=== PATIENT | female | born 1955 ===

== ENCOUNTER 2020-02-02 09:57 | Outpatient (REF) | payer OTHER, SELFPAY ==
[2020-02-02 15:10] LABS: Alanine Aminotransferase 14 U/L (0-31); Albumin Level 4.4 g/dL (3.5-5.0); Alkaline Phosphatase 66 U/L (39-117); Anion Gap 15 (12-20); Aspartate Amino Transferase 10 U/L (5-31); Bilirubin Total 0.5 mg/dL (0.0-1.0); Blood Urea Nitrogen 15 mg/dL (9-16); Calcium 8.9 mg/dL (8.4-10.2); Carbon Dioxide 25 mmol/L (22-29); Chloride 103 mmol/L (96-108); Cholesterol 221 mg/dL; Estimated Glomerular Filt Rate > 60; Glucose Fasting 87 mg/dL (60-99); HDL Cholesterol 86 mg/dL; LDL Cholesterol Calculated 122 mg/dl; Potassium 4.2 mmol/l (3.3-5.1); Sodium 139 mmol/L (135-145); Total Protein 6.8 g/dL (6.5-8.0); Triglycerides 65 mg/dL
[2020-02-02 15:32] LABS: Vitamin D 25-OH Total 40.9 ng/mL (>30)
== END 2020-02-02 09:58 | disposition home or self-care (01) ==
LOC: HO.10HDL 09:57
PROVIDERS: Visit Provider Internal Medicine
DX: E78.00 Pure hypercholesterolemia, unspecified (principal); E55.9 Vitamin D deficiency, unspecified
CPT/HCPCS: 80053; 80061; 82306

== ENCOUNTER 2020-05-23 09:46 | Outpatient (REF) | payer MEDICAID, SELFPAY ==
[2020-05-23 13:48] LABS: MANUAL DIFF FLAG NO
[2020-05-23 13:57] LABS: Basophils Percent Auto 0.5 % (0-2); Eosinophils Absolute Auto 0.4 X10*3/uL (0.0-0.4); Eosinophils Percent Auto 7.2 % (0-4); Hemoglobin 12.6 g/dl (12.0-16.0); Imm Gran Abs Auto 0.02 X10*3/uL (0.00-0.03); Imm Gran Pct Auto 0.3 % (0.0-0.4); Lymphocytes Absolute Auto 2.1 X10*3/uL (1.2-4.9); Lymphocytes Percent Auto 35.6 % (20-40); Mean Corpuscular HGB Conc 32.3 g/dl (31.0-35.0); Mean Corpuscular Hemoglobin 29.9 pg (27.0-33.0); Mean Corpuscular Volume 92.4 fL (80-98); Mean Platelet Volume 9.9 fL (9.4-12.3); Monocytes Absolute Auto 0.3 X10*3/uL (0.1-1.2); Monocytes Percent Auto 4.8 % (2-11); Neutrophils Percent Auto 51.6 % (45-73); Platelet Count 434 X10*3/uL (160-400); Red Blood Count 4.22 X10*6/uL (4.20-5.50); Red Cell Distribution Width 13.2 % (11.0-16.0); White Blood Count 5.8 X10*3/uL (4.8-10.8)
[2020-05-23 14:17] LABS: Anion Gap 15 (12-20); Blood Urea Nitrogen 19 mg/dL (9-16); Calcium 9.5 mg/dL (8.4-10.2); Carbon Dioxide 26 mmol/L (22-29); Chloride 104 mmol/L (96-108); Estimated Glomerular Filt Rate > 60; Glucose Fasting 90 mg/dL (60-99); Magnesium 2.3 mg/dL (1.6-2.6); Potassium 4.4 mmol/L (3.3-5.1); Sodium 141 mmol/L (135-145)
[2020-05-23 14:40] LABS: Erythrocyte Sedimentation Rate 7 MM/HR (0-20)
[2020-05-30 16:02] LABS: Vitamin D 25-OH, D2 10 ng/mL; Vitamin D 25-OH, D3 39 ng/mL; Vitamin D 25-OH, Total 49 ng/mL (30-100)
== END 2020-05-23 09:47 | disposition home or self-care (01) ==
LOC: HO.10HDL 09:46
PROVIDERS: Absent Provider Nurse Practitioner Family; Visit Provider Internal Medicine
DX: M79.10 Myalgia, unspecified site (principal); F41.9 Anxiety disorder, unspecified; E55.9 Vitamin D deficiency, unspecified
CPT/HCPCS: 36415; 80048; 82306; 82550; 83735; 85025; 85652

== ENCOUNTER → 2020-09-20 09:29 | Outpatient (BNVA) | payer MEDICARE, MEDICAID, SELFPAY | PROVIDERS: PCP Internal Medicine; Visit Provider Internal Medicine Gastroenterology | DX: R13.10 Dysphagia, unspecified (principal) | CPT/HCPCS: 99212 ==

== ENCOUNTER 2020-10-14 09:40 | Outpatient (REF) | payer MEDICARE, MEDICAID, SELFPAY ==
--- NOTE | ~2020-10-14 | US_ITS ---
EXAMINATION: US THYROID CLINICAL INFORMATION: Followup multinodular goiter. COMPARISON: Thyroid ultrasound 10/12/2019 and 03/15/2019. Ultrasound-guided thyroid biopsy 04/14/2018. TECHNIQUE: Linear transducer haley-scale and color Doppler examination with attention to the region of the thyroid. FINDINGS: SIZE: Measurements of the thyroid lobes and nodules are given in sagittal, anteroposterior and transverse dimensions respectively. Right Thyroid Lobe: 5.2 x 2.8 x 2.6 cm, volume 19.8 mL. Previously 5.9 x 2.9 x 2.8 cm, volume 24.9 mL. Parenchyma: The gland echotexture is homogeneous. Thyroid vascularity is normal. Left Thyroid Lobe: 5.3 x 2.4 x 2.2 cm, volume 14.6 mL. Previously 6.4 x 2.4 x 2.3 cm, volume 18.8 mL. Parenchyma: The gland echotexture is homogeneous. Thyroid vascularity is normal. Isthmus: 0.3 cm in maximum AP dimension. Previously 0.4 cm. Estimated total number of nodules greater than or equal to 1 cm: 3. Matchbook Assembler nodules are described as follows: 1. Location: Right mid pole. Size: 1.3 x 1.0 x 1.7 cm, volume 1.17 mL. Previously: 1.5 x 1.2 x 1.3 cm, volume 1.18 mL. Nodule characteristics: Composition: Solid/almost completely solid (2). Echogenicity: Hypoechoic (2). Shape: Not taller than wide (0). Margins: Smooth (0). Echogenic Foci: Macrocalcifications (1). ACR TI-RADS total points: 5 Previous: N/A ACR TI-RADS category: 4 Previous: N/A Significant change in size (>/= 20% in 2 dimensions and minimal increase of 2 mm or 50% or greater increase in volume): Change in features: Change in ACR TI-RADS risk category: N/A 2. Location: Left mid pole. Size: 1.5 x 1.0 x 1.4 cm, volume 1.1 mL. Previously: 1.2 x 0.7 x 1.0 cm, volume 0.45 mL. Measurement differences may be due to technical factors/interobserver variation of nodule borders. Nodule characteristics: Composition: Solid/almost completely solid (2). Echogenicity: Hyperechoic (1). Shape: Not taller than wide (0). Margins: Smooth (0). Echogenic Foci: None (0). ACR TI-RADS total points: 3 Previous: N/A ACR TI-RADS category: 3 Previous: N/A Significant change in size (>/= 20% in 2 dimensions and minimal increase of 2 mm or 50% or greater increase in volume): Change in features: Change in ACR TI-RADS risk category: N/A 3. Location: Left lower pole. Size: 1.2 x 1.2 x 1.9 cm, volume 1.4 mL. Previously: 2.2 x 1.7 x 1.8 cm, volume 3.5 mL. Measurement differences may be due to technical factors/interobserver variation of nodule borders. Nodule characteristics: Composition: Solid/almost completely solid (2). Echogenicity: Hyperechoic (1). Shape: Not taller than wide (0). Margins: Smooth (0). Echogenic Foci: None (0). ACR TI-RADS total points: 3 Previous: N/A ACR TI-RADS category: 3 Previous: N/A Significant change in size (>/= 20% in 2 dimensions and minimal increase of 2 mm or 50% or greater increase in volume): Change in features: Change in ACR TI-RADS risk category: N/A NODES: No lymphadenopathy is seen in the tissue surrounding the thyroid gland. US/US thyroid IMPRESSION: Enlarged thyroid gland with bilateral thyroid nodules. Measurement differences in the nodules may be due to technical factors interobserver variation of nodule borders. Right thyroid nodule meets TI-RADS criteria for fine-needle aspiration. ACR TI-RADS RECOMMENDATION REFERENCE: Ultrasound-guided fine-needle aspiration, followup ultrasound, no further followup. * TR1 (0 point) and TR 2 (2 points): No FNA or followup. * TR3 (3 points): FNA if more than or equal to 2.5 cm in maximum dimension, followup ultrasound in 1, 3 and 5 years if 1.5 to 2.4 cm in maximum dimension. * TR4 (4-6 points): FNA if more than or equal to 1.5 cm in maximum dimension, followup ultrasound in 1, 2, 3 and 5 years if 1 to 1.4 cm in maximum dimension. * TR5 (more than or equal to 7 points): FNA if more than or equal to 1 cm in maximum dimension, followup ultrasound every year for 5 years if 0.5 to 0.9 cm in maximum dimension. * TR3, TR4 or TR5 nodules that are below the size threshold for followup receive no followup.
[2020-10-14 11:18] LABS: Free T4 (Free Thyroxine) 0.85 ng/dL (0.71-1.85); Thyroid Stimulating Hormone 0.15 uIU/mL (0.32-4.0)
== END 2020-10-14 09:41 | disposition home or self-care (01) ==
LOC: HO.US 09:40
PROVIDERS: Visit Provider Internal Medicine Endocrinology, Diabetes & Metabolism
DX: E04.2 Nontoxic multinodular goiter (principal)
CPT/HCPCS: 36415; 76536; 84439; 84443

== ENCOUNTER 2020-10-15 08:47 | Outpatient (REF) | payer MEDICARE, MEDICAID, SELFPAY ==
[2020-10-15 10:53] LABS: Free T4 (Free Thyroxine) 0.94 ng/dL (0.71-1.85); Thyroid Stimulating Hormone 0.38 uIU/mL (0.32-4.0)
[2020-10-16 10:36] LABS: Triiodothyronine T3 Total 81 ng/dL (76-181)
[2020-10-18 15:57] LABS: Thyroid Stimulating Immunoglob <89 % baseline (<140)
[2020-10-18 21:51] LABS: Thyrotropin Receptor Antibody <1.00 IU/L (<=2.00)
== END 2020-10-15 08:48 | disposition home or self-care (01) ==
LOC: HO.10HDL 08:47
PROVIDERS: Visit Provider Internal Medicine Endocrinology, Diabetes & Metabolism
DX: E04.2 Nontoxic multinodular goiter (principal); R79.89 Other specified abnormal findings of blood chemistry
CPT/HCPCS: 36415; 83520; 84439; 84443; 84445; 84480

== ENCOUNTER 2020-11-27 08:24 | Outpatient (REF) | payer MEDICARE, MEDICAID, SELFPAY ==
[2020-11-27 10:47] LABS: MANUAL DIFF FLAG NO
[2020-11-27 10:56] LABS: Basophils Percent Auto 0.4 % (0-2); Eosinophils Absolute Auto 0.4 X10*3/uL (0.0-0.4); Hematocrit 38.5 % (37-47); Hemoglobin 12.7 g/dl (12.0-16.0); Imm Gran Abs Auto 0.02 X10*3/uL (0.00-0.03); Imm Gran Pct Auto 0.3 % (0.0-0.4); Lymphocytes Absolute Auto 1.9 X10*3/uL (1.2-4.9); Lymphocytes Percent Auto 26.3 % (20-40); Mean Corpuscular Hemoglobin 30.2 pg (27.0-33.0); Mean Corpuscular Volume 91.7 fL (80-98); Mean Platelet Volume 9.9 fL (9.4-12.3); Monocytes Absolute Auto 0.4 X10*3/uL (0.1-1.2); Monocytes Percent Auto 5.6 % (2-11); Neutrophils Absolute Auto 4.5 X10*3/uL (2.0-8.3); Neutrophils Percent Auto 62.4 % (45-73); Platelet Count 482 X10*3/uL (160-400); Red Cell Distribution Width 13.2 % (11.0-16.0); White Blood Count 7.1 X10*3/uL (4.8-10.8)
[2020-11-27 11:18] LABS: Alanine Aminotransferase 13 U/L (0-31); Albumin Level 4.4 g/dL (3.5-5.0); Alkaline Phosphatase 68 U/L (39-117); Anion Gap 13 (12-20); Aspartate Amino Transferase 9 U/L (5-31); Bilirubin Total 0.8 mg/dL (0.0-1.0); Blood Urea Nitrogen 8 mg/dL (9-16); Calcium 9.9 mg/dL (8.4-10.2); Carbon Dioxide 26 mmol/L (22-29); Chloride 103 mmol/L (96-108); Cholesterol 203 mg/dL; Estimated Glomerular Filt Rate > 60; Glucose Fasting 107 mg/dL (60-99); HDL Cholesterol 80 mg/dL; LDL Cholesterol Calculated 108 mg/dl; Potassium 4.1 mmol/L (3.3-5.1); Sodium 138 mmol/L (135-145); Total Protein 6.6 g/dL (6.5-8.0); Triglycerides 75 mg/dL
== END 2020-11-27 08:25 | disposition home or self-care (01) ==
LOC: HO.10HDL 08:24
PROVIDERS: Visit Provider Internal Medicine
DX: Z13.89 Encounter for screening for other disorder (principal)
CPT/HCPCS: 36415; 80053; 80061; 85025

== ENCOUNTER 2020-11-27 13:19 | Outpatient (REF) | payer MEDICARE, MEDICAID, SELFPAY ==
--- NOTE | ~2020-11-27 | MM_ITS ---
EXAMINATION: MM SCREENING DIGITAL BREAST TOMOSYNTHESIS, BILATERAL CLINICAL INFORMATION: Screening. Asymptomatic. The lifetime risk of breast cancer based on the Tyrer-Cuzick Model is 9%. COMPARISON: Mammography: 12/11/2019, 11/22/2019, 06/27/2018, 06/24/2017 TECHNIQUE: Digital breast tomosynthesis is performed in both the craniocaudal and mediolateral oblique views along with computer-aided detection (CAD). Synthesized 2D images are generated from the tomosynthesis. Additional left MLO view is provided. FINDINGS: There are scattered areas of fibroglandular density (ACR BI-RADS breast composition Category b). Parenchymal pattern is similar to prior exams. Scattered minor parenchymal asymmetries are stable. There is no developing density. No interval mass or architectural abnormality. There are scattered bilateral benign round and coarse and vascular calcifications again seen. The axilla and skin contours are unremarkable. MM/MM tomosynthesis screening BI IMPRESSION: No mammographic evidence of malignancy. ASSESSMENT: BI-RADS 2: Benign RECOMMENDATION: Routine annual mammography screening. This patient's information was entered into a reminder system with a target due date for their next mammogram.
== END 2020-11-27 13:20 | disposition home or self-care (01) ==
LOC: HO.MAMMO 13:19
PROVIDERS: PCP Internal Medicine; Visit Provider Internal Medicine Endocrinology, Diabetes & Metabolism
DX: Z12.31 Encounter for screening mammogram for malignant neoplasm of breast (principal)
CPT/HCPCS: 36415; 77063; 77067; 80053; 80061; 85025

== ENCOUNTER 2020-12-25 09:48 | Day surgery (SDC) | payer MEDICARE, MEDICAID, SELFPAY ==
[2020-12-20 10:25] VITALS: BMI 23.8
--- NOTE | 2020-12-24 10:25 | HO.ANESPROP2 ---
Documented by User: Aditi Hdez NP 12/24/20 10:26 HPI - Anesthesia Eval Consult details Narrative: 65yo F for Upper Endoscopy and Colonoscopy h/o ileostomy and reversal (2017) [facility] Active Problems Active Problems: All Active Problems (Updated 12/20/20 @ 10:34 by Esthela Townsend RN) Dysphagia (Acute) Mild recurrent major depression (Acute) Tachycardia (Acute) Low TSH level (Acute) Multinodular goiter (Acute) Muscle ache (Acute) Hypovitaminosis D (Acute) Anxiety (Acute) Past Medical History Medical History Anxiety COVID-19 vaccine series completed Hypovitaminosis D Low TSH level Mild recurrent major depression Multinodular goiter Muscle ache Tachycardia Family History Family History Father Colon cancer Mother Breast cancer Brother Brain cancer Paternal Uncle Lung cancer Sister Breast cancer Substance use disorder Surgical History Surgical History H/O colonoscopy History of ankle surgery History of appendectomy History of ileostomy History of reversal of ileostomy History of tonsillectomy Social History Social History Housing: House Are you a primary hospice home care coordinator to a significant other at home: No Do you presently have visiting nurse or other home services: No Patient Tobacco Use Status: Never used Tobacco e-Cigarette/Vaping Use: Never Used Second Hand Smoke Exposure: No Have you been hit, kicked, punched, or otherwise hurt by someone within the past year? If so, by whom?: No Are you DNR?: No Advance Directives: No (Pt states she has one - asked to bring in copy) Advance Directives Information Provided: No Advance Directives on File: No (Pt states should be on file here from 2016) Recently lost weight without trying: No Eating poorly because of decreased appetite: No Nutrition Risks: No Nutritional Risk Patient : No service: No Current occupational status: unemployed Meds Allergies Allergy/AdvReac Type Severity Reaction Status Date / Time acetaminophen [Percocet] Allergy Intermediate formication Verified 11/20/20 09:00 hydrocodone [From VICODIN] AdvReac Intermediate VOMMITING,DIZZY, Verified 11/20/20 09:00 NAUSEA tramadol [TRAMADOL] AdvReac Intermediate NAUSEA & Verified 11/20/20 09:00 VOMITING oxycodone [From Percocet] AdvReac Mild Formication Verified 11/20/20 09:00 Exam Exam Date and Time: December 24, 2020 1025 Height,Weight and Vital Signs: Height 5 ft 2 in Weight 58.967 kg Pertinent Lab Results Pertinent Lab Results: Laboratory Tests 11/27/20 11/27/20 08:30 08:30 WBC 7.1 Hgb 12.7 Hct 38.5 Plt Count 482 H Sodium 138 Potassium 4.1 Chloride 103 Carbon Dioxide 26 BUN 8 L D Creatinine 0.85 Assessment and Plan Assessment Anesthesia Assessment: Chart Reviewed Documented by User: Yodit Yost MD 12/25/20 10:13 [facility] Past Medical History Medical History Anxiety COVID-19 vaccine series completed Hypovitaminosis D Low TSH level Mild recurrent major depression Multinodular goiter Muscle ache Tachycardia Family History Family History Father Colon cancer Mother Breast cancer Brother Brain cancer Paternal Uncle Lung cancer Sister Breast cancer Substance use disorder Family history of problems with anesthesia: No Surgical History Surgical History H/O colonoscopy History of ankle surgery History of appendectomy History of ileostomy History of reversal of ileostomy History of tonsillectomy History of Problems with Anesthesia: Yes (Ponv. Patient requesting scopalamine patch) Social History Social History Housing: House Are you a primary hospice home care coordinator to a significant other at home: No Do you presently have visiting nurse or other home services: No Patient Tobacco Use Status: Never used Tobacco e-Cigarette/Vaping Use: Never Used Second Hand Smoke Exposure: No Have you been hit, kicked, punched, or otherwise hurt by someone within the past year? If so, by whom?: No Are you DNR?: No Advance Directives: No (Pt states she has one - asked to bring in copy) Advance Directives Information Provided: No Advance Directives on File: No (Pt states should be on file here from 2016) Recently lost weight without trying: No Eating poorly because of decreased appetite: No Nutrition Risks: No Nutritional Risk Patient : No service: No Current occupational status: unemployed Meds Allergies Allergy/AdvReac Type Severity Reaction Status Date / Time acetaminophen [Percocet] Allergy Intermediate formication Verified 11/20/20 09:00 hydrocodone [From VICODIN] AdvReac Intermediate VOMMITING,DIZZY, Verified 11/20/20 09:00 NAUSEA tramadol [TRAMADOL] AdvReac Intermediate NAUSEA & Verified 11/20/20 09:00 VOMITING oxycodone [From Percocet] AdvReac Mild Formication Verified 11/20/20 09:00 Exam Height,Weight and Vital Signs: Height 5 ft 2 in Weight 58.967 kg Vital Signs Temp Pulse Resp BP Pulse Ox 12/25/20 10:05 99.9 F 85 16 128/92 H 98 Airway Mallampati Class: II TM Dist: >3cm Neck ROM: Full Loose/Missing/Broken Teeth: Yes (Missing top left) Heart: RRR Lungs: CTAB Assessment and Plan Assessment Anesthesia Assessment: Anesthesia Plan Discussed Final Anesthetic Review Family History of Problems with Anesthesia: No History of Problems with Anesthesia: Yes (Ponv. Patient requesting scopalamine patch) NPO: Yes ASA Class: II Final Preanesthetic Review: No Changes in Pt Med Stat, Meds/Allgs Chart Reviewed, Consent Obtained/Reviewed and Anes Risks/Benef Reviewed Patient Risk: Low Procedure Risk: Low Assessment/Block/Sedation in SS: Assess/Block/Sedation-SS Anesthetic Plan Anesthetic Plan: MAC: Disposition: Standard PACU
[2020-12-25 10:05] VITALS: BP 128/92; PULSE 85; RESP 16; TEMP 37.7; O2SAT 98
--- NOTE | 2020-12-25 10:05 | MHC.SHP ---
Pre-Procedural Eval Section A Date of Service: 12/25/20 Section B Chief Complaint: dysphagia Details of Present Illness: father had CRC Relevant Family History (Specify if Yes): Yes Relevant Social History: None Present Medications: see Short Stay Collaborative assessment Medical History: Significant History (Anxiety COVID-19 vaccine series completed Hypovitaminosis D Low TSH level Mild recurrent major depression Multinodular goiter Muscle ache Tachycardia) History of Previous Operations: Relevant previous surgery/procedure and date(s) (H/O colonoscopy History of ankle surgery History of appendectomy History of ileostomy History of reversal of ileostomy History of tonsillectomy) Allergies: Allergies Allergy/AdvReac Type Severity Reaction Status Date / Time acetaminophen [Percocet] Allergy Intermediate formication Verified 11/20/20 09:00 hydrocodone [From VICODIN] AdvReac Intermediate VOMMITING,DIZZY, Verified 11/20/20 09:00 NAUSEA tramadol [TRAMADOL] AdvReac Intermediate NAUSEA & Verified 11/20/20 09:00 VOMITING oxycodone [From Percocet] AdvReac Mild Formication Verified 11/20/20 09:00 Review of Systems Sugical H&P ROS: Negative: Constitution, Cardiovascular, Respiratory, Neurological, Psychiatric, Hem-Onc, Allergic/Immunologic, Gastrointestinal, Genitourinary, Musculoskeletal, Integumentary, Endocrine and Eyes/Ears/Nose/Throat Exam Surgical H&P Exam: Normal: HEENT, Normal: Heart, Normal: Lungs, Normal: Extremities, Normal: Abdomen, Normal: Skin and Normal: Neurological Plan Diagnosis/Plan: Unchanged I have reviewed the history and physical and performed a pertinent physical examination on my patient. No changes have occurred unless specified.
[2020-12-25] MEDS: Scopolamine 1.5 MG PATCH.TD.3 TRANSDERMA (10:28)
[2020-12-25] MEDS: Lactated Ringers 1,000 ML 100 ML IVCONT (10:31)
--- NOTE | 2020-12-25 11:04 | P.BOP_ITS ---
Brief Operative Note Date of Service: 12/25/20 Pre-op diagnosis: dysphagia and screening colonoscopy Post-op diagnosis: same Procedure: see op note Surgeon: Kimber White MD Anesthesia: MAC Was an Financial Quantitative Analyst used for this Procedure?: No Estimated blood loss (mL): 0 Condition: stable Disposition: PACU
--- NOTE | 2020-12-25 11:04 | P.OP_ITS ---
Operative Note Operative Note Date of Service: 12/25/20 Narrative: Operative Information Procedure Description: EGD, Colonoscopy FLEXIBLE TRANSORAL UPPER GASTROINTESTINAL ENDOSCOPY AND COLONOSCOPY PROCEDURE NOTE UPPER ENDOSCOPY Consent: Indications for the procedure and potential complications of bleeding, perforation, reaction to medications and missed diagnosis were discussed with the patient and informed consent was obtained. Instrument: Olympus GIF H 190 J mid size upper endoscope Monitoring: Vital signs and clinical assessment, continuous EKG monitoring, Pulse oximetry, Carbon Dioxide monitoring and blood pressure monitoring were done throughout the procedure. Procedure: The patient was placed in the left lateral decubitis position and pre-procedure medications were administered and a bite block was placed. The endoscope was inserted into the mouth and advanced under direct vision to the third part of duodenum. A careful inspection was made as the upper endoscope was withdrawn including a retroflexed examination of the proximal stomach; Findings and interventions are described below. Findings: Larynx:normal Esophagus: GE junction at 38 cm, diaphragm hiatus at 38 cm, balloon dilation to 20 mm at lower esophagus, small tear noted at GEJ. Before dilation LA grade A esophagitis noted. random esophagus bx taken. Aslo upper esophagus dilated to 19 mm. Tertiary contractions noted Stomach: Streaky erythema. Biopsies were obtained. Grade 2 flap valve on retroflexed examination of the cardia. Duodenum: Mild bulbar duodenitis, normal descending duodenum, bx taken Intervention: Biopsies as noted above COLONOSCOPY Instrument: Olympus variable stiffness pediatric scope 190L Colonoscopy Monitoring: Vital signs and clinical assessment, continuous EKG monitoring, Pulse oximetry, Carbon Dioxide monitoring and blood pressure monitoring were done throughout the procedure. Colon withdrawal time was 11 minutes. Procedure: The patient was placed in the left lateral decubitis position and pre-procedure medications were administered. After a digital rectal examination of the ano-rectum, the video colonoscope was inserted into the rectum and advanced through the colon to the cecum/TI. The colonoscope was slowly withdrawn in a retrograde panoramic fashion and the colon mucosa was carefully examined including a retroflexed view of the rectum. Findings and interventions are described below. Procedure Difficulty: easy Findings: Terminal Ileum-normal Cecum:normal Ascending Colon: normal Transverse Colon -normal Descending Colon:normal Sigmoid Colon: scattered diverticula noted Rectum: Retroflexion with moderate sized internal hemorrhoids, grade I Anorectum - normal Colon preparation: [place] Bowel Preparation Scale Right colon; 2 (borderline 2--sticky stool adherent to mucosa, hard to wash) Transverse colon: 3 Left colon; 3 (0 = Unprepared colon segment with mucosa not seen due to solid stool that cannot be cleared. 1 = Portion of mucosa of the colon segment seen, but other areas of the colon segment not well seen due to staining, residual stool and/or opaque liquid. 2 = Minor amount of residual staining, small fragments of stool and/or opaque liquid, but mucosa of colon segment seen well. 3 = Entire mucosa of colon segment seen well with no residual staining, small fragments of stool or opaque liquid) Impression and Post Procedure Diagnosis: Endoscopy Findings: gastritis duodenitis esophagitis stricture Colonoscopy Findings: diverticulosis internal hemorrhoids Plan: Await Pathology results Repeat Colonoscopy in 5 years due to borderline prep right colon or earlier if clinically indicated High fiber diet leaflet avoid straining at stool, epsom salts and sitz bath, anusol supps or cream high dose PPI for 3 months and assess respone if agrees Above findings were reviewed with the patient and relevant handouts were provided if indicated.
[2020-12-25 12:26] VITALS: BP 97/62; PULSE 71; RESP 16; TEMP 36.8; O2SAT 97
[2020-12-25 12:41] VITALS: BP 117/77; PULSE 64; RESP 16; TEMP 36.8; O2SAT 96
== END 2020-12-25 13:21 | disposition home or self-care (01) ==
PROVIDERS: PCP Internal Medicine; Visit Provider Internal Medicine Gastroenterology
PROC: (CPT 43249; principal; 2020-12-25 10:50)
DX: Z12.11 Encounter for screening for malignant neoplasm of colon (principal); K57.30 Diverticulosis of large intestine without perforation or abscess without bleeding; K64.0 First degree hemorrhoids; Z80.0 Family history of malignant neoplasm of digestive organs; R13.10 Dysphagia, unspecified; K22.2 Esophageal obstruction; K20.90 Esophagitis, unspecified without bleeding; K29.70 Gastritis, unspecified, without bleeding; K29.80 Duodenitis without bleeding; Z88.5 Allergy status to narcotic agent
CPT/HCPCS: 43249; 43239; G0105; 88305; 88342; C1726; J3010

== ENCOUNTER 2020-12-31 19:57 | Inpatient (IN) | payer MEDICARE, MEDICAID, SELFPAY ==
--- NOTE | ~2020-12-31 | CT_ITS ---
EXAMINATION: CT ABDOMEN AND PELVIS WITHOUT CONTRAST CLINICAL INFORMATION: Lower abdominal pain. History of ischemic bowel. COMPARISON: CT abdomen/pelvis dated from 03/24/2016. TECHNIQUE: Multidetector volumetric imaging was performed from the superior aspect of the liver through the pubic symphysis. Sagittal and coronal reformatted images were obtained on the technologist's workstation. This CT examination was performed using dose optimization techniques as appropriate, variously including the following: *Automated exposure control *Adjustment of mA and/or kV according to patient size (this includes techniques or standardized protocols for targeted exams where dose is matched to indication/reason for exam; i.e. extremities or head) *Use of iterative reconstruction technique DLP: 390 mGy-cm FINDINGS: LUNG BASES: Dependent atelectasis. No focal consolidation or pleural effusion. Trace amount of pericardial fluid. Coronary calcifications. Asymmetric soft tissue densities in the left breast (4:3). LIVER, GALLBLADDER, AND BILIARY TREE: The liver is normal in size, shape, and attenuation. A small hypodensity in the hepatic dome (43:5) is unchanged since 2016 and likely represents a simple cyst. The gallbladder is unremarkable with no evidence of radiopaque gallstones, gallbladder wall thickening, or obvious pericholecystic inflammatory changes. PANCREAS: The main pancreatic duct is nondilated. No focal abnormalities. No peripancreatic free fluid or fat stranding. SPLEEN: Unremarkable. ADRENAL GLANDS: A 8 mm nodularity in the right adrenal gland measuring less than 10 Hounsfield units is stable since 2016 and most consistent with an adenoma. Unchanged prominence of the medial limb of the left adrenal gland. KIDNEYS AND URETERS: The kidneys are normal in size, shape, and attenuation. No hydronephrosis, hydroureter, or calculi seen. No perinephric stranding. BLADDER: Unremarkable. GASTROINTESTINAL TRACT: The stomach and the small bowel are nondilated. Surgical sutures are noted in the right abdomen at the level of the distal ileum with stagnated stool (44:3) but no surrounding inflammatory changes. There are also surgical sutures in the rectosigmoid junction (63:3) with large volume of stool in the rectum. There is wall thickening and mild inflammatory changes of the colon starting at the level of the splenic flexure and extending throughout the majority of the descending colon. Moderate colonic diverticulosis. There is no bowel obstruction. ABDOMINAL WALL: Midline surgical scarring. Small fat-containing periumbilical hernias. Small fat-containing right Spigelian hernia (52:3). LYMPH NODES: A few prominent mesenteric lymph nodes in the right lower quadrant are indeterminate and possibly reactive, for instance measuring up to 1 cm on coronal image 41: 5. VASCULAR: Extensive atherosclerotic disease of the abdominal aorta and its branches. The abdominal aorta is of normal caliber. PELVIC VISCERA: Unremarkable. OSSEOUS STRUCTURES: No acute or aggressive osseous findings. Multilevel degenerative changes. CT/CT abdomen pelvis wo con IMPRESSION: Wall thickening and inflammatory changes of the colon at the level of the splenic flexure and descending colon, most consistent with a segmental colitis, possibly ischemic following the vascular territory of the inferior mesenteric artery. No free air or drainable collection. Large amount stool in the rectum suggesting constipation. No significant perirectal fat stranding. Scattered diverticulosis throughout the colon. Asymmetric soft tissues in the left breast possibly related with normal breast tissue. Correlate with mammographic examinations.
[2020-12-31 20:14] VITALS: BP 136/70; BP 162/90; PULSE 60; PULSE 67; RESP 18; TEMP 36.6; O2SAT 97; O2SAT 98; BMI 23.8
--- NOTE | 2020-12-31 20:27 | ED_ITS ---
HPI - Abdominal Pain General Chief Complaint: Abdominal Pain Stated Complaint: epigastric pain and vomiting Time Seen by Provider: 12/31/20 20:27 Source: patient Mode of arrival: ambulatory Limitations: no limitations History of Present Illness HPI narrative: Patient with history of GERD, dysphagia, goiter,, diverticulitis, ileostomy, status post bowel perforation with closure had colonoscopy 12/25 which was essentially negative complaining of sudden onset of lower abdominal pain while having dinner with nausea and vomiting felt like moving her bowels but did not have any bowel movement no fever no chills no blood in the stool pain is cramping Related Data Previous Rx's Medication Instructions Recorded fluticasone propionate 50 1 spray INTRANASAL DAILY #16 ml 06/15/20 mcg/actuation nasal spray,suspension cholecalciferol (vitamin D3) 50 50 mcg PO DAILY #90 tab 09/21/20 mcg (2,000 unit) tablet (Vitamin D3) escitalopram oxalate 10 mg tablet 10 mg PO BEDTIME 90 Days #90 tab 11/20/20 Allergies Allergy/AdvReac Type Severity Reaction Status Date / Time hydrocodone [From VICODIN] AdvReac Intermediate VOMMITING,DIZZY, Verified 12/25/20 10:23 NAUSEA tramadol [TRAMADOL] AdvReac Intermediate NAUSEA & Verified 12/25/20 10:23 VOMITING oxycodone [From Percocet] AdvReac Mild Formication Verified 12/25/20 10:23 Review of Systems Review of Systems Yes all other systems are reviewed and are negative Physical Exam Vital Signs: Vital Signs: Last Vital Signs Temp 97.8 F 01/01/21 01:26 Pulse 65 01/01/21 01:26 Resp 16 12/31/20 21:27 BP 118/68 01/01/21 01:26 Pulse Ox 95 01/01/21 01:26 Body Mass Index 23.8 Appearance: Alert. Oriented X3. In mild distress. Eyes: No pallor or icterus ENT: Pharynx normal. Oral Mucosa moist Neck: Normal inspection. Neck supple. CVS: Normal heart rate and rhythm. Pulses normal. Respiratory: No respiratory distress. Equal air entry bilateral, no wheezing/rales/rhonchi Abdomen: Soft and diffuse tenderness lower abdomen no rebound tenderness or guarding Bowel sounds are present, no mass palpable, no CVA tenderness Skin: Skin warm and dry. Normal skin color. Normal skin turgor. Extremities: No lower extremity edema no calf tenderness Neuro: Alert oriented x3 no focal deficit MDM - Abdominal Pain MDM Narrative Medical decision making narrative: Patient with sudden onset of left lower quadrant pain when try to move her bowel with multiple times of vomiting normal lactic acid level CT scan with colitis findings possible ischemic but lactic acid is normal and patient does not have any blood in stool unlikely ischemic. Will admit patient to medical service case discussed with surgeon Dr. Hollis like to have patient IV hydration and the pain comes back or get worse will evaluate the patient Differential Diagnosis Differential diagnosis: Likely abdominal pain Lab Data Attestation: I reviewed the patient's lab results. Result diagrams: 12/31/20 20:52 12/31/20 20:52 Labs: Lab Results 12/31/20 12/31/20 12/31/20 Range/Units 20:52 20:52 20:52 WBC 12.3 H (4.8-10.8) X10*3/uL RBC 4.24 (4.20-5.50) X10*6/uL Hgb 12.9 (12.0-16.0) g/dl Hct 38.4 (37-47) % MCV 90.6 (80-98) fL MCH 30.4 (27.0-33.0) pg MCHC 33.6 (31.0-35.0) g/dl RDW 12.9 (11.0-16.0) % Plt Count 377 (160-400) X10*3/uL MPV 9.3 L (9.4-12.3) fL Immature Gran % (Auto) 0.3 (0.0-0.4) % Neut % (Auto) 77.1 H (45-73) % Lymph % (Auto) 15.6 L (20-40) % [place] % (Auto) 4.2 (2-11) % Eos % (Auto) 2.6 (0-4) % Baso % (Auto) 0.2 (0-2) % Lymph # (Auto) 1.9 (1.2-4.9) X10*3/uL [place] # (Auto) 0.5 (0.1-1.2) X10*3/uL Eos # (Auto) 0.3 (0.0-0.4) X10*3/uL Baso # (Auto) 0.0 (0.0-0.2) X10*3/uL Abs Immat Gran (auto) 0.04 H (0.00-0.03) X10*3/uL Absolute Neuts (auto) 9.5 H (2.0-8.3) X10*3/uL Absolute Nucleated RBC 0.000 (0.0-0.012) X10*3/uL Nucleated RBC % (auto) 0.0 (0.0-0.2) /100WBC Sodium 142 (135-145) mmol/L Potassium 4.0 (3.3-5.1) mmol/L Chloride 105 (96-108) mmol/L Carbon Dioxide 26 (22-29) mmol/L Anion Gap 15 (12-20) BUN 22 H D (9-16) mg/dL Creatinine 1.20 (0.5-1.4) mg/dL Estim Creat Clear Calc 36.9 Estimated GFR 45 Random Glucose 115 (60-115) mg/dL Lactic Acid 1.1 (0.5-2.0) mmol/L Calcium 10.0 (8.4-10.2) mg/dL Total Bilirubin 0.3 (0.0-1.0) mg/dL AST 12 (5-31) U/L ALT 23 (0-31) U/L Alkaline Phosphatase 77 (39-117) U/L Total Protein 6.9 (6.5-8.0) g/dL Albumin 4.5 (3.5-5.0) g/dL Lipase 61 (8-78) U/L COVID-19 (ONI) (Negative) COVID-19 Clin Com 12/31/20 Range/Units 20:52 WBC (4.8-10.8) X10*3/uL RBC (4.20-5.50) X10*6/uL Hgb (12.0-16.0) g/dl Hct (37-47) % MCV (80-98) fL MCH (27.0-33.0) pg MCHC (31.0-35.0) g/dl RDW (11.0-16.0) % Plt Count (160-400) X10*3/uL MPV (9.4-12.3) fL Immature Gran % (Auto) (0.0-0.4) % Neut % (Auto) (45-73) % Lymph % (Auto) (20-40) % [place] % (Auto) (2-11) % Eos % (Auto) (0-4) % Baso % (Auto) (0-2) % Lymph # (Auto) (1.2-4.9) X10*3/uL [place] # (Auto) (0.1-1.2) X10*3/uL Eos # (Auto) (0.0-0.4) X10*3/uL Baso # (Auto) (0.0-0.2) X10*3/uL Abs Immat Gran (auto) (0.00-0.03) X10*3/uL Absolute Neuts (auto) (2.0-8.3) X10*3/uL Absolute Nucleated RBC (0.0-0.012) X10*3/uL Nucleated RBC % (auto) (0.0-0.2) /100WBC Sodium (135-145) mmol/L Potassium (3.3-5.1) mmol/L Chloride (96-108) mmol/L Carbon Dioxide (22-29) mmol/L Anion Gap (12-20) BUN (9-16) mg/dL Creatinine (0.5-1.4) mg/dL Estim Creat Clear Calc Estimated GFR Random Glucose (60-115) mg/dL Lactic Acid (0.5-2.0) mmol/L Calcium (8.4-10.2) mg/dL Total Bilirubin (0.0-1.0) mg/dL AST (5-31) U/L ALT (0-31) U/L Alkaline Phosphatase (39-117) U/L Total Protein (6.5-8.0) g/dL Albumin (3.5-5.0) g/dL Lipase (8-78) U/L COVID-19 (ONI) Negative (Negative) COVID-19 Clin Com See Note Discharge Plan Discharge Clinical Impression: Abdominal pain Qualifiers: Abdominal location: left lower quadrant Qualified Code(s): R10.32 - Left lower quadrant pain Patient Disposition: Admitted As Inpatient [facility] Past Medical History Medical History Anxiety COVID-19 vaccine series completed Hypovitaminosis D Low TSH level Mild recurrent major depression Multinodular goiter Muscle ache Tachycardia Surgical History H/O colonoscopy History of ankle surgery History of appendectomy History of ileostomy History of reversal of ileostomy History of tonsillectomy Family History Family History Father Colon cancer Mother Breast cancer Brother Brain cancer Paternal Uncle Lung cancer Sister Breast cancer Substance use disorder Social History Social History Housing: House Are you a primary child care leader to a significant other at home: No Do you presently have visiting nurse or other home services: No Patient Tobacco Use Status: Never used Tobacco e-Cigarette/Vaping Use: Never Used Second Hand Smoke Exposure: No Use of substances other than those prescribed or required for medical reasons: No Advance Directives: No Advance Directives Information Provided: No service: No Current occupational status: unemployed
[2020-12-31 20:59] LABS: MANUAL DIFF FLAG NO
[2020-12-31 21:01] LABS: Basophils Percent Auto 0.2 % (0-2); Eosinophils Absolute Auto 0.3 X10*3/uL (0.0-0.4); Eosinophils Percent Auto 2.6 % (0-4); Hematocrit 38.4 % (37-47); Hemoglobin 12.9 g/dl (12.0-16.0); Imm Gran Abs Auto 0.04 X10*3/uL (0.00-0.03); Imm Gran Pct Auto 0.3 % (0.0-0.4); Lymphocytes Absolute Auto 1.9 X10*3/uL (1.2-4.9); Lymphocytes Percent Auto 15.6 % (20-40); Mean Corpuscular HGB Conc 33.6 g/dl (31.0-35.0); Mean Corpuscular Hemoglobin 30.4 pg (27.0-33.0); Mean Corpuscular Volume 90.6 fL (80-98); Mean Platelet Volume 9.3 fL (9.4-12.3); Monocytes Absolute Auto 0.5 X10*3/uL (0.1-1.2); Monocytes Percent Auto 4.2 % (2-11); Neutrophils Absolute Auto 9.5 X10*3/uL (2.0-8.3); Neutrophils Percent Auto 77.1 % (45-73); Platelet Count 377 X10*3/uL (160-400); Red Blood Count 4.24 X10*6/uL (4.20-5.50); Red Cell Distribution Width 12.9 % (11.0-16.0); White Blood Count 12.3 X10*3/uL (4.8-10.8)
[2020-12-31 21:11] LABS: Lactic Acid 1.1 mmol/L (0.5-2.0)
[2020-12-31 21:15] LABS: Alanine Aminotransferase 23 U/L (0-31); Albumin Level 4.5 g/dL (3.5-5.0); Alkaline Phosphatase 77 U/L (39-117); Anion Gap 15 (12-20); Aspartate Amino Transferase 12 U/L (5-31); Bilirubin Total 0.3 mg/dL (0.0-1.0); Blood Urea Nitrogen 22 mg/dL (9-16); Carbon Dioxide 26 mmol/L (22-29); Chloride 105 mmol/L (96-108); Creatinine Clr Calc Pharmacy 36.9; Estimated Glomerular Filt Rate 45; Glucose Random 115 mg/dL (60-115); Lipase 61 U/L (8-78); Sodium 142 mmol/L (135-145); Total Protein 6.9 g/dL (6.5-8.0)
[2020-12-31 21:19] LABS: COVID-19 Test Negative (Negative); IDNOW Serial# 9DD0AD1C
[2020-12-31 21:24] VITALS: RESP 15
[2020-12-31] MEDS: Morphine Sulfate 4 MG/ML CARTRIDGE IVPUSH (21:24)
[2020-12-31] MEDS: ondansetron HCL 4 MG/2 ML VIAL IVPUSH (21:25)
[2020-12-31] MEDS: 0.9 % Sodium Chloride 1,000 ML 999 ML IVCONT ×2 (21:25→23:47)
[2020-12-31 21:27] VITALS: BP 136/57; PULSE 69; RESP 16; TEMP 36.5; O2SAT 97
--- NOTE | 2020-12-31 23:25 | PC.NURSE ---
Hospitalist at bedside for evaluation.
--- NOTE | 2020-12-31 23:49 | PM.IMHP ---
History of Present Illness Date of Service: 12/31/20 Chief Complaint: Abdominal pain This is a 65-year-old female with past medical history of anxiety, history of complicated colon perforation status post ileostomy and reversal of ileostomy, presents to the hospital with complaints of abdominal pain. Patient reports that she was having supper, when she felt that she had to move her bowels, she then had significant nausea and multiple episodes of vomiting and developed diffuse abdominal pain. The pain was 10/10, intermittent, nonradiating, cramping, associated with nausea vomiting, improved by time she arrived to the hospital. Patient reports no bowel movements today, denies any fever or chills, denies any headache, change in vision, no chest pain shortness of breath, no urinary symptoms and no lower extremity edema Of note patient underwent colonoscopy about 2 weeks ago with no complications per patient. Only diverticulosis was found at the time. On arrival to the ED vitals reviewed with no significant abnormality Labs are significant for WBC count of 12.3, with a left shift, otherwise unremarkable. COVID negative, normal lactic acid Abdominal CT shows wall thickening and inflammatory changes of the colon at the level of the splenic flexure and descending colon. Most consistent with a segmental colitis. Possibly ischemic as it is following the vascular territory of the inferior mesenteric artery. Large amount of stools in the rectum suggesting constipation. General surgery was consulted, patient will be admitted for monitor Review of Systems Review of Systems: Yes all other systems are reviewed and are negative [facility] Medical History Anxiety COVID-19 vaccine series completed Hypovitaminosis D Low TSH level Mild recurrent major depression Multinodular goiter Muscle ache Tachycardia Family History Father Colon cancer Mother Breast cancer Brother Brain cancer Paternal Uncle Lung cancer Sister Breast cancer Substance use disorder Pertinent family history: No pertinent history Surgical History H/O colonoscopy History of ankle surgery History of appendectomy History of ileostomy History of reversal of ileostomy History of tonsillectomy Social History Housing: House Are you a primary child care lead teacher to a significant other at home: No Do you presently have visiting nurse or other home services: No Patient Tobacco Use Status: Never used Tobacco e-Cigarette/Vaping Use: Never Used Second Hand Smoke Exposure: No Use of substances other than those prescribed or required for medical reasons: No Advance Directives: No Advance Directives Information Provided: No service: No Current occupational status: unemployed Meds Allergies Allergy/AdvReac Type Severity Reaction Status Date / Time hydrocodone [From VICODIN] AdvReac Intermediate VOMMITING,DIZZY, Verified 12/25/20 10:23 NAUSEA tramadol [TRAMADOL] AdvReac Intermediate NAUSEA & Verified 12/25/20 10:23 VOMITING oxycodone [From Percocet] AdvReac Mild Formication Verified 12/25/20 10:23 Physical Exam Vital Signs and Narrative: Vital Signs: Last Vital Signs Temp 97.7 F 12/31/20 21:27 Pulse 69 12/31/20 21:27 Resp 16 12/31/20 21:27 BP 136/57 L 12/31/20 21:27 Pulse Ox 97 12/31/20 21:27 Body Mass Index 23.8 Const: General: cooperative and no acute distress Orientation/consciousness: patient oriented x3 Eyes: General: appearance normal, both eyes and all related structures Resp: Effort & Inspection: normal respiratory effort Auscultation: clear to auscultation bilaterally Cardio: Rate: regular rate Rhythm: regular rhythm GI: Other: Diffuse Mild tenderness on palpation, no rebound or guarding. Abdomen is slightly distended Palpation (GI): Soft to palpation Auscultation: normal bowel sounds Skin: General skin exam: no rashes or lesions noted Neuro: General: patient oriented x3 Cognition (Neuro): normal cognition Extrem: General: Yes normal to inspection and Yes no pedal edema Results Labs CBC and Chem 7: 12/31/20 20:52 12/31/20 20:52 Labs: Laboratory Results - last 24 hr 12/31/20 12/31/20 12/31/20 20:52 20:52 20:52 MCV 90.6 MCH 30.4 MCHC 33.6 RDW 12.9 Plt Count 377 MPV 9.3 L Immature Gran % (Auto) 0.3 Neut % (Auto) 77.1 H Lymph % (Auto) 15.6 L [place] % (Auto) 4.2 Eos % (Auto) 2.6 Baso % (Auto) 0.2 Lymph # (Auto) 1.9 [place] # (Auto) 0.5 Eos # (Auto) 0.3 Baso # (Auto) 0.0 Abs Immat Gran (auto) 0.04 H Absolute Neuts (auto) 9.5 H Absolute Nucleated RBC 0.000 Nucleated RBC % (auto) 0.0 Anion Gap 15 Estim Creat Clear Calc 36.9 Estimated GFR 45 Random Glucose 115 Lactic Acid 1.1 Calcium 10.0 Total Bilirubin 0.3 AST 12 ALT 23 Alkaline Phosphatase 77 Total Protein 6.9 Albumin 4.5 Lipase 61 COVID-19 (ONI) COVID-19 Clin Com 12/31/20 20:52 MCV MCH MCHC RDW Plt Count MPV Immature Gran % (Auto) Neut % (Auto) Lymph % (Auto) [place] % (Auto) Eos % (Auto) Baso % (Auto) Lymph # (Auto) [place] # (Auto) Eos # (Auto) Baso # (Auto) Abs Immat Gran (auto) Absolute Neuts (auto) Absolute Nucleated RBC Nucleated RBC % (auto) Anion Gap Estim Creat Clear Calc Estimated GFR Random Glucose Lactic Acid Calcium Total Bilirubin AST ALT Alkaline Phosphatase Total Protein Albumin Lipase COVID-19 (ONI) Negative COVID-19 Clin Com See Note Imaging Radiologist's Impressions: Impressions Abdomen/Pelvis CT 12/31/20 20:32 IMPRESSION: Wall thickening and inflammatory changes of the colon at the level of the splenic flexure and descending colon, most consistent with a segmental colitis, possibly ischemic following the vascular territory of the inferior mesenteric artery. No free air or drainable collection. Large amount stool in the rectum suggesting constipation. No significant perirectal fat stranding. Scattered diverticulosis throughout the colon. Asymmetric soft tissues in the left breast possibly related with normal breast tissue. Correlate with mammographic examinations. Assessment and Plan (1) Abdominal pain: Qualifiers: Abdominal location: left lower quadrant Qualified Code(s): R10.32 - Left lower quadrant pain Status: Acute (2) Colitis: Status: Acute 65-year-old female with past medical history significant for depression anxiety presents to the hospital with abdominal pain # abdominal pain - secondary to colitis, ischemic versus infectious - patient has leukocytosis with no fever, no tachycardia or tachypnea - normal lactic acid making ischemic colitis less likely - has no history of arrhythmia - at this time will start on IV antibiotic - follow-up culture - general surgery consult # colitis - ischemic versus infectious versus post colonoscopy - findings as above on CT scan of the abdomen - will start her on antibiotics - follow culture # depression anxiety - continue home medication DVT prophylaxis: lovenox Quality Stroke Does the patient have a stroke diagnosis?: No VTE Prior VTE?: No VTE Risk Level:: Medical - moderate - high VTE Device Contraindication: Treatment Not Indicated VTE Drug Contraindication: N/A - Med Ordered
[2021-01-01] VITALS (7 sets, daily range): BP systolic 118–146; BP diastolic 68–90; PULSE 65–77; RESP 15–20; TEMP 36.6–37.4; O2SAT 94–98
[2021-01-01] MEDS: metroNIDAZOLE/NS 500 MG/100 ML PIGGYBACK 100 MG IV ×3 (02:20→20:10)
[2021-01-01] MEDS: Lactated Ringers 1,000 ML 80 ML IVCONT ×2 (02:21→17:59)
[2021-01-01] MEDS: levoFLOXacin/D5W 750 MG/150 ML PIGGYBACK 100 MG IV (03:23)
[2021-01-01 07:00] LABS: MANUAL DIFF FLAG NO
[2021-01-01 07:07] LABS: Basophils Percent Auto 0.2 % (0-2); Eosinophils Percent Auto 0.2 % (0-4); Hematocrit 33.2 % (37-47); Hemoglobin 11.1 g/dl (12.0-16.0); Imm Gran Abs Auto 0.05 X10*3/uL (0.00-0.03); Imm Gran Pct Auto 0.5 % (0.0-0.4); Lymphocytes Absolute Auto 0.9 X10*3/uL (1.2-4.9); Lymphocytes Percent Auto 9.1 % (20-40); Mean Corpuscular HGB Conc 33.4 g/dl (31.0-35.0); Mean Corpuscular Hemoglobin 30.2 pg (27.0-33.0); Mean Corpuscular Volume 90.5 fL (80-98); Mean Platelet Volume 9.4 fL (9.4-12.3); Monocytes Absolute Auto 0.5 X10*3/uL (0.1-1.2); Monocytes Percent Auto 4.4 % (2-11); Neutrophils Absolute Auto 8.9 X10*3/uL (2.0-8.3); Neutrophils Percent Auto 85.6 % (45-73); Platelet Count 319 X10*3/uL (160-400); Red Blood Count 3.67 X10*6/uL (4.20-5.50); Red Cell Distribution Width 12.8 % (11.0-16.0); White Blood Count 10.3 X10*3/uL (4.8-10.8)
[2021-01-01 07:17] LABS: Anion Gap 10 (12-20); Blood Urea Nitrogen 15 mg/dL (9-16); Calcium 8.8 mg/dL (8.4-10.2); Carbon Dioxide 26 mmol/L (22-29); Chloride 105 mmol/L (96-108); Creatinine Clr Calc Pharmacy 59.1; Estimated Glomerular Filt Rate > 60; Glucose Random 140 mg/dL (60-115); Potassium 4.3 mmol/L (3.3-5.1); Sodium 137 mmol/L (135-145)
--- NOTE | 2021-01-01 07:31 | P.CONGS_ITS ---
History of Present Illness Consult details Consult date: 01/01/21 Narrative: 65 year old female patient presenting with complaints of abdominal pain 01/05 starting yesterday, mainly located in the right lower quadrant extending into the back and right upper abdomen. Pain is associated with nausea and vomiting. The pain has now improved but the nausea/vomiting persists. She recently underwent a colonoscopy last week which revealed diverticulosis. She denies any bleeding by rectum. She presented to the ED and her WBC was noted to be mildly elevated, normal lactate. CT of the abdomen revealed an area of colitis in the splenic flexure, perhaps ischemic colitis as this is a watershed area of vascularity. Patient a prior history of perforated sigmoid diverticulitis status post sigmoid resection with diverting ileostomy. She subsequently returned for closure of ileostomy approximately 3 years ago. She was fine until current episode of abdominal pain began. Review of Systems Review of Systems: Yes all other systems are reviewed and are negative Constitutional: Constitutional: Reports anorexia, Reports fatigue, Denies fever(s) and Reports malaise ENT: Denies sore throat and Denies throat swelling Cardiovascular: Cardiovascular: Denies chest pain, Denies rapid heart rate, Denies irregular heart rhythm and Denies dyspnea Respiratory: Respiratory: Denies chest congestion, Denies cough, Denies dyspn ea and Denies wheezing Gastrointestinal: Gastrointestinal: Reports as per HPI, Reports abdominal pain, Denies hematochezia, Reports constipation, Reports nausea, Reports vomiting and Denies hematemesis Genitourinary: Genitourinary: Reports no additional female genitourinary complaints Musculoskeletal: Musculoskeletal: Reports back pain Psychiatric: Psychiatric: Reports anxiety Endocrine: Endocrine: Reports fatigue Allergic/Immunologic: Allergic/Immunologic: Denies throat swelling and Denies wheezing PMFSH Past Medical History Medical History Anxiety COVID-19 vaccine series completed Hypovitaminosis D Low TSH level Mild recurrent major depression Multinodular goiter Muscle ache Tachycardia Family History Family History Father Colon cancer Mother Breast cancer Brother Brain cancer Paternal Uncle Lung cancer Sister Breast cancer Substance use disorder Surgical History Surgical History H/O colonoscopy History of ankle surgery History of appendectomy History of ileostomy History of reversal of ileostomy History of tonsillectomy Social History Social History Housing: House Are you a primary critical care rn to a significant other at home: No Do you presently have visiting nurse or other home services: No Patient Tobacco Use Status: Never used Tobacco e-Cigarette/Vaping Use: Never Used Second Hand Smoke Exposure: No Use of substances other than those prescribed or required for medical reasons: No Advance Directives: No Advance Directives Information Provided: No service: No Current occupational status: unemployed Meds Allergies Allergy/AdvReac Type Severity Reaction Status Date / Time hydrocodone [From VICODIN] AdvReac Intermediate VOMMITING,DIZZY, Verified 12/25/20 10:23 NAUSEA tramadol [TRAMADOL] AdvReac Intermediate NAUSEA & Verified 12/25/20 10:23 VOMITING oxycodone [From Percocet] AdvReac Mild Formication Verified 12/25/20 10:23 Active Medications: Current Medications Acetaminophen (Acetaminophen 325 Mg Tablet) 650 mg PO Q6H PRN PRN Reason: Pain, Mild (Pain Scale 1-3) Enoxaparin Sodium (Enoxaparin Sodium 40 Mg/0.4 Ml Syringe) 40 mg SUBCUT Q24H COUNT INCLUDES THE [facility] Last Admin: 01/01/21 04:39 Dose: Not Given Documented by: Escitalopram Oxalate (Escitalopram Oxalate 10 Mg Tablet) 10 mg PO BEDTIME COUNT INCLUDES THE [facility] Fluticasone Propionate (Fluticasone Propionate Nasal 16 Gm [place]) 1 spray NOSTRIL-B DAILY COUNT INCLUDES THE [facility] Metronidazole (Flagyl) 500 mg in 100 mls @ 100 mls/hr IV Q8H COUNT INCLUDES THE [facility] Lactated Ringer's (Lr) 1,000 mls @ 80 mls/hr IVCONT .[id number] COUNT INCLUDES THE [facility] Last Admin: 01/01/21 02:21 Dose: 80 mls/hr Documented by: Levofloxacin (Levaquin) 750 mg in 150 mls @ 100 mls/hr IV Q48H COUNT INCLUDES THE [facility] Morphine Sulfate (Morphine Sulfate 4 Mg/Ml Cartridge) 4 mg IVPUSH Q4H PRN; Protocol PRN Reason: Pain, Severe (Pain Scale 7-10) Ondansetron HCl (Ondansetron Hcl 4 Mg/2 Ml Vial) 4 mg IVPUSH Q8H PRN PRN Reason: Nausea and Vomiting Vitamin D (Cholecalciferol (Vitamin D3) 25 Mcg Tablet) 50 mcg PO DAILY LEI Physical Exam Vital Signs: Vital Signs: Last Vital Signs Temp 97.8 F 01/01/21 01:26 Pulse 71 01/01/21 04:00 Resp 15 01/01/21 04:00 BP 141/89 H 01/01/21 04:00 Pulse Ox 96 01/01/21 04:00 Body Mass Index 23.8 Const: General: cooperative, well developed and in distress Nutritional Appearance: well nourished Orientation/consciousness: patient oriented x3 Limitations: no limitations HENMT: Head: Yes normocephalic and Yes atraumatic Neck: Neck: Yes no lymphadenopathy and Yes no JVD Resp: Effort & Inspection: normal respiratory effort, no cough, not labored and no stridor Cardio: Jugular venous distension: no JVD Rate: regular rate Rhythm: regular rhythm GI: Palpation (GI): Soft to palpation, Tenderness to palpation present (GI) in the RLQ and in the RUQ; Negative for with no rebound tenderness, no guarding and hepatosplenomegaly present Percussion: Yes normal to percussion Auscultation: normal bowel sounds Rectal Exam - Female: deferred Skin: General skin exam: no rashes or lesions noted Neuro: General: patient oriented x3 Extrem: General: Yes no clubbing, cyanosis or edema Results Labs Result diagrams: 01/01/21 06:56 01/01/21 06:56 Labs: Abnormal lab results 12/31/20 12/31/20 01/01/21 Range/Units 20:52 20:52 06:56 WBC 12.3 H (4.8-10.8) X10*3/uL RBC 3.67 L (4.20-5.50) X10*6/uL Hgb 11.1 L (12.0-16.0) g/dl Hct 33.2 L (37-47) % MPV 9.3 L (9.4-12.3) fL Immature Gran % (Auto) 0.5 H (0.0-0.4) % Neut % (Auto) 77.1 H 85.6 H (45-73) % Lymph % (Auto) 15.6 L 9.1 L (20-40) % Lymph # (Auto) 0.9 L (1.2-4.9) X10*3/uL Abs Immat Gran (auto) 0.04 H 0.05 H (0.00-0.03) X10*3/uL Absolute Neuts (auto) 9.5 H 8.9 H (2.0-8.3) X10*3/uL Anion Gap (12-20) BUN 22 H D (9-16) mg/dL Random Glucose (60-115) mg/dL 01/01/21 Range/Units 06:56 WBC (4.8-10.8) X10*3/uL RBC (4.20-5.50) X10*6/uL Hgb (12.0-16.0) g/dl Hct (37-47) % MPV (9.4-12.3) fL Immature Gran % (Auto) (0.0-0.4) % Neut % (Auto) (45-73) % Lymph % (Auto) (20-40) % Lymph # (Auto) (1.2-4.9) X10*3/uL Abs Immat Gran (auto) (0.00-0.03) X10*3/uL Absolute Neuts (auto) (2.0-8.3) X10*3/uL Anion Gap 10 L (12-20) BUN (9-16) mg/dL Random Glucose 140 H (60-115) mg/dL Short CBC 12/31/20 01/01/21 Range/Units 20:52 06:56 WBC 12.3 H 10.3 (4.8-10.8) X10*3/uL Hgb 12.9 11.1 L (12.0-16.0) g/dl Hct 38.4 33.2 L (37-47) % Plt Count 377 319 (160-400) X10*3/uL BMP 12/31/20 01/01/21 20:52 06:56 Sodium 142 137 Potassium 4.0 4.3 Chloride 105 105 Carbon Dioxide 26 26 BUN 22 H D 15 Creatinine 1.20 0.75 Calcium 10.0 8.8 D Liver Function 12/31/20 Range/Units 20:52 Total Bilirubin 0.3 (0.0-1.0) mg/dL AST 12 (5-31) U/L ALT 23 (0-31) U/L Alkaline Phosphatase 77 (39-117) U/L Albumin 4.5 (3.5-5.0) g/dL All other labs normal. Imaging Abdomen CT scan report/results: image reviewed Assessment and Plan (1) Colitis: Status: Acute 65-year-old presenting with complaints of abdominal pain in the lower abdomen mainly on the right side associated with nausea and vomiting. Patient had a prior history of perforated diverticulitis and previously underwent a sigmoid resection with diverting ileostomy. Workup revealed a mildly elevated WBC as well as evidence of colitis in the splenic flexure possibly due to ischemic colitis. There is no evidence of free air or or fluid collections to suggest underlying abscess. Recommend supportive care including fluid hydration and IV antibiotics. Will follow along during her hospitalization. Procedures Date of Service Date of Service: 01/01/21
[2021-01-01] MEDS: ondansetron HCL 4 MG/2 ML VIAL IVPUSH ×2 (07:56→22:12)
--- NOTE | 2021-01-01 08:05 | PC.NURSE ---
received pt a/c x 3, c/o n/v. medicated for same, will recheck in 20 minutes or so. pt is no other distress.
[2021-01-01] MEDS: Cholecalciferol (Vitamin D3) 25 MCG TABLET 50 MCG PO (11:09)
[2021-01-01] MEDS: Fluticasone Propionate Nasal 16 GM SPRAY 1 SPRAY NOSTRIL-B (11:14)
--- NOTE | 2021-01-01 14:31 | P.PNIM_ITS ---
Subjective Subjective Date of Service: 01/01/21 Interval History: colitis Review of Systems Still has abdominal pain and, as constipation. says abdominal pain seems to be somewhat improving, did not pass the bowels yet. Denies any fever or chills or nausea or vomiting this morning. Physical Exam Vital Signs: Vital Signs: Last Vital Signs Temp 97.8 F 01/01/21 01:26 Pulse 66 01/01/21 11:20 Resp 16 01/01/21 11:20 BP 131/90 H 01/01/21 11:20 Pulse Ox 97 01/01/21 11:20 Body Mass Index 23.8 Physical exam: Appearance: Ax3.? not in distress.? Eyes: Pupils equal, round and reactive to light.? Sclera nonicteric.? ENT: Pharynx normal.? Moist mucous membranes. cvs: rrr, [id number] , no murmur res: clear to auscultation ,no rhonchii or wheezing abd: no rebound or guarding, left sided abd pain, bs present. ext pulses present , no cyanosis ,Gait well balanced well coordinated. neuro: axo3 , nonfocal. Objective Data Active Medications Acetaminophen (Acetaminophen 325 Mg Tablet) 650 mg PO Q6H PRN PRN Reason: Pain, Mild (Pain Scale 1-3) Enoxaparin Sodium (Enoxaparin Sodium 40 Mg/0.4 Ml Syringe) 40 mg SUBCUT Q24H [facility] Last Admin: 01/01/21 04:39 Dose: Not Given Documented by: AKOSUA Non-Admin Reason: Patient Asleep Escitalopram Oxalate (Escitalopram Oxalate 10 Mg Tablet) 10 mg PO BEDTIME [facility] Fluticasone Propionate (Fluticasone Propionate Nasal 16 Gm [place]) 1 spray NOSTRIL-B DAILY [facility] Last Admin: 01/01/21 11:14 Dose: 1 spray Documented by: JAROD Metronidazole (Flagyl) 500 mg in 100 mls @ 100 mls/hr IV Q8H [facility] Last Admin: 01/01/21 13:35 Dose: 100 mls/hr Documented by: JAROD Lactated Ringer's (Lr) 1,000 mls @ 80 mls/hr IVCONT .[id number] [facility] Last Admin: 01/01/21 02:21 Dose: 80 mls/hr Documented by: HO.[email or web address] Levofloxacin (Levaquin) 750 mg in 150 mls @ 100 mls/hr IV Q48H [facility] Morphine Sulfate (Morphine Sulfate 4 Mg/Ml Cartridge) 4 mg IVPUSH Q4H PRN; Protocol PRN Reason: Pain, Severe (Pain Scale 7-10) Ondansetron HCl (Ondansetron Hcl 4 Mg/2 Ml Vial) 4 mg IVPUSH Q8H PRN PRN Reason: Nausea and Vomiting Last Admin: 01/01/21 07:56 Dose: 4 mg Documented by: GILBERT Vitamin D (Cholecalciferol (Vitamin D3) 25 Mcg Tablet) 50 mcg PO DAILY LEI Last Admin: 01/01/21 11:09 Dose: 50 mcg Documented by: JAROD Labs CBC & Chem 7: 01/01/21 06:56 01/01/21 06:56 Labs: Laboratory Results - last 24 hr 12/31/20 12/31/20 12/31/20 20:52 20:52 20:52 MCV 90.6 MCH 30.4 MCHC 33.6 RDW 12.9 Plt Count 377 MPV 9.3 L Immature Gran % (Auto) 0.3 Neut % (Auto) 77.1 H Lymph % (Auto) 15.6 L [place] % (Auto) 4.2 Eos % (Auto) 2.6 Baso % (Auto) 0.2 Lymph # (Auto) 1.9 [place] # (Auto) 0.5 Eos # (Auto) 0.3 Baso # (Auto) 0.0 Abs Immat Gran (auto) 0.04 H Absolute Neuts (auto) 9.5 H Absolute Nucleated RBC 0.000 Nucleated RBC % (auto) 0.0 Anion Gap 15 Estim Creat Clear Calc 36.9 Estimated GFR 45 Random Glucose 115 Lactic Acid 1.1 Calcium 10.0 Total Bilirubin 0.3 AST 12 ALT 23 Alkaline Phosphatase 77 Total Protein 6.9 Albumin 4.5 Lipase 61 COVID-19 (ONI) COVID-19 Clin Com 12/31/20 01/01/21 01/01/21 20:52 06:56 06:56 MCV 90.5 MCH 30.2 MCHC 33.4 RDW 12.8 Plt Count 319 MPV 9.4 Immature Gran % (Auto) 0.5 H Neut % (Auto) 85.6 H Lymph % (Auto) 9.1 L [place] % (Auto) 4.4 Eos % (Auto) 0.2 Baso % (Auto) 0.2 Lymph # (Auto) 0.9 L [place] # (Auto) 0.5 Eos # (Auto) 0.0 Baso # (Auto) 0.0 Abs Immat Gran (auto) 0.05 H Absolute Neuts (auto) 8.9 H Absolute Nucleated RBC 0.000 Nucleated RBC % (auto) 0.0 Anion Gap 10 L Estim Creat Clear Calc 59.1 Estimated GFR > 60 Random Glucose 140 H Lactic Acid Calcium 8.8 D Total Bilirubin AST ALT Alkaline Phosphatase Total Protein Albumin Lipase COVID-19 (ONI) Negative COVID-19 Clin Com See Note Assessment and Plan (1) Colitis: Status: Acute (2) Abdominal pain: Status: Acute Assessment and Plan: 65-year-old female with past medical history significant for depression anxiety? presents to the hospital with abdominal pain 1. abdominal pain- secondary to colitis, ischemic versus infectious patient has leukocytosis with no fever, no tachycardia or tachypnea normal lactic acid,has no history of arrhythmia continue on IV antibiotic--Levaquin and Flagyl - follow-up culture - general surgery [id number] IV antibiotics and hydration. 2.colitis - ischemic versus infectious versus post colonoscopy - findings as above on CT scan of the abdomen - will start her on antibiotics - follow culture 3. depression anxiety - continue home medication Quality Stroke Does the patient have a stroke diagnosis?: No VTE Prior VTE?: No VTE Risk Level:: Medical - moderate - high VTE Device Contraindication: Treatment Not Indicated VTE Drug Contraindication: N/A - Med Ordered
--- NOTE | 2021-01-01 14:41 | MHC.CM.PN ---
Met with patient in regards to discharge planning. Patient lives with her sig other, ambulates independently, and had no services prior to coming to the hospital. PCP verifid. Copy of HCP verified to be on file. IMM explained and signed. Patient received Pf[employer] on 07/01 and 07/22. Patient's sig other will transport her home when medically stable. Continue to monitor for d/c needs.
--- NOTE | 2021-01-01 16:52 | PC.NURSE ---
REPORT GIVEN TO LIANG WHITESIDE
[2021-01-01] MEDS: Acetaminophen 325 MG TABLET 650 MG PO (18:21)
[2021-01-01] MEDS: Omeprazole 20 MG CAPSULE.DR PO (18:21)
[2021-01-01] MEDS: Escitalopram Oxalate 10 MG TABLET PO (20:08)
[2021-01-01] MEDS: Docusate Sodium 100 MG CAPSULE PO (20:08)
[2021-01-01] MEDS: bisacodyL 10 MG SUPP.RECT PR (20:09)
[2021-01-02] VITALS (7 sets, daily range): BP systolic 118–144; BP diastolic 66–81; PULSE 67–72; RESP 14–20; TEMP 36.6–37.1; O2SAT 94–96
[2021-01-02] MEDS: Enoxaparin Sodium 40 MG/0.4 ML SYRINGE SUBCUT (03:12)
[2021-01-02] MEDS: metroNIDAZOLE/NS 500 MG/100 ML PIGGYBACK 100 MG IV ×3 (05:12→23:18)
[2021-01-02] MEDS: ondansetron HCL 4 MG/2 ML VIAL IVPUSH ×2 (09:14→17:42)
[2021-01-02] MEDS: Lactated Ringers 1,000 ML 80 ML IVCONT (10:04)
--- NOTE | 2021-01-02 11:33 | HO.PM.IMPN ---
Subjective Subjective Date of Service: 01/02/21 Interval History: colitis Review of Systems Still has abdominal pain, significant nausea, could not able to tolerate diet. No vomiting or diarrhea Past 1 BM last night and 1 this morning. Otherwise looks somewhat better than yesterday. Physical Exam Vital Signs: Vital Signs: Last Vital Signs Temp 97.8 F 01/02/21 08:00 Pulse 70 01/02/21 08:00 Resp 18 01/02/21 08:00 BP 138/73 01/02/21 08:00 Pulse Ox 94 01/02/21 08:00 Body Mass Index 23.8 Appearance: Ax3.? not in distress.? Eyes: Pupils equal, round and reactive to light.? Sclera nonicteric.? ENT: Pharynx normal.? Moist mucous membranes. cvs: rrr, [id number] , no murmur res: clear to auscultation ,no rhonchii or wheezing abd: no rebound or guarding, left sided abd pain, bs present. ext pulses present , no cyanosis ,Gait well balanced well coordinated. neuro: axo3 , nonfocal. Objective Data Active Medications Acetaminophen (Acetaminophen 325 Mg Tablet) 650 mg PO Q6H PRN PRN Reason: Pain, Mild (Pain Scale 1-3) Last Admin: 01/01/21 18:21 Dose: 650 mg Documented by: NINFA Bisacodyl (Bisacodyl 10 Mg Supp.Rect) 10 mg [place] BEDTIME [facility] Last Admin: 01/01/21 20:09 Dose: 10 mg Documented by: NINFA Docusate Sodium (Docusate Sodium 100 Mg Capsule) 100 mg PO BID [facility] Last Admin: 01/02/21 09:10 Dose: Not Given Documented by: HUNTER-ASKEP Non-Admin Reason: Patient Refused Enoxaparin Sodium (Enoxaparin Sodium 40 Mg/0.4 Ml Syringe) 40 mg SUBCUT Q24H [facility] Last Admin: 01/02/21 03:12 Dose: 40 mg Documented by: MELI Escitalopram Oxalate (Escitalopram Oxalate 10 Mg Tablet) 10 mg PO BEDTIME [facility] Last Admin: 01/01/21 20:08 Dose: 10 mg Documented by: NINFA Fluticasone Propionate (Fluticasone Propionate Nasal 16 Gm [place]) 1 spray NOSTRIL-B DAILY [facility] Last Admin: 01/02/21 09:10 Dose: Not Given Documented by: CORA Non-Admin Reason: Patient Refused Metronidazole (Flagyl) 500 mg in 100 mls @ 100 mls/hr IV Q8H [facility] Last Infusion: 01/02/21 06:26 Dose: 0 mls/hr Documented by: MELI Lactated Ringer's (Lr) 1,000 mls @ 80 mls/hr IVCONT .[id number] [facility] Last Admin: 01/02/21 10:04 Dose: 80 mls/hr Documented by: GRIFFIN Levofloxacin (Levaquin) 750 mg in 150 mls @ 100 mls/hr IV Q48H [facility] Ketorolac Tromethamine (Ketorolac Tromethamine 15 Mg/Ml Vial) 15 mg IVPUSH Q6H PRN PRN Reason: abd pain Omeprazole (Omeprazole 20 Mg Capsule.Dr) 20 mg PO DAILY@0630 [facility] Last Admin: 01/02/21 05:12 Dose: Not Given Documented by: MELI Non-Admin Reason: Patient Refused Ondansetron HCl (Ondansetron Hcl 4 Mg/2 Ml Vial) 4 mg IVPUSH Q8H PRN PRN Reason: Nausea and Vomiting Last Admin: 01/02/21 09:14 Dose: 4 mg Documented by: CORA Senna (Sennosides 8.6 Mg Tablet) 17.2 mg PO DAILY [facility] Last Admin: 01/02/21 09:11 Dose: Not Given Documented by: CORA Non-Admin Reason: Patient Refused Vitamin D (Cholecalciferol (Vitamin D3) 25 Mcg Tablet) 50 mcg PO DAILY [facility] Last Admin: 01/02/21 09:10 Dose: Not Given Documented by: CORA Non-Admin Reason: Patient Refused Labs CBC & Chem 7: 01/01/21 06:56 01/01/21 06:56 Microbiology Microbiology Results: Microbiology 12/31/20 21:03 Blood Culture - Preliminary Blood - Venous No growth after 24 hours. 12/31/20 20:52 Blood Culture - Preliminary Blood - Venous No growth after 24 hours. Assessment and Plan (1) Colitis: Status: Acute Assessment and Plan: 65-year-old female with past medical history significant for depression anxiety? presents to the hospital with abdominal pain 1. abdominal pain- secondary to colitis, ischemic versus infectious patient has leukocytosis with no fever, no tachycardia or tachypnea ?normal lactic acid,has no history of arrhythmia continue? on IV antibiotic--Levaquin and Flagyl - follow-up culture - general surgery [id number] IV antibiotics and hydration.? 2.colitis - ischemic versus infectious versus post colonoscopy - findings as above on CT scan of the abdomen - will start her on antibiotics - follow culture 3. depression anxiety - continue home medication Quality Stroke Does the patient have a stroke diagnosis?: No VTE Prior VTE?: No VTE Risk Level:: Medical - moderate - high VTE Device Contraindication: Treatment Not Indicated VTE Drug Contraindication: N/A - Med Ordered
--- NOTE | 2021-01-02 14:51 | P.PNGS_ITS ---
Subjective Subjective Date of Service: 01/02/21 <Aislinn Shah PA-C - Last Filed: 01/02/21 14:55> 01/02/21 <Ki Garcia MD - Last Filed: 01/02/21 16:21> Interval history: Feels a little better today. Her nausea is persistent, abdominal pain better. Passing flatus and had hard stool yesterday and this morning. <Aislinn Shah PA-C - Last Filed: 01/02/21 14:55> Physical Exam Vital Signs: Vital Signs: Last Vital Signs Temp 98.4 F 01/02/21 11:46 Pulse 67 01/02/21 11:46 Resp 18 01/02/21 11:46 BP 141/80 H 01/02/21 11:46 Pulse Ox 95 01/02/21 11:46 Body Mass Index 23.8 <Aislinn Shah PA-C - Last Filed: 01/02/21 14:55> Const: General: comfortable, no acute distress and alert <Aislinn Shah PA-C - Last Filed: 01/02/21 14:55> Orientation/consciousness: patient oriented x3 <Aislinn Shah PA-C - Last Filed: 01/02/21 14:55> Eyes: Sclerae: sclerae normal <BO Darling Last Filed: 01/02/21 14:55> Resp: Effort & Inspection: normal respiratory effort <Aislinn Shah PA-C - Last Filed: 01/02/21 14:55> GI: Inspection: No distended and Yes scar (midline, right midabdomen, well healed) <Aislinn Shah PA-C - Last Filed: 01/02/21 14:55> Palpation (GI): Soft to palpation, Tenderness to palpation present (GI) in the LUQ, no guarding and not rigid <BO Darling Last Filed: 01/02/21 14:55> Percussion: Yes normal to percussion <BO Darling Last Filed: 01/02/21 14:55> Skin: General skin exam: no rashes or lesions noted <Aislinn Shah PA-C - Last Filed: 01/02/21 14:55> Neuro: General: patient oriented x3 <Aislinn Shah PA-C - Last Filed: 01/02/21 14:55> Procedures Date of Service Date of Service: 01/02/21 <Aislinn Shah PA-C - Last Filed: 01/02/21 14:55> Progress Note: A&P Assessment and plan (1) Colitis: Status: Acute <Aislinn Shah PA-C - Last Filed: 01/02/21 14:55> Assessment and Plan: 65-year-old presenting with complaints of abdominal pain in the lower abdomen mainly on the right side associated with nausea and vomiting.? Workup revealed a mildly elevated WBC as well as evidence of colitis in the splenic flexure possibly due to ischemic colitis.?She is improving symptomatically. Recommend continuing supportive care including fluid hydration and IV antibiotics.?Phenergan added for nausea. Colonoscopy 12/25/20 with White- normal with the exception of scattered diverticulosis, hemorrhoids. <Aislinn Shah PA-C - Last Filed: 01/02/21 14:55> 65-year-old presenting with complaints of abdominal pain in the lower abdomen mainly on the right side associated with nausea and vomiting.? Workup revealed a mildly elevated WBC as well as evidence of colitis in the splenic flexure possibly due to ischemic colitis.?She is improving symptomatically. Recommend continuing supportive care including fluid hydration and IV antibiotics.?Phenergan added for nausea. Colonoscopy 12/25/20 with White- normal with the exception of scattered diverticulosis, hemorrhoids. As noted above the patient does feel improved today although still has some nausea. The abdominal pain comes in waves and remains in the lower abdomen. She has moved a hard bowel movement. Examination of the abdomen reveals no tenderness in the left upper quadrant to indicate ischemic colitis. Abdomen is generally soft and nondistended. No tympany to percussion. Agree with the above assessment and plan. No surgical intervention recommended at this time. <Ki Garcia MD - Last Filed: 01/02/21 16:21> Fall Risk Details Current Medications: Current Medications Acetaminophen (Acetaminophen 325 Mg Tablet) 650 mg PO Q6H PRN PRN Reason: Pain, Mild (Pain Scale 1-3) Last Admin: 01/01/21 18:21 Dose: 650 mg Documented by: Bisacodyl (Bisacodyl 10 Mg Supp.Rect) 10 mg [place] BEDTIME [facility] Last Admin: 01/01/21 20:09 Dose: 10 mg Documented by: Docusate Sodium (Docusate Sodium 100 Mg Capsule) 100 mg PO BID [facility] Last Admin: 01/02/21 09:10 Dose: Not Given Documented by: Enoxaparin Sodium (Enoxaparin Sodium 40 Mg/0.4 Ml Syringe) 40 mg SUBCUT Q24H [facility] Last Admin: 01/02/21 03:12 Dose: 40 mg Documented by: Escitalopram Oxalate (Escitalopram Oxalate 10 Mg Tablet) 10 mg PO BEDTIME [facility] Last Admin: 01/01/21 20:08 Dose: 10 mg Documented by: Fluticasone Propionate (Fluticasone Propionate Nasal 16 Gm [place]) 1 spray NOSTRIL-B DAILY [facility] Last Admin: 01/02/21 09:10 Dose: Not Given Documented by: Metronidazole (Flagyl) 500 mg in 100 mls @ 100 mls/hr IV Q8H [facility] Last Admin: 01/02/21 14:14 Dose: 100 mls/hr Documented by: Lactated Ringer's (Lr) 1,000 mls @ 80 mls/hr IVCONT .[id number] [facility] Last Admin: 01/02/21 10:04 Dose: 80 mls/hr Documented by: Levofloxacin (Levaquin) 750 mg in 150 mls @ 100 mls/hr IV Q48H [facility] Ketorolac Tromethamine (Ketorolac Tromethamine 15 Mg/Ml Vial) 15 mg IVPUSH Q6H PRN PRN Reason: abd pain Omeprazole (Omeprazole 20 Mg Capsule.Dr) 20 mg PO DAILY@0630 [facility] Last Admin: 01/02/21 05:12 Dose: Not Given Documented by: Ondansetron HCl (Ondansetron Hcl 4 Mg/2 Ml Vial) 4 mg IVPUSH Q8H PRN PRN Reason: Nausea and Vomiting Last Admin: 01/02/21 09:14 Dose: 4 mg Documented by: Senna (Sennosides 8.6 Mg Tablet) 17.2 mg PO DAILY [facility] Last Admin: 01/02/21 09:11 Dose: Not Given Documented by: Vitamin D (Cholecalciferol (Vitamin D3) 25 Mcg Tablet) 50 mcg PO DAILY [facility] Last Admin: 01/02/21 09:10 Dose: Not Given Documented by: <Aislinn Shah PA-C - Last Filed: 01/02/21 14:55> Time Spent With Patient Time: Total time spent is greater than 50% in coordination of care (as documented) at patient's floor/unit and/or counseling patient: <Aislinn Shah PA-C - Last Filed: 01/02/21 14:55> Time with patient: 15 - 24 minutes <Aislinn Shah PA-C - Last Filed: 01/02/21 14:55> Quality Stroke Does the patient have a stroke diagnosis?: No <Aislinn Shah PA-C - Last Filed: 01/02/21 14:55> VTE Prior VTE?: No <Aislinn Shah PA-C - Last Filed: 01/02/21 14:55> VTE Risk Level:: Medical - moderate - high <Aislinn Shah PA-C - Last Filed: 01/02/21 14:55> VTE Device Contraindication: Treatment Not Indicated <Aislinn Shah PA-C - Last Filed: 01/02/21 14:55> VTE Drug Contraindication: N/A - Med Ordered <Aislinn Shah PA-C - Last Filed: 01/02/21 14:55>
[2021-01-02] MEDS: Prochlorperazine Edisylate 10 MG/2 ML VIAL 5 MG IVPUSH (20:49)
[2021-01-02] MEDS: levoFLOXacin/D5W 750 MG/150 ML PIGGYBACK 100 MG IV (21:48)
--- NOTE | 2021-01-02 22:29 | PC.NURSE ---
Patient's son called for update, unable to answer at the time of call. Pt's son was told this RN would call back. Pt aware son wanted a call back. Pt talked to him on the phone and made him aware that this RN was busy at the time and would call soon. Pt continued to call prop making supervisor and hospitalist. This RN called son back twice with no answer, able to reach him on the third try. Son concerned about pt being on Lexapro because pt told him she believes that is making her sick. Explained to son that she can refuse the medication no problem, also educated pt that she can refuse. All questions answered, son is updated.
[2021-01-02] MEDS: Acetaminophen 325 MG TABLET 650 MG PO (23:23)
[2021-01-03] VITALS (7 sets, daily range): BP systolic 124–157; BP diastolic 65–83; PULSE 68–127; RESP 18–19; TEMP 36.6–37.2; O2SAT 94–98
[2021-01-03] MEDS: Enoxaparin Sodium 40 MG/0.4 ML SYRINGE SUBCUT (03:06)
[2021-01-03] MEDS: ondansetron HCL 4 MG/2 ML VIAL IVPUSH (03:10)
[2021-01-03] MEDS: Lactated Ringers 1,000 ML 80 ML IVCONT ×2 (04:13→16:43)
--- NOTE | 2021-01-03 04:40 | PC.NURSE ---
Addendum entered by Eliane Siegel RN 01/03/21 05:05: Pt stated she feels as if she is going to pass out. Pt still awake and alert but vomiting. Dr. Carvajal notified. Original Note: Pt noted to convert into Afib for about 30 seconds, HR reaching 150s, then converted back into sinus. Pt assessed, asymptomatic. Still c/o nausea and some vomiting. Zofran given about 1 hour ago. Will continue to monitor.
[2021-01-03] MEDS: Prochlorperazine Edisylate 10 MG/2 ML VIAL 5 MG IVPUSH ×3 (05:20→15:27)
[2021-01-03] MEDS: metroNIDAZOLE/NS 500 MG/100 ML PIGGYBACK 100 MG IV (05:22)
--- NOTE | 2021-01-03 07:42 | PM.PNGS ---
Subjective Subjective Date of Service: 01/03/21 Interval history: Still reports nausea but abdominal pain is much improved. No further BM overnight. Passing flatus frequently. She feels increased nausea after antibiotic dose. Physical Exam Vital Signs: Vital Signs: Last Vital Signs Temp 97.8 F 01/03/21 05:14 Pulse 77 01/03/21 05:14 Resp 18 01/03/21 05:14 BP 157/83 H 01/03/21 05:14 Pulse Ox 96 01/03/21 05:14 Body Mass Index 23.8 Const: General: no acute distress Nutritional Appearance: well nourished Orientation/consciousness: patient oriented x3 Limitations: no limitations HENMT: Head: Yes normocephalic Resp: Effort & Inspection: normal respiratory effort, no cough and not labored GI: Palpation (GI): Soft to palpation, nontender, no guarding, not rigid and hepatosplenomegaly present Percussion: Yes normal to percussion Auscultation: normal bowel sounds Neuro: General: patient oriented x3 Extrem: General: Yes no pedal edema Procedures Date of Service Date of Service: 01/03/21 Progress Note: A&P Assessment and plan (1) Colitis: Status: Acute Assessment and Plan: Over patient is improved with minimal abdominal pain. Major symptom remains the nausea, possibly aggravated by the antibiotics. As abdominal exam is now benign, suggest stopping antibiotics. If no improvement in nausea, may need GI consultation. Fall Risk Details Current Medications: Current Medications Acetaminophen (Acetaminophen 325 Mg Tablet) 650 mg PO Q6H PRN PRN Reason: Pain, Mild (Pain Scale 1-3) Last Admin: 01/02/21 23:23 Dose: 650 mg Documented by: Bisacodyl (Bisacodyl 10 Mg Supp.Rect) 10 mg [place] BEDTIME [facility] Last Admin: 01/02/21 20:34 Dose: Not Given Documented by: Docusate Sodium (Docusate Sodium 100 Mg Capsule) 100 mg PO BID [facility] Last Admin: 01/02/21 20:35 Dose: Not Given Documented by: Enoxaparin Sodium (Enoxaparin Sodium 40 Mg/0.4 Ml Syringe) 40 mg SUBCUT Q24H [facility] Last Admin: 01/03/21 03:06 Dose: 40 mg Documented by: Escitalopram Oxalate (Escitalopram Oxalate 10 Mg Tablet) 10 mg PO BEDTIME [facility] Last Admin: 01/02/21 20:35 Dose: Not Given Documented by: Fluticasone Propionate (Fluticasone Propionate Nasal 16 Gm [place]) 1 spray NOSTRIL-B DAILY [facility] Last Admin: 01/02/21 09:10 Dose: Not Given Documented by: Metronidazole (Flagyl) 500 mg in 100 mls @ 100 mls/hr IV Q8H [facility] Last Infusion: 01/03/21 06:22 Dose: Infused Documented by: Lactated Ringer's (Lr) 1,000 mls @ 80 mls/hr IVCONT .[id number] [facility] Last Admin: 01/03/21 04:13 Dose: 80 mls/hr Documented by: Levofloxacin (Levaquin) 750 mg in 150 mls @ 100 mls/hr IV Q48H [facility] Last Infusion: 01/02/21 23:25 Dose: Infused Documented by: Ketorolac Tromethamine (Ketorolac Tromethamine 15 Mg/Ml Vial) 15 mg IVPUSH Q6H PRN PRN Reason: abd pain Omeprazole (Omeprazole 20 Mg Capsule.Dr) 20 mg PO DAILY@0630 [facility] Last Admin: 01/03/21 06:25 Dose: Not Given Documented by: Prochlorperazine Edisylate (Prochlorperazine Edisylate 10 Mg/2 Ml Vial) 5 mg IVPUSH Q6H PRN PRN Reason: Nausea and Vomiting Last Admin: 01/03/21 05:20 Dose: 5 mg Documented by: Senna (Sennosides 8.6 Mg Tablet) 17.2 mg PO DAILY [facility] Last Admin: 01/02/21 09:11 Dose: Not Given Documented by: Vitamin D (Cholecalciferol (Vitamin D3) 25 Mcg Tablet) 50 mcg PO DAILY [facility] Last Admin: 01/02/21 09:10 Dose: Not Given Documented by: Time Spent With Patient Time: Total time spent is greater than 50% in coordination of care (as documented) at patient's floor/unit and/or counseling patient: Time with patient: 15 - 24 minutes Quality Stroke Does the patient have a stroke diagnosis?: No VTE Prior VTE?: No VTE Risk Level:: Medical - moderate - high VTE Device Contraindication: Treatment Not Indicated VTE Drug Contraindication: N/A - Med Ordered
[2021-01-03] MEDS: Cholecalciferol (Vitamin D3) 25 MCG TABLET 50 MCG PO (09:16)
--- NOTE | 2021-01-03 11:01 | HO.PM.IMPN ---
Subjective Subjective Date of Service: 01/03/21 Interval History: nausea , poor appetite Review of Systems Abdominal pain seems to be improving but still significantly nauseous could not able to tolerate food Denies any chest pain or shortness of breath or weakness numbness. Physical Exam Vital Signs: Vital Signs: Last Vital Signs Temp 98.5 F 01/03/21 08:00 Pulse 68 01/03/21 08:00 Resp 18 01/03/21 08:00 BP 124/72 01/03/21 08:00 Pulse Ox 94 01/03/21 08:00 Body Mass Index 23.8 Appearance: Ax3.? not in distress.? Eyes: Pupils equal, round and reactive to light.? Sclera nonicteric.? ENT: Pharynx normal.? Moist mucous membranes. cvs: rrr, [id number] , no murmur res: clear to auscultation ,no rhonchii or wheezing abd: no rebound or guarding, left sided abd pain seems improving, bs present. ext pulses present , no cyanosis ,Gait well balanced well coordinated. neuro: axo3 , nonfocal. Objective Data Active Medications Acetaminophen (Acetaminophen 325 Mg Tablet) 650 mg PO Q6H PRN PRN Reason: Pain, Mild (Pain Scale 1-3) Last Admin: 01/02/21 23:23 Dose: 650 mg Documented by: MACIEL Bisacodyl (Bisacodyl 10 Mg Supp.Rect) 10 mg [place] BEDTIME [facility] Last Admin: 01/02/21 20:34 Dose: Not Given Documented by: MACIEL Non-Admin Reason: Patient Refused Docusate Sodium (Docusate Sodium 100 Mg Capsule) 100 mg PO BID [facility] Last Admin: 01/02/21 20:35 Dose: Not Given Documented by: MACIEL Non-Admin Reason: Patient Refused Enoxaparin Sodium (Enoxaparin Sodium 40 Mg/0.4 Ml Syringe) 40 mg SUBCUT Q24H [facility] Last Admin: 01/03/21 03:06 Dose: 40 mg Documented by: MACIEL Escitalopram Oxalate (Escitalopram Oxalate 10 Mg Tablet) 10 mg PO BEDTIME [facility] Last Admin: 01/02/21 20:35 Dose: Not Given Documented by: MACIEL Non-Admin Reason: Patient Refused Fluticasone Propionate (Fluticasone Propionate Nasal 16 Gm [place]) 1 spray NOSTRIL-B DAILY [facility] Last Admin: 01/02/21 09:10 Dose: Not Given Documented by: CORA Non-Admin Reason: Patient Refused Metronidazole (Flagyl) 500 mg in 100 mls @ 100 mls/hr IV Q8H [facility] Last Infusion: 01/03/21 06:22 Dose: 0 mls/hr Documented by: MACIEL Lactated Ringer's (Lr) 1,000 mls @ 80 mls/hr IVCONT .[id number] [facility] Last Admin: 01/03/21 04:13 Dose: 80 mls/hr Documented by: MACIEL Levofloxacin (Levaquin) 750 mg in 150 mls @ 100 mls/hr IV Q48H [facility] Last Infusion: 01/02/21 23:25 Dose: 0 mls/hr Documented by: MACIEL Ketorolac Tromethamine (Ketorolac Tromethamine 15 Mg/Ml Vial) 15 mg IVPUSH Q6H PRN PRN Reason: abd pain Omeprazole (Omeprazole 20 Mg Capsule.Dr) 20 mg PO DAILY@0630 [facility] Last Admin: 01/03/21 06:25 Dose: Not Given Documented by: MACIEL Non-Admin Reason: Nausea Ondansetron HCl (Ondansetron Hcl 4 Mg/2 Ml Vial) 4 mg IVPUSH Q6H PRN PRN Reason: Nausea Prochlorperazine Edisylate (Prochlorperazine Edisylate 10 Mg/2 Ml Vial) 5 mg IVPUSH Q6H [facility] Senna (Sennosides 8.6 Mg Tablet) 17.2 mg PO DAILY [facility] Last Admin: 01/02/21 09:11 Dose: Not Given Documented by: CORA Non-Admin Reason: Patient Refused Vitamin D (Cholecalciferol (Vitamin D3) 25 Mcg Tablet) 50 mcg PO DAILY [facility] Last Admin: 01/02/21 09:10 Dose: Not Given Documented by: CORA Non-Admin Reason: Patient Refused Labs CBC & Chem 7: 01/01/21 06:56 01/01/21 06:56 Microbiology Microbiology Results: Microbiology 12/31/20 21:03 Blood Culture - Preliminary Blood - Venous No growth after 48 hours. 12/31/20 20:52 Blood Culture - Preliminary Blood - Venous No growth after 48 hours. Assessment and Plan (1) Colitis: Status: Acute Assessment and Plan: 65-year-old female with past medical history significant for depression anxiety? presents to the hospital with abdominal pain 1. abdominal pain- secondary to colitis, ischemic versus infectious patient has leukocytosis with no fever, no tachycardia or tachypnea ?normal lactic acid,has no history of arrhythmia continue? on IV antibiotic--Levaquin and Flagyl blood culture neg@ 24 hrs stool studies need to be sent. nausea -compazine schduled , add ed prn zofran - general surgery [id number] IV antibiotics and hydration.? 2.colitis - ischemic versus infectious versus post colonoscopy - findings as above on CT scan of the abdomen - will start her on antibiotics - follow culture 3. depression anxiety - continue home medication Quality Stroke Does the patient have a stroke diagnosis?: No VTE Prior VTE?: No VTE Risk Level:: Medical - moderate - high VTE Device Contraindication: Treatment Not Indicated VTE Drug Contraindication: N/A - Med Ordered
[2021-01-04 04:00] VITALS: BP 133/79; PULSE 80; RESP 20; TEMP 37; O2SAT 95
[2021-01-04] MEDS: Omeprazole 20 MG CAPSULE.DR PO (05:54)
[2021-01-04 08:00] VITALS: BP 142/72; PULSE 79; RESP 16; TEMP 36.2; O2SAT 93
[2021-01-04] MEDS: Cholecalciferol (Vitamin D3) 25 MCG TABLET 50 MCG PO (09:24)
[2021-01-04] MEDS: Fluticasone Propionate Nasal 16 GM SPRAY 1 SPRAY NOSTRIL-B (09:25)
--- NOTE | 2021-01-04 11:13 | HO.PM.IMPN ---
Subjective Subjective Date of Service: 01/04/21 Interval History: colitis Review of Systems abd pain and nausea tolerated liquid diet little today Physical Exam Vital Signs: Vital Signs: Last Vital Signs Temp 97.1 F 01/04/21 08:00 Pulse 79 01/04/21 08:00 Resp 16 01/04/21 08:00 BP 142/72 H 01/04/21 08:00 Pulse Ox 93 01/04/21 08:00 Body Mass Index 23.8 ?Appearance: Ax3.? not in distress.? Eyes: Pupils equal, round and reactive to light.? Sclera nonicteric.? ENT: Pharynx normal.? Moist mucous membranes. cvs: rrr, [id number] , no murmur res: clear to auscultation ,no rhonchii or wheezing abd: no rebound or guarding, left sided abd pain seems improving, bs present. ext pulses present , no cyanosis ,Gait well balanced well coordinated. neuro: axo3 , nonfocal. Objective Data Active Medications Acetaminophen (Acetaminophen 325 Mg Tablet) 650 mg PO Q6H PRN PRN Reason: Pain, Mild (Pain Scale 1-3) Last Admin: 01/02/21 23:23 Dose: 650 mg Documented by: MACIEL Bisacodyl (Bisacodyl 10 Mg Supp.Rect) 10 mg AR BEDTIME [facility] Last Admin: 01/03/21 20:47 Dose: Not Given Documented by: AMY Non-Admin Reason: Patient Refused Docusate Sodium (Docusate Sodium 100 Mg Capsule) 100 mg PO BID [facility] Last Admin: 01/04/21 09:25 Dose: Not Given Documented by: MILE Non-Admin Reason: Patient Refused Enoxaparin Sodium (Enoxaparin Sodium 40 Mg/0.4 Ml Syringe) 40 mg SUBCUT Q24H [facility] Last Admin: 01/04/21 03:26 Dose: Not Given Documented by: AMY Non-Admin Reason: Patient Refused Escitalopram Oxalate (Escitalopram Oxalate 10 Mg Tablet) 10 mg PO BEDTIME [facility] Last Admin: 01/03/21 20:47 Dose: Not Given Documented by: AMY Non-Admin Reason: Patient Refused Fluticasone Propionate (Fluticasone Propionate Nasal 16 Gm [place]) 1 spray NOSTRIL-B DAILY [facility] Last Admin: 01/04/21 09:25 Dose: 1 spray Documented by: MILE Metronidazole (Flagyl) 500 mg in 100 mls @ 100 mls/hr IV Q8H [facility] Last Admin: 01/04/21 05:27 Dose: Not Given Documented by: AMY Non-Admin Reason: Physician Held Med Levofloxacin (Levaquin) 750 mg in 150 mls @ 100 mls/hr IV Q48H [facility] Last Infusion: 01/02/21 23:25 Dose: 0 mls/hr Documented by: MACIEL Ketorolac Tromethamine (Ketorolac Tromethamine 15 Mg/Ml Vial) 15 mg IVPUSH Q6H PRN PRN Reason: abd pain Omeprazole (Omeprazole 20 Mg Capsule.Dr) 20 mg PO DAILY@0630 [facility] Last Admin: 01/04/21 05:54 Dose: 20 mg Documented by: AMY Ondansetron HCl (Ondansetron Hcl 4 Mg/2 Ml Vial) 4 mg IVPUSH Q6H PRN PRN Reason: Nausea Prochlorperazine Edisylate (Prochlorperazine Edisylate 10 Mg/2 Ml Vial) 5 mg IVPUSH Q6H [facility] Last Admin: 01/04/21 09:25 Dose: Not Given Documented by: MILE Non-Admin Reason: Patient Refused Senna (Sennosides 8.6 Mg Tablet) 17.2 mg PO DAILY [facility] Last Admin: 01/04/21 09:25 Dose: Not Given Documented by: MILE Non-Admin Reason: Patient Refused Vitamin D (Cholecalciferol (Vitamin D3) 25 Mcg Tablet) 50 mcg PO DAILY [facility] Last Admin: 01/04/21 09:24 Dose: 50 mcg Documented by: MILE Labs CBC & Chem 7: 01/01/21 06:56 01/01/21 06:56 Assessment and Plan (1) Colitis: Status: Acute Assessment and Plan: 65-year-old female with past medical history significant for depression anxiety? presents to the hospital with abdominal pain 1. abdominal pain- secondary to colitis, ischemic versus infectious patient has leukocytosis with no fever, no tachycardia or tachypnea ?normal lactic acid,has no history of arrhythmia will hold off antibiotics blood culture neg@ 24 hrs stool studies need to be sent, no bm's yesterday nausea -compazine schduled , add ed prn zofran-improving slightly today. - general surgery [id number] IV antibiotics and hydration.? 2.colitis - ischemic versus infectious versus post colonoscopy - findings as above on CT scan of the abdomen off antibiotics, probable ischemic colitis . 3. depression anxiety - continue home medication Quality Stroke Does the patient have a stroke diagnosis?: No VTE Prior VTE?: No VTE Risk Level:: Medical - moderate - high VTE Device Contraindication: Treatment Not Indicated VTE Drug Contraindication: N/A - Med Ordered
[2021-01-04 11:34] VITALS: BP 129/76; PULSE 84; RESP 18; TEMP 36.1; O2SAT 96
[2021-01-04 12:24] LABS: CDiff Gene PCR NEGATIVE (Negative)
--- NOTE | 2021-01-04 13:55 | PC.NURSE ---
patient refusing IV antibiotics and anti-nausea medication, aware
[2021-01-04 14:18] LABS: Leukocytes Stool Qualitative NEGATIVE (NEGATIVE)
[2021-01-04 15:31] VITALS: BP 138/72; PULSE 83; RESP 18; TEMP 36.5; O2SAT 97
[2021-01-04 19:40] VITALS: BP 128/70; PULSE 89; RESP 18; TEMP 37.2; O2SAT 94
[2021-01-04 23:46] VITALS: BP 148/75; PULSE 76; RESP 18; TEMP 37.1; O2SAT 96
[2021-01-05 04:00] VITALS: BP 128/72; PULSE 73; RESP 20; TEMP 37.1; O2SAT 95
--- NOTE | 2021-01-05 04:18 | PC.NURSE ---
pt refusing lovenox and compazine. pt states she has been up and walking around and doesn't need the lovenox she has been educated and continues to refuse.
[2021-01-05] MEDS: Omeprazole 20 MG CAPSULE.DR PO (06:06)
[2021-01-05 07:04] VITALS: BP 127/77; PULSE 72; RESP 18; TEMP 36.1; O2SAT 94
[2021-01-05] MEDS: Fluticasone Propionate Nasal 16 GM SPRAY 1 SPRAY NOSTRIL-B (09:38)
[2021-01-05] MEDS: Cholecalciferol (Vitamin D3) 25 MCG TABLET 50 MCG PO (09:38)
--- NOTE | 2021-01-05 10:00 | PM.DS ---
DS: Providers Provider Date of Service: 01/05/21 Date of admission: 12/31/20 23:48 Date of discharge: 01/05/21 Primary care physician: [facility] Consults: 01/01/21 01:22 Consult to General Surgery Routine Consulting Provider: Latha Hollis Reason for consultation: colitis Has provider been notified: Yes DS: Diagnosis Discharge Diagnosis (1) Colitis: Status: Acute DS: Summary Hospital Course Hospital Course: 65-year-old female with past medical history significant for depression anxiety? presents to the hospital with abdominal pain. Hospital course: Patient came with abdominal pain and subsequently admitted for ischemic colitis-patient was started on IV antibiotics, pain control subsequently patient seems to be improving-patient received 3 days of antibiotics but does not seem like the infectious colitis so will stop IV antibiotics. stool for wbc , c diff neg, stool culture and blood culture neg. If any new abdominal pain or diarrhea or any fever Above management discussed with the patient in detail length she understand and in agreement with the above plan, time spent 50 minutes and 50% time spent on counseling. Significant findings: As above. Procedures performed: None. Treatment and response: As above. Complications: None. Time Spent with Patient Time attestation: Total time spent providing and/or coordinating discharge services: Discharge coordination time: Greater than 30 minutes Quality: Stroke Does the patient have a stroke diagnosis?: No Physical Exam Vital Signs: Vital Signs: Last Vital Signs Temp 97 F 01/05/21 07:04 Pulse 72 01/05/21 07:04 Resp 18 01/05/21 07:04 BP 127/77 01/05/21 07:04 Pulse Ox 94 01/05/21 07:04 Body Mass Index 23.8 Appearance: Ax3.? not in distress.? Eyes: Pupils equal, round and reactive to light.? Sclera nonicteric.? ENT: Pharynx normal.? Moist mucous membranes. cvs: rrr, [id number] , no murmur res: clear to auscultation ,no rhonchii or wheezing abd: no rebound or guarding, nd,nt, bs present. ext pulses present , no cyanosis ,Gait well balanced well coordinated. neuro: axo3 , nonfocal. DS: Data Data Completed and Pending Labs on day of discharge: Laboratory Results - last 24 hr 01/04/21 01/04/21 09:44 09:44 Stool Leukocytes, Qual NEGATIVE C. difficile Tox B Gene NEGATIVE Preliminary micro results at discharge 01/04/21 09:44 Stool Culture - Preliminary Stool Normal so far. 12/31/20 21:03 Blood Culture - Preliminary Blood - Venous No growth after 48 hours. 12/31/20 20:52 Blood Culture - Preliminary Blood - Venous No growth after 48 hours. Discharge Plan Discharge Patient Disposition: Home, Self-Care Discharge Diagnosis: colitis Referrals: [facility],Replaced By [facility] [Primary Care Provider] - 1 Week Discharge Medications: Continued fluticasone propionate 50 mcg/actuation spray,suspension 1 spray intranasal DAILY Qty: 16 RF: 11 cholecalciferol (vitamin D3) [Vitamin D3] 50 mcg (2,000 unit) tablet 50 mcg PO DAILY Qty: 90 RF: 3 escitalopram oxalate 10 mg tablet 10 mg PO BEDTIME 90 Days Qty: 90 RF: 0 Discharge Orders: Discharge Order (Routine); Ordered 01/05/21 Ordered By: Husam Sullivan Diet: advance to usual diet Activity on Discharge: As tolerated Stand Alone Forms: Patient Portal Discharge page Care Plan Goals: Patient came with abdominal pain and subsequently admitted for ischemic colitis-patient was started on IV antibiotics, pain control subsequently patient seems to be improving-patient received 3 days of antibiotics but does not seem like the infectious colitis so will stop IV antibiotics. stool for wbc , c diff neg, stool culture and blood culture neg. If any new abdominal pain or diarrhea or any fever Health Concerns: as above. Plan of Treatment: As above. Assessment: As above.
--- NOTE | 2021-01-05 10:25 | MHC.CM.PN ---
PT TO DC HOME TODAY WITH NO SERVICES PT TO SELF ARRANGE TRANSPORT
[2021-01-05 11:01] VITALS: BP 131/68; PULSE 90; RESP 16; TEMP 36.1; O2SAT 97
--- NOTE | 2021-01-05 11:17 | MHC.CM.PN ---
order for home, self-care. CM acknowledged.
[2021-01-05 11:56] VITALS: BP 133/90; PULSE 89; RESP 18; TEMP 36.2; O2SAT 97
== END 2021-01-05 13:10 | disposition home or self-care (01) | DRG 395 ==
LOC: HO.ED 22:45 → HO.EDOVER 01-01 00:10 → HO.IMC 01-01 14:34
PROVIDERS: Admitting Provider Internal Medicine; Emergency Provider Internal Medicine; Visit Provider Internal Medicine
DX: K55.9 Vascular disorder of intestine, unspecified (principal); F32.9 Major depressive disorder, single episode, unspecified; F41.9 Anxiety disorder, unspecified; Z88.5 Allergy status to narcotic agent; Z79.51 Long term (current) use of inhaled steroids; Z79.899 Other long term (current) drug therapy
CPT/HCPCS: 36415; 74176; 80048; 80053; 83605; 83690; 85025; 87040; 87045; 87046; 87493; 87635; 89055; 90686; 96361; 96374; 96375; 99285; J1650; J1956; J2270; J2405

== ENCOUNTER → 2021-04-07 09:46 | Outpatient (BNVA) | payer MEDICARE, MEDICAID, SELFPAY | PROVIDERS: PCP Internal Medicine; Referring Provider Internal Medicine; Visit Provider Internal Medicine Gastroenterology | DX: Z13.89 Encounter for screening for other disorder (principal) | CPT/HCPCS: Q3014 ==

== ENCOUNTER 2021-04-17 08:24 | Outpatient (REF) | payer MEDICARE, MEDICAID, SELFPAY ==
[2021-04-17 11:22] LABS: Alanine Aminotransferase 14 U/L (0-31); Albumin Level 4.1 g/dL (3.5-5.0); Alkaline Phosphatase 92 U/L (39-117); Anion Gap 11 (12-20); Aspartate Amino Transferase 10 U/L (5-31); Bilirubin Total 0.7 mg/dL (0.0-1.0); Blood Urea Nitrogen 21 mg/dL (9-16); Calcium 9.4 mg/dL (8.4-10.2); Carbon Dioxide 27 mmol/L (22-29); Chloride 104 mmol/L (96-108); Cholesterol 234 mg/dL; Estimated Glomerular Filt Rate 59; Glucose Fasting 107 mg/dL (60-99); HDL Cholesterol 72 mg/dL; LDL Cholesterol Calculated 147 mg/dl; Potassium 4.3 mmol/L (3.3-5.1); Sodium 138 mmol/L (135-145); Total Protein 6.7 g/dL (6.5-8.0); Triglycerides 75 mg/dL
[2021-04-17 11:24] LABS: Free T4 (Free Thyroxine) 0.87 ng/dL (0.71-1.85); Thyroid Stimulating Hormone 0.45 uIU/mL (0.32-4.0)
[2021-04-18 06:37] LABS: Thyroglobulin Antibodies <1 IU/mL (< or = 1); Thyroid Peroxidase Antibodies <1 IU/mL (<9)
[2021-04-21 16:17] LABS: Vitamin D 25-OH, D2 5 ng/mL; Vitamin D 25-OH, D3 51 ng/mL; Vitamin D 25-OH, Total 56 ng/mL (30-100)
== END 2021-04-17 08:25 | disposition home or self-care (01) ==
LOC: HO.10HDL 08:24
PROVIDERS: Visit Provider Internal Medicine
DX: R10.32 Left lower quadrant pain (principal); E04.2 Nontoxic multinodular goiter; E78.5 Hyperlipidemia, unspecified; E55.9 Vitamin D deficiency, unspecified
CPT/HCPCS: 36415; 80053; 80061; 82306; 84439; 84443; 86376; 86800

== ENCOUNTER 2021-05-14 08:57 | Outpatient (REF) | payer MEDICARE, MEDICAID, SELFPAY ==
[2021-05-16 15:07] LABS: TS Negative Control Passed; TS Panel A 0; TS Panel B 0; TS Positive Control Passed; TSpotTB Negative (Negative)
== END 2021-05-14 08:58 | disposition home or self-care (01) ==
LOC: HO.10HDL 08:57
PROVIDERS: Visit Provider Internal Medicine
DX: Z11.1 Encounter for screening for respiratory tuberculosis (principal)
CPT/HCPCS: 36415; 86481

== ENCOUNTER → 2021-06-04 12:58 | Outpatient (BNVA) | payer MEDICARE, MEDICAID, SELFPAY | PROVIDERS: PCP Internal Medicine; Visit Provider Internal Medicine Endocrinology, Diabetes & Metabolism | DX: E04.2 Nontoxic multinodular goiter (principal) | CPT/HCPCS: 99212 ==

== ENCOUNTER 2021-12-02 15:02 | Outpatient (REF) | payer MEDICARE, MEDICAID, SELFPAY ==
--- NOTE | ~2021-12-02 | MM_ITS ---
EXAMINATION: MM SCREENING DIGITAL BREAST TOMOSYNTHESIS, BILATERAL CLINICAL INFORMATION: Screening. Asymptomatic. The lifetime risk of breast cancer based on the Tyrer-Cuzick Model is 8%. COMPARISON: Mammography: 11/27/2020, 12/11/2019, 11/22/2019, 06/27/2018 TECHNIQUE: Digital breast tomosynthesis is performed in both the craniocaudal and mediolateral oblique views along with computer-aided detection (CAD). Synthesized 2D images are generated from the tomosynthesis. FINDINGS: There are scattered areas of fibroglandular density (ACR BI-RADS breast composition Category b). Parenchymal pattern is similar to prior studies and there is no developing density or interval architectural abnormality. There are no significant masses, abnormal calcifications, or other abnormalities. The axilla and skin contours are unremarkable. No significant changes. MM/MM tomosynthesis screening BI IMPRESSION: No mammographic evidence of malignancy. ASSESSMENT: BI-RADS 1: Negative RECOMMENDATION: Routine annual mammography screening. This patient's information was entered into a reminder system with a target due date for their next mammogram.
== END 2021-12-02 15:03 | disposition home or self-care (01) ==
LOC: HO.MAMMO 15:02
PROVIDERS: Visit Provider Internal Medicine
DX: Z12.31 Encounter for screening mammogram for malignant neoplasm of breast (principal)
CPT/HCPCS: 77063; 77067

== ENCOUNTER 2021-12-10 08:04 | Outpatient (REF) | payer MEDICARE, MEDICAID, SELFPAY ==
[2021-12-10 10:49] LABS: Alanine Aminotransferase 17 U/L (0-31); Albumin Level 4.3 g/dL (3.5-5.0); Alkaline Phosphatase 84 U/L (39-117); Anion Gap 15 (12-20); Aspartate Amino Transferase 11 U/L (5-31); Bilirubin Total 0.9 mg/dL (0.0-1.0); Blood Urea Nitrogen 10 mg/dL (9-16); Calcium 9.6 mg/dL (8.4-10.2); Carbon Dioxide 26 mmol/L (22-29); Chloride 104 mmol/L (96-108); Cholesterol 225 mg/dL; Estimated Glomerular Filt Rate > 60; Glucose Fasting 100 mg/dL (60-99); HDL Cholesterol 92 mg/dL; LDL Cholesterol Calculated 120 mg/dl; Potassium 4.1 mmol/L (3.3-5.1); Sodium 141 mmol/L (135-145); Total Protein 6.8 g/dL (6.5-8.0); Triglycerides 66 mg/dL
[2021-12-10 11:36] LABS: Free T4 (Free Thyroxine) 0.95 ng/dL (0.71-1.85)
[2021-12-10 12:37] LABS: Thyroid Stimulating Hormone 0.43 uIU/mL (0.32-4.0)
== END 2021-12-10 08:05 | disposition home or self-care (01) ==
LOC: HO.10HDL 08:04
PROVIDERS: Visit Provider Internal Medicine
DX: E04.2 Nontoxic multinodular goiter (principal); E78.5 Hyperlipidemia, unspecified
CPT/HCPCS: 36415; 80053; 80061; 84439; 84443

== ENCOUNTER 2022-06-19 08:54 | Outpatient (REF) | payer MEDICARE, MEDICAID, SELFPAY ==
[2022-06-19 11:02] LABS: Alanine Aminotransferase 16 U/L (0-31); Albumin Level 4.3 g/dL (3.5-5.0); Alkaline Phosphatase 70 U/L (39-117); Anion Gap 12 (12-20); Aspartate Amino Transferase 12 U/L (5-31); Bilirubin Total 0.8 mg/dL (0.0-1.0); Blood Urea Nitrogen 13 mg/dL (9-16); Calcium 9.3 mg/dL (8.4-10.2); Carbon Dioxide 28 mmol/L (22-29); Chloride 105 mmol/L (96-108); Cholesterol 216 mg/dL; Estimated Glomerular Filt Rate > 60; Glucose Fasting 87 mg/dL (60-99); HDL Cholesterol 74 mg/dL; LDL Cholesterol Calculated 125 mg/dl; Potassium 4.7 mmol/L (3.3-5.1); Sodium 140 mmol/L (135-145); Total Protein 6.5 g/dL (6.5-8.0); Triglycerides 86 mg/dL
== END 2022-06-19 08:55 | disposition home or self-care (01) ==
LOC: HO.10HDL 08:54
PROVIDERS: Visit Provider Internal Medicine
DX: E78.5 Hyperlipidemia, unspecified (principal); E55.9 Vitamin D deficiency, unspecified
CPT/HCPCS: 36415; 80053; 80061; 82306

== ENCOUNTER 2022-07-02 05:55 | Inpatient (IN) | payer MEDICARE, MEDICAID, SELFPAY ==
[2022-07-02] VITALS (16 sets, daily range): BP systolic 107–147; BP diastolic 64–82; PULSE 51–80; RESP 16–20; TEMP 36.1–36.8; O2SAT 92–99; BMI 51.2; BMI 23.2; BMI 24.5
--- NOTE | ~2022-07-02 | CT_ITS ---
EXAMINATION: CT ABDOMEN AND PELVIS WITHOUT CONTRAST CLINICAL INFORMATION: Abdominal pain. COMPARISON: 12/31/2020 CT scan of the abdomen and pelvis. TECHNIQUE: Multidetector volumetric imaging was performed from the superior aspect of the liver through the pubic symphysis. Sagittal and coronal reformatted images were obtained on the technologist's workstation. Lack of intravenous and oral contrast limits visceral evaluation. This CT examination was performed using dose optimization techniques as appropriate, variously including the following: *Automated exposure control *Adjustment of mA and/or kV according to patient size (this includes techniques or standardized protocols for targeted exams where dose is matched to indication/reason for exam; i.e. extremities or head) *Use of iterative reconstruction technique DLP: 356 mGy-cm FINDINGS: LUNG BASES: The visualized lung bases are unremarkable. LIVER, GALLBLADDER, AND BILIARY TREE: Unremarkable. PANCREAS: Unremarkable. SPLEEN: Unremarkable. ADRENAL GLANDS: Unremarkable. KIDNEYS AND URETERS: The kidneys are normal in size, shape, and attenuation. No hydronephrosis, hydroureter, or calculi seen. No perinephric stranding. BLADDER: Unremarkable. GASTROINTESTINAL TRACT: The stomach and proximal small bowel is unremarkable. Multiple loops of dilated jejunum and ileum are seen with air-fluid levels extending to a short segment of a right parasagittal ventral hernia with narrowed neck. A claim service representative bowel loop in the left abdomen laterally measures 3.2 cm in transverse dimension (image 46, series 3). Mild adjacent mesenteric infiltrative changes are seen. The distal ileal loops are decompressed. The ileal anastomosis is intact without abnormality. The terminal ileum is unremarkable. No evidence for acute appendicitis. The colon shows mild diverticulosis distally. The distal colonic anastomosis is intact. The rectum is unremarkable. ABDOMINAL WALL: Right mid sagittal frontal hernia containing a single short loop of ileum. Small fat-containing right periumbilical hernia. Small fat-containing left inguinal hernia. LYMPH NODES: No lymphadenopathy. VASCULAR: Mild to moderate atherosclerosis most pronounced in the infrarenal abdominal aorta. PELVIC VISCERA: Unremarkable. Mild free fluid in the cul-de-sac. OSSEOUS STRUCTURES: Mild thoracolumbar dextroscoliosis with mild degenerative disc disease at L4-L5. CT/CT abdomen pelvis wo IV con IMPRESSION: 1. Partial small bowel obstruction caused by a short ileal loop segment, possibly entrapped in the right mid sagittal residual hernia. Surgical consultation is recommended. 2. Mild distal colonic diverticulosis.
--- OUTSIDE RECORDS SUMMARY | 2022-07-02 06:58 | XMS_ITS | Continuity of Care Document ---
Author Name Unknown Organization [facility] Address [address] [place] [address]- Care Team Providers Care Upstairs Maid Name Role Phone Zain Elizabeth MD, Brittany Rodrigez Primary Care Physician Encounter [facility] [place] Date(s): 09/22/21 - 10/22/21 [facility] [address] [place] [id number] Allergies, Adverse Reactions, Alerts Substance Reaction Severity Status Vicodin CHRONIC VOMITING Active Medications cholecalciferol 50,000 intl units oral capsule 1 capsule = 50,000 International_Units, By Mouth, Every week, # 12 capsule, 0 Refills, Maintenance,05/04/19 13:41:00 EST, Capsule Start Date: 05/04/19 Status: Ordered Flonase 50 mcg/inh nasal spray 1 sprays, Nares, Both, 2 times a day, # 16 Gm, 0 Refills, Maintenance, 05/04/19 13:38:00 EST, [place] Start Date: 05/04/19 Status: Ordered ibuprofen 800 mg oral tablet 800 mg, 1, tablet, By Mouth, 3 times a day, PRN, # 30 tablet, Refills 0, Maintenance, for pain, 05/04/19 13:38:00 EST Start Date: 05/04/19 Status: Ordered Sudafed 24-Hour oral tablet, extended release 1 tablet = 240 mg, By Mouth, Daily, PRN as needed for cold symptoms, # 10 tablet, 0 Refills, Maintenance, 05/04/19 13:38:00 EST, ER Tablet Start Date: 05/04/19 Status: Ordered Social History Social History Type Response Smoking Status Former smoker, quit more than 30 days ago entered on: 05/04/19 Sex
--- OUTSIDE RECORDS SUMMARY | 2022-07-02 06:58 | XMS_ITS | Continuity of Care Document ---
Author Name Unknown Organization [facility] Address [address] [place] [address] Dr [address] [place] [address]- Care Team Providers Care Shaker Out Name Role Phone Zain Elizabeth MD, Alina Rodrigez Primary Care Physician [phone] Encounter [facility] [place] Date(s): 05/04/19 - 05/11/[address] [place] [address]- [facility] Attending Physician: Marleni DOAN, Carlotta Referring Physician: Annabel Love MD Allergies, Adverse Reactions, Alerts Substance Reaction Severity [...] Gm, 0 Refills, Maintenance, 05/04/19 13:38:00 EST, [place] Start Date: 05/04/19 Status: Ordered ibuprofen 800 [...] ER Tablet Start Date: 05/04/19 Status: Ordered Vital Signs Most recent to oldest [Reference Range]: 1 Height 157 cm (05/04/19 1:34 PM) Weight 64.0 kg (05/04/19 1:34 PM) Pulse Rate [55-90 bpm] 76 bpm (05/04/19 1:34 PM) Body Mass Index [18.5-24.99] 25.96 *H* (05/04/19 1:34 PM) Blood Pressure [90-138/55-84 mm Hg] 149/ 83mm Hg *H* (05/04/19 1:34 PM) Respiratory Rate [16-30 br/min] 20 br/mi n (05/04/19 1:34 PM) Temperature [96.8-100.4 DegF] 98.6 DegF (05/04/19 1:34 PM) Blood pressure sites Arm, left (05/04/19 1:34 PM) Temperature Route Oral (05/04/19 1:34 PM) Weight Obtained Via Standing scale (05/04/19 1:34 PM) Social History Social History Type Response Smoking Status Former smoker, quit more than 30 days ago entered on: 05/04/19 Sex
--- OUTSIDE RECORDS SUMMARY | 2022-07-02 06:58 | XMS_ITS | Continuity of Care Document ---
Author Name Unknown Organization [facility] Address [address] [place] [address]- Care Team Providers Care Welfare Officer Name Role Phone Zain Elizabeth MD, Brittany Rodrigez Primary Care Physician [phone] Encounter [facility] [place] Date(s): 07/31/21 - 08/30/21 [facility] [address] [place] [id number] Allergies, Adverse Reactions, Alerts Substance Reaction Severity [...] Gm, 0 Refills, Maintenance, 05/04/19 13:38:00 EST, [place] Start Date: 05/04/19 Status: Ordered ibuprofen 800 [...]
--- OUTSIDE RECORDS SUMMARY | 2022-07-02 06:58 | XMS_ITS | Continuity of Care Document ---
Author Name Unknown Organization [facility] Address [address] [place] [address]- Care Team Providers Care Behavior Analyst Name Role Phone Zain Elizabeth MD, Brittany Rodrigez Primary Care Physician [place] [facility] [place] - 10/26/21 [facility] [address] [place] [id number] Attending Physician: Admtr, Mickey Admitting Physician: Admtr, Ar8 Referring Physician: Admtr, Ar8 Allergies, Adverse Reactions, Alerts Substance Reaction Severity [...] Gm, 0 Refills, Maintenance, 05/04/19 13:38:00 EST, [place] Start Date: 05/04/19 Status: Ordered ibuprofen 800 [...]
--- OUTSIDE RECORDS SUMMARY | 2022-07-02 06:58 | XMS_ITS | Continuity of Care Document ---
Author Name Unknown Organization [facility] Address [address] [place] [address]- Care Team Providers Care Editor Trade Journal Name Role Phone Zain Elizabeth MD, Brittany Rodrigez Primary Care Physician Encounter [facility] [place] Date(s): 09/16/21 - 10/26/21 [facility] [address] [place] [id number] Attending Physician: Shilpi Sevilla MD Admitting Physician: Shilpi Sevilla MD Referring Physician: Brittany Lagos MD Allergies, Adverse Reactions, Alerts Substance Reaction [...] Gm, 0 Refills, Maintenance, 05/04/19 13:38:00 EST, [place] Start Date: 05/04/19 Status: Ordered ibuprofen 800 [...]
--- OUTSIDE RECORDS SUMMARY | 2022-07-02 06:58 | XMS_ITS | Continuity of Care Document ---
Author Name Unknown Organization [facility] Address [address] [place] [address]- Care Team Providers Care Plant Controls Specialist Name Role Phone Zain Elizabeth MD, Brittany Rodrigez Primary Care Physician [phone] Encounter [facility] [place] Date(s): 06/20/21 - 09/03/21 [facility] [address] [place] [id number] Attending Physician: Colette Sultana MD Admitting Physician: Kayy DOAN, Colette Referring Physician: Brittany Lagos MD Allergies, Adverse [...] Gm, 0 Refills, Maintenance, 05/04/19 13:38:00 EST, [place] Start Date: 05/04/19 Status: Ordered ibuprofen 800 [...]
--- OUTSIDE RECORDS SUMMARY | 2022-07-02 06:58 | XMS_ITS | Continuity of Care Document ---
Author Name Unknown Organization [facility] Address [address] [place] [address] [address] [place] [address]- Care Team Providers Care Consulting Utility Forester Name Role Phone Zain Elizabeth MD, Alina Rodrigez Primary Care Physician [phone] [place] [facility] [place] 05/14/[address] [place] [address]- [facility] Attending Physician: Admtr, Ar8 Admitting Physician: Admtr, Ar8 Referring Physician: Admtr, [...] Gm, 0 Refills, Maintenance, 05/04/19 13:38:00 EST, [place] Start Date: 05/04/19 Status: Ordered ibuprofen 800 [...]
--- NOTE | 2022-07-02 07:15 | ED.ABDPAIN ---
HPI - Abdominal Pain General Chief Complaint: Abdominal Pain Stated Complaint: abd pain Time Seen by Provider: 07/02/22 07:10 Source: patient Limitations: no limitations History of Present Illness HPI narrative: This is a 67 years old female presented to the emergency department complaining of abdominal pain since 21:00 yesterday. Patient as history of perforated diverticulitis in 2017 with colostomy which was reversed MD elicited complaint: abdominal pain Pertinent past history: other (hx perforated bowel) Pain Consistency: constant Severity: moderate Exacerbating factors: nothing Relieving factors: nothing Related Data Previous Rx's Medication Instructions Recorded fluticasone propionate 50 1 spray intranasal DAILY #16 mL 06/18/21 mcg/actuation nasal spray,suspension cholecalciferol (vitamin D3) 50 50 mcg PO DAILY 90 days #90 caps 03/05/22 mcg (2,000 unit) capsule (Vitamin D3) omeprazole 20 mg capsule,delayed 20 mg PO DAILY #90 caps 06/23/22 release Allergies Allergy/AdvReac Type Severity Reaction Status Date / Time hydrocodone [From VICODIN] AdvReac Intermediate VOMMITING,DIZZY, Verified 06/23/22 14:39 NAUSEA tramadol [TRAMADOL] AdvReac Intermediate NAUSEA & Verified 06/23/22 14:39 VOMITING oxycodone [From Percocet] AdvReac Mild Formication Verified 06/23/22 14:39 Review of Systems Constitutional: Reports no additional constitutional complaints Reports system reviewed and no additional complaints, except as documented Cardiovascular: Reports no additional cardiovascular complaints Gastrointestinal: Reports abdominal pain PMFSH Past Medical History Medical History Anxiety COVID-19 vaccine series completed Dyslipidemia Hypovitaminosis D Low TSH level Mild recurrent major depression Multinodular goiter Muscle ache Tachycardia Surgical History H/O colonoscopy History of ankle surgery History of appendectomy History of esophagogastroduodenoscopy (EGD) History of ileostomy History of reversal of ileostomy History of tonsillectomy Family History Family History Father Colon cancer Mother Breast cancer Brother Brain cancer Paternal Uncle Lung cancer Sister Breast cancer Substance use disorder Daughter Mental health disorder Social History Social History Household Members: Significant Other Housing: House Are you a primary managed care nurse to a significant other at home: No Do you presently have visiting nurse or other home services: No Alcohol intake: former Patient Tobacco Use Status: Former Tobacco user Quit Date: 2006 Tobacco use type: Cigarette Smoked in Last 30 Days: No e-Cigarette/Vaping Use: Never Used Second Hand Smoke Exposure: No Use of substances other than those prescribed or required for medical reasons: No Substance Use Type: Marijuana Are you DNR?: No Advance Directives: No Advance Directives Information Provided: No (eclined) service: No Current occupational status: unemployed and disabled Cognitive needs: No Hearing needs: No Vision needs: No Physical Exam ED Vital Signs: Vital Signs - 24 hr 07/02/22 06:34 07/02/22 07:12 07/02/22 07:34 Temperature 98.1 F 98.2 F Pulse Rate 67 67 Respiratory Rate 16 18 18 Blood Pressure 137/68 142/82 H Pulse Oximetry 98 97 Oxygen Delivery Method Room Air Room Air 07/02/22 08:24 07/02/22 09:47 Temperature 98.2 F 97.9 F Pulse Rate 57 64 Respiratory Rate 18 18 Blood Pressure 126/73 144/73 H Pulse Oximetry 97 98 Oxygen Delivery Method Room Air Room Air BMI result Body Mass Index 51.2 Const General: cooperative Nutritional Appearance: well nourished Orientation/consciousness: patient oriented x3 Limitations: no limitations HENMT Head: Yes normal to inspection General nose exam: Normal external nose present Face and sinus: Yes normal facial exam Mouth: Normal oral and palatal mucosa present Throat: Yes posterior oropharynx normal Neck Neck: Yes normal visual inspection Chest Chest palpation & inspection: normal inspection of the chest Resp Effort & Inspection: normal respiratory effort Auscultation: clear to auscultation bilaterally Cardio Jugular venous distension: no JVD Rate: regular rate Rhythm: regular rhythm GI Inspection: Yes normal to inspection Palpation (GI): Soft to palpation and Tenderness to palpation present (GI) (Tenderness in the right lower quadrant present) Auscultation: normal bowel sounds Skin General skin exam: no rashes or lesions noted Lesions: no lesions Rashes: no rashes Neuro General: patient oriented x3 Course Reevaluation(s) Reevaluation #1: seen b mariel Angelo in ED Medical Decision Making Medical Decision Making [facility] Narrative: Patient presented with the emergency department with lower quadrant pain since yesterday we will do CT, will give analgesia antiemetic CT was reviewed there is a partial small-bowel obstruction and probably of a hernia as etiology for destruction, patient was seen in consultation by Dr. Angelo,she will go to the OR Differential Diagnosis Differential Diagnoses: The differential diagnosis associated with the presentation includes Small-bowel obstruction, perforated bowel Admission/Observation Consideration of admission/observation: Escalation of care including admission/observation considered Consult Healthcare Provider Management of the patient was discussed with: Industrial Design Intern Dr Angelo Lab Data [facility] Lab Attestation statement: I reviewed the patient's lab results. 07/02/22 06:36 07/02/22 06:36 Labs: Lab Results 07/02/22 07/02/22 07/02/22 Range/Units 06:36 06:36 08:11 WBC 10.9 H (4.8-10.8) X10*3/uL RBC 4.34 (4.20-5.50) X10*6/uL Hgb 13.2 (12.0-16.0) g/dl Hct 38.5 (37.0-47.0) % MCV 88.7 (80.0-98.0) fL MCH 30.4 (27.0-33.0) pg MCHC 34.3 (31.0-35.0) g/dl RDW 12.9 (11.0-16.0) % Plt Count 426 H (160-400) X10*3/uL MPV 9.7 (9.4-12.3) fL Absolute Nucleated RBC 0.000 (0.0-0.012) X10*3/uL Nucleated RBC % (auto) 0.0 (0.0-0.2) /100WBC Sodium 140 (135-145) mmol/L Potassium 4.3 (3.3-5.1) mmol/L Chloride 103 (96-108) mmol/L Carbon Dioxide 26 (22-29) mmol/L Anion Gap 15 (12-20) BUN 17 H (9-16) mg/dL Creatinine 0.77 (0.5-1.4) mg/dL Estim Creat Clear Calc 90.4 Estimated GFR > 60 Random Glucose 126 H (60-115) mg/dL Lactic Acid 0.9 (0.5-2.0) mmol/L Calcium 9.9 D (8.4-10.2) mg/dL Total Bilirubin 0.6 (0.0-1.0) mg/dL AST 12 (5-31) U/L ALT 18 (0-31) U/L Alkaline Phosphatase 75 (39-117) U/L Total Protein 6.9 (6.5-8.0) g/dL Albumin 4.6 (3.5-5.0) g/dL Independent Interpretation I performed an independent interpretation of an: CT Scan Interpretation: SBO ? ? ? Radiology Impression Discussion of test interpretation with radiology: I have reviewed the radiologist's reading. Radiologist Impression: astomosis is intact without abnormality. The terminal ileum is unremarkable. No evidence for acute appendicitis. The colon shows mild diverticulosis distally. The distal colonic anastomosis is intact. The rectum is unremarkable. ABDOMINAL WALL: Right mid sagittal frontal hernia containing a single short loop of ileum. Small fat-containing right periumbilical hernia. Small fat-containing left inguinal hernia. LYMPH NODES: No lymphadenopathy. VASCULAR: Mild to moderate atherosclerosis most pronounced in the infrarenal abdominal aorta. PELVIC VISCERA: Unremarkable. Mild free fluid in the cul-de-sac. OSSEOUS STRUCTURES: Mild thoracolumbar dextroscoliosis with mild degenerative disc disease at L4-L5.? CT/CT abdomen pelvis wo IV con IMPRESSION: 1. Partial small bowel obstruction caused by a short ileal loop segment, possibly entrapped in the right mid sagittal residual hernia. Surgical consultation is recommended. 2. Mild distal colonic diverticulosis. ? External Record Review External record reviewed: Inpatient record Medications Administered Generic Name Dose Route Start Last Admin Trade Name Freq PRN Reason Stop Dose Admin Morphine Sulfate 4 mg 07/02/22 11:17 07/02/22 11:49 Morphine Sulfate 4 Mg/Ml Cartridge IVPUSH 4 mg Q4H PRN Administration Pain, Severe (Pain Scale 7-10) Protocol Discontinued Medications Generic Name Dose Route Start Last Admin Trade Name Freq PRN Reason Stop Dose Admin Promethazine HCl 12.5 mg/ 50.5 mls @ 202 mls/hr 07/02/22 11:10 07/02/22 11:59 Sodium Chloride IV 07/02/22 11:11 Infused ONCE ONE Infusion Morphine Sulfate 4 mg 07/02/22 07:13 07/02/22 07:34 Morphine Sulfate 10 Mg/Ml Cartridge IVPUSH 07/02/22 07:14 4 mg ONCE ONE Administration Protocol Ondansetron HCl 4 mg 07/02/22 07:13 07/02/22 07:33 Ondansetron Hcl 4 Mg/2 Ml Vial IVPUSH 07/02/22 07:14 4 mg ONCE ONE Administration Scopolamine 1.5 mg 07/02/22 12:13 07/02/22 12:28 Scopolamine 1.5 Mg Patch.Td.3 TRANSDERMA 07/02/22 12:14 1.5 mg PREOP ONE Administration Discharge Plan Discharge Clinical Impression: Abdominal pain, SBO (small bowel obstruction) Patient Disposition: Admitted As Inpatient Interventions: Admission Worksheet (ED) Last Done: 07/02/22 11:59 Discharge Date/Time: 07/02/22 12:00
--- NOTE | 2022-07-02 07:25 | PC.NURSE ---
Pt found lying semi-fowlers in hospital bed, airway open and patent, no dif/labored breathing, speaking in full sentences, no obvious signs of distress. Lung sounds clr and equal bilaterally. Skin pink, warm, and dry. Heart sounds normal. Bowel sounds present all glover, Abdomen revels lump on right middle side, tender upon palpation. No edema noted. Pt aware of plan of care.
[2022-07-02] MEDS: ondansetron HCL 4 MG/2 ML VIAL IVPUSH (07:33)
[2022-07-02] MEDS: Morphine Sulfate 10 MG/ML CARTRIDGE 4 MG IVPUSH (07:34)
[2022-07-02 07:45] LABS: Alanine Aminotransferase 18 U/L (0-31); Albumin Level 4.6 g/dL (3.5-5.0); Alkaline Phosphatase 75 U/L (39-117); Anion Gap 15 (12-20); Aspartate Amino Transferase 12 U/L (5-31); Bilirubin Total 0.6 mg/dL (0.0-1.0); Blood Urea Nitrogen 17 mg/dL (9-16); Calcium 9.9 mg/dL (8.4-10.2); Carbon Dioxide 26 mmol/L (22-29); Chloride 103 mmol/L (96-108); Creatinine Clr Calc Pharmacy 90.4; Estimated Glomerular Filt Rate > 60; Glucose Random 126 mg/dL (60-115); Potassium 4.3 mmol/L (3.3-5.1); Sodium 140 mmol/L (135-145); Total Protein 6.9 g/dL (6.5-8.0)
[2022-07-02 07:48] LABS: Hematocrit 38.5 % (37.0-47.0); Hemoglobin 13.2 g/dl (12.0-16.0); Mean Corpuscular HGB Conc 34.3 g/dl (31.0-35.0); Mean Corpuscular Hemoglobin 30.4 pg (27.0-33.0); Mean Corpuscular Volume 88.7 fL (80.0-98.0); Mean Platelet Volume 9.7 fL (9.4-12.3); Platelet Count 426 X10*3/uL (160-400); Red Blood Count 4.34 X10*6/uL (4.20-5.50); Red Cell Distribution Width 12.9 % (11.0-16.0); White Blood Count 10.9 X10*3/uL (4.8-10.8)
[2022-07-02 08:31] LABS: Lactic Acid 0.9 mmol/L (0.5-2.0)
--- NOTE | 2022-07-02 11:28 | PM.HPGS ---
History of Present Illness History of Present Illness Date of Service: 07/03/22 <Aislinn Shah PA-C - Last Filed: 07/03/22 08:30> 07/03/22 <Herbert Chowdary MD - Last Filed: 07/03/22 09:44> Chief complaint: incarcerated incisional hernia <Aislinn Shah PA-C - Last Filed: 07/03/22 08:30> Narrative: Selma Huston is a 67 year old female with PMH of GERD who presented to the ED with complaints of abdominal pain and nausea/vomiting. She reports the pain started last night on the right associated with a lump. It was very painful to touch. The pain worsened in severity and she developed nausea and vomiting this morning which prompted her to seek evaluation in the ED. She has a history of exploratory laparotomy with low anterior resection and diverting loop ileostomy (2015) for perforated diverticulitis. She has subsequently had reversal of the loop ileostomy (2017). In the ED, she was found to have a tender lump on the right mid abdomen at her ileostomy site. CT scan abd/pelvis were performed which showed right parasagittal ventral hernia with narrowed neck containing short ileal loop segment with proximal jejunum and ileum dilated with air fluid levels and distal ileum decompressed. Reduction of the incisional hernia were attempted by the ED provider and this life underwriter and failed. She has not passed flatus since this morning and last BM was yesterday morning. <Aislinn Shah PA-C - Last Filed: 07/03/22 08:30> Review of Systems Constitutional: Constitutional: Denies chills and Denies fever(s) <Aislinn Shah PA-C - Last Filed: 07/03/22 08:30> ENT: Denies dizziness <BO Darling Last Filed: 07/03/22 08:30> Cardiovascular: Cardiovascular: Denies chest pain, Denies palpitations and Denies dyspnea <BO Darling Last Filed: 07/03/22 08:30> Respiratory: Respiratory: Denies cough and Denies dyspnea <Aislinn Shah PA-C - Last Filed: 07/03/22 08:30> Gastrointestinal: Gastrointestinal: Reports as per HPI, Reports abdominal pain, Reports nausea, Reports vomiting and Denies hematemesis <Aislinn Shah PA-C Last Filed: 07/03/22 08:30> Genitourinary: Genitourinary: Denies hematuria and Denies dysuria <BO Darling Last Filed: 07/03/22 08:30> Integumentary/Breasts: Skin/Breast: Denies rash and Denies jaundice <BO Darling Last Filed: 07/03/22 08:30> Neurologic: Denies dizziness <BO Darling Last Filed: 07/03/22 08:30> Endocrine: Endocrine: Denies palpitations <Aislinn Shah PA-C Last Filed: 07/03/22 08:30> PMFSH Past Medical History Medical History: Medical History Anxiety COVID-19 vaccine series completed Dyslipidemia Hypovitaminosis D Low TSH level Mild recurrent major depression Multinodular goiter Muscle ache Tachycardia <Aislinn Shah PA-C Last Filed: 07/03/22 08:30> Family History Family History: Family History Father Colon cancer Mother Breast cancer Brother Brain cancer Paternal Uncle Lung cancer Sister Breast cancer Substance use disorder Daughter Mental health disorder <Aislinn Shah PA-C Last Filed: 07/03/22 08:30> Surgical History Surgical History: Surgical History H/O colonoscopy History of ankle surgery History of appendectomy History of esophagogastroduodenoscopy (EGD) History of ileostomy History of reversal of ileostomy History of tonsillectomy <BO Darling Last Filed: 07/03/22 08:30> Social History Social History: Social History Household Members: Friend(s) Housing: House Are you a primary primary care nurse to a significant other at home: No Do you presently have visiting nurse or other home services: No Alcohol intake: former Patient Tobacco Use Status: Former Tobacco user Quit Date: 2006 Tobacco use type: Cigarette Smoked in Last 30 Days: No e-Cigarette/Vaping Use: Never Used Second Hand Smoke Exposure: No Use of substances other than those prescribed or required for medical reasons: No Substance Use Type: Marijuana Have you been hit, kicked, punched, or otherwise hurt by someone within the past year? If so, by whom?: No Do you feel safe in your current relationship?: No Current Relationship Is there a partner from a previous relationship who is making you feel unsafe now?: No Are you made to feel afraid or neglected: No Are you DNR?: No Advance Directives: No Advance Directives Information Provided: No Advance Directives on File: No Do you have thoughts of harming others: None Do you have a plan to hurt others: No Plan Recently lost weight without trying: No Eating poorly because of decreased appetite: No Nutrition Risks: No Nutritional Risk Patient : No : No Poor oral hygiene: No service: No Current occupational status: unemployed and disabled Cognitive needs: No Hearing needs: No Vision needs: No <Aislinn Shah PA-C - Last Filed: 07/03/22 08:30> Meds Allergies/Adverse reactions: Allergies Allergy/AdvReac Type Severity Reaction Status Date / Time hydrocodone [From VICODIN] AdvReac Intermediate VOMMITING,DIZZY, Verified 06/23/22 14:39 NAUSEA tramadol [TRAMADOL] AdvReac Intermediate NAUSEA & Verified 06/23/22 14:39 VOMITING oxycodone [From Percocet] AdvReac Mild Formication Verified 06/23/22 14:39 <Aislinn Shah PA-C - Last Filed: 07/03/22 08:30> Active Medications: Current Medications Sodium Chloride (Ns) 1,000 mls @ 100 mls/hr IVCONT .Q10H LEI Cefazolin Sodium/Dextrose (Ancef) 2 gm in 50 mls @ 100 mls/hr IV PREOP ONE Stop: 07/02/22 11:51 Morphine Sulfate (Morphine Sulfate 4 Mg/Ml Cartridge) 4 mg IVPUSH Q4H PRN; Protocol PRN Reason: Pain, Severe (Pain Scale 7-10) Omeprazole (Omeprazole 20 Mg Capsule.Dr) 20 mg PO DAILY@0630 [facility] Ondansetron HCl (Ondansetron Hcl 4 Mg/2 Ml Vial) 4 mg IVPUSH Q8H PRN PRN Reason: Nausea and Vomiting Sodium Chloride (0.9 % Sodium Chloride Flush 3 Ml Syringe) 3 ml IVFLUSH QSHIFT LEI <BO Darling Last Filed: 07/03/22 08:30> Home medications: Home Medications Medication Instructions Recorded Confirmed Last Taken Type omeprazole 20 mg capsule,delayed 20 mg PO DAILY@0630 07/02/22 07/02/22 07/01/22 History release <BO Darling Last Filed: 07/03/22 08:30> Physical Exam Vital Signs: Vital Signs: Last Vital Signs Temp 97.9 F 07/02/22 09:47 Pulse 64 07/02/22 09:47 Resp 18 07/02/22 09:47 BP 144/73 H 07/02/22 09:47 Pulse Ox 98 07/02/22 09:47 O2 Del Method Room Air 07/02/22 09:47 BMI result Body Mass Index 51.2 <BO Darling Last Filed: 07/03/22 08:30> Const: General: alert and other (uncomfortable appearing, in pain) <BO Darling Last Filed: 07/03/22 08:30> Orientation/consciousness: patient oriented x3 <BO Darling Last Filed: 07/03/22 08:30> HEENT: Head: Yes normocephalic and Yes atraumatic <BO Darling Last Filed: 07/03/22 08:30> Resp: Effort & Inspection: normal respiratory effort <BO Darling Last Filed: 07/03/22 08:30> Auscultation: clear to auscultation bilaterally <BO Darling Last Filed: 07/03/22 08:30> Cardio: Rate: regular rate <BO Darling Last Filed: 07/03/22 08:30> GI: Other: lump at right mid abdomen at old ileostomy site; very tender; unreducible, no overlying skin changes <Aislinn BO Shah Melita Last Filed: 07/03/22 08:30> Inspection: No distended, Yes scar and Yes visible herniation <Aislinn Shah PA-C Melita Last Filed: 07/03/22 08:30> Palpation (GI): Soft to palpation and Tenderness to palpation present (GI) <Aislinn Shah PA-C Melita Last Filed: 07/03/22 08:30> Percussion: Yes normal to percussion <Aislinn Shah PA-C Melita Last Filed: 07/03/22 08:30> Abdomen image: 1. 2. previous ileostomy scar with associated lump <Aislinn Shah PA-C Melita Last Filed: 07/03/22 08:30> Skin: General skin exam: other (diaphoretic) <Aislinn Shah PA-C Melita Last Filed: 07/03/22 08:30> Neuro: General: patient oriented x3 and moves all extremities <Aislinn Shah PA-C Melita Last Filed: 07/03/22 08:30> Extrem: General: Yes no clubbing, cyanosis or edema <Aislinn Shah PA-C Melita Last Filed: 07/03/22 08:30> Results Results Labs: Short CBC 07/02/22 Range/Units 06:36 WBC 10.9 H (4.8-10.8) X10*3/uL Hgb 13.2 (12.0-16.0) g/dl Hct 38.5 (37.0-47.0) % Plt Count 426 H (160-400) X10*3/uL BMP 07/02/22 06:36 Sodium 140 Potassium 4.3 Chloride 103 Carbon Dioxide 26 BUN 17 H Creatinine 0.77 Calcium 9.9 D Liver Function 07/02/22 Range/Units 06:36 Total Bilirubin 0.6 (0.0-1.0) mg/dL AST 12 (5-31) U/L ALT 18 (0-31) U/L Alkaline Phosphatase 75 (39-117) U/L Albumin 4.6 (3.5-5.0) g/dL <Aislinn Shah PA-C - Last Filed: 07/03/22 08:30> Abdomen CT scan report/results: report reviewed and image reviewed <Aislinn Shah PA-C - Last Filed: 07/03/22 08:30> Assessment and Plan (1) Incarcerated incisional hernia: Status: Acute <BO Darling Last Filed: 07/03/22 08:30> she had a hx of sigmoid resection, diverting loop ileostomy in 2017 for perf diverticulitis ileostomy was reversed in 2018 she had been doing well but started to have pain on area of ileostomy incision last night with vomitting very tender on area, with severe pain CT shows hernia with a loop of small bowel, appears acutely incarcerated woth a tight neck, signs of PSBO secondary to this loop will proceed with repair, reduction of this hernia in OR with poss. Sb resection, possible mesh, poss laparotomy I had a long discussion with ehr about technique of planned procedure I reviewed the risks including but not limited to bleeding, infections, bowel injury, staple line leak, recurrence, postop pain, inherent risks of general anesthesia She has given consent pt seen and examined independently <Herbert Chowdary MD - Last Filed: 07/03/22 09:44> 67 year old female with hx of low anterior resection with diverting loop ileostomy for perforated diverticulitis, subsequent ileostomy reversal who presents with acute onset of severe right sided abd pain at her previous ileostomy site with painful lump found to have incisional hernia at site with loop of bowel. Attempts at manual hernia reduction have failed. The hernia appears to have small defect. It was therefore recommended to proceed with repair of incarcerated incisional hernia, possible small bowel resection, possible laparotomy. She was added onto the OR schedule for this today. She does have dilated proximal loops however stomach and very proximal small bowel are unremarkable and therefore NGT will be held. Vomiting likely due to severe pain. Lactic acid normal. Patient comfortable with plan and agrees to proceed. <BO Darling Last Filed: 07/03/22 08:30> Time Spent With Patient Time: Total time managing care of this patient today ____ minutes. <BO Darling Last Filed: 07/03/22 08:30> Quality Stroke Does the patient have a stroke diagnosis?: No <Aislinn Shah PA-C - Last Filed: 07/03/22 08:30> VTE Prior VTE?: No <Aislinn Shah PA-C - Last Filed: 07/03/22 08:30> VTE Risk Level:: Surgical - moderate <Aislinn Shah PA-C - Last Filed: 07/03/22 08:30> VTE Device Contraindication: N/A - Device Ordered <Aislinn Shah PA-C - Last Filed: 07/03/22 08:30> VTE Drug Contraindication: N/A - Med Ordered <Aislinn Shah PA-C - Last Filed: 07/03/22 08:30> Procedures Date of Service Date of Service: 07/03/22 <Aislinn Shah PA-C - Last Filed: 07/03/22 08:30>
--- NOTE | 2022-07-02 11:39 | PC.NURSE ---
PT a&ox4 resting, airway open and patent, no obvious signs of distress. Pt reports increased abd pain due to palpation from MD. Dr. Chowdary, surgeon at bedside. Pt aware of plan of care.
--- NOTE | 2022-07-02 11:44 | PC.NURSE ---
RN to RN report given to Inga Motta RN ([facility])
[2022-07-02] MEDS: Morphine Sulfate 4 MG/ML CARTRIDGE IVPUSH ×2 (11:49→18:30)
--- NOTE | 2022-07-02 12:12 | P.CONAN_ITS ---
[facility] Active Problems Active Problems: All Active Problems (Updated 07/02/22 @ 11:46 by Aislinn Shah PA-C) Incarcerated incisional hernia (Acute) Abdominal pain (Acute) SBO (small bowel obstruction) (Acute) Physical exam (Acute) Dyslipidemia (Acute) Ischemic colitis (Acute) GERD (gastroesophageal reflux disease) (Acute) Colitis (Acute) Dysphagia (Acute) Abdominal pain (Acute) Mild recurrent major depression (Acute) Tachycardia (Acute) Low TSH level (Acute) Multinodular goiter (Acute) Muscle ache (Acute) Hypovitaminosis D (Acute) Anxiety (Acute) Past Medical History Medical History Anxiety COVID-19 vaccine series completed Dyslipidemia Hypovitaminosis D Low TSH level Mild recurrent major depression Multinodular goiter Muscle ache Tachycardia Family History Family History Father Colon cancer Mother Breast cancer Brother Brain cancer Paternal Uncle Lung cancer Sister Breast cancer Substance use disorder Daughter Mental health disorder Family history of problems with anesthesia: No Surgical History Surgical History H/O colonoscopy History of ankle surgery History of appendectomy History of esophagogastroduodenoscopy (EGD) History of ileostomy History of reversal of ileostomy History of tonsillectomy History of Problems with Anesthesia: Yes (Ponv. Patient requesting scopalamine patch) Social History Social History Household Members: Significant Other Housing: House Are you a primary customer care voice consultant to a significant other at home: No Do you presently have visiting nurse or other home services: No Alcohol intake: former Patient Tobacco Use Status: Former Tobacco user Quit Date: 2006 Tobacco use type: Cigarette Smoked in Last 30 Days: No e-Cigarette/Vaping Use: Never Used Second Hand Smoke Exposure: No Use of substances other than those prescribed or required for medical reasons: Yes Substance Use Type: Marijuana Advance Directives: No service: No Current occupational status: unemployed and disabled Cognitive needs: No Hearing needs: No Vision needs: No Meds Allergies Allergy/AdvReac Type Severity Reaction Status Date / Time hydrocodone [From VICODIN] AdvReac Intermediate VOMMITING,DIZZY, Verified 06/23/22 14:39 NAUSEA tramadol [TRAMADOL] AdvReac Intermediate NAUSEA & Verified 06/23/22 14:39 VOMITING oxycodone [From Percocet] AdvReac Mild Formication Verified 06/23/22 14:39 Active Medications: Current Medications Sodium Chloride (Ns) 1,000 mls @ 100 mls/hr IVCONT .Q10H LEI Morphine Sulfate (Morphine Sulfate 4 Mg/Ml Cartridge) 4 mg IVPUSH Q4H PRN; Protocol PRN Reason: Pain, Severe (Pain Scale 7-10) Last Admin: 07/02/22 11:49 Dose: 4 mg Omeprazole (Omeprazole 20 Mg Capsule.Dr) 20 mg PO DAILY@0630 [facility] Ondansetron HCl (Ondansetron Hcl 4 Mg/2 Ml Vial) 4 mg IVPUSH Q8H PRN PRN Reason: Nausea and Vomiting Sodium Chloride (0.9 % Sodium Chloride Flush 3 Ml Syringe) 3 ml IVFLUSH QSHIFT LEI Exam Exam Date and Time: July 02, 2022 1212 Height,Weight and Vital Signs: Height 5 ft 2 in Weight 127 kg Last Vital Signs Temp 97.9 F 07/02/22 09:47 Pulse 64 07/02/22 09:47 Resp 18 07/02/22 09:47 BP 144/73 H 07/02/22 09:47 Pulse Ox 98 07/02/22 09:47 O2 Del Method Room Air 07/02/22 09:47 Pertinent Lab Results Pertinent Lab Results: Laboratory Tests 07/02/22 07/02/22 07/02/22 06:36 06:36 08:11 WBC 10.9 H RBC 4.34 Hgb 13.2 Hct 38.5 MCV 88.7 MCH 30.4 MCHC 34.3 RDW 12.9 Plt Count 426 H MPV 9.7 Absolute Nucleated RBC 0.000 Nucleated RBC % (auto) 0.0 Sodium 140 Potassium 4.3 Chloride 103 Carbon Dioxide 26 Anion Gap 15 BUN 17 H Creatinine 0.77 Estim Creat Clear Calc 90.4 Estimated GFR > 60 Random Glucose 126 H Lactic Acid 0.9 Calcium 9.9 D Total Bilirubin 0.6 AST 12 ALT 18 Alkaline Phosphatase 75 Total Protein 6.9 Albumin 4.6 Airway Mallampati Class: III TM Dist: >3cm Neck ROM: Full Assessment and Plan Assessment Anesthesia Assessment: Anesthesia Plan Discussed and Chart Reviewed Final Anesthetic Review Family History of Problems with Anesthesia: No History of Problems with Anesthesia: Yes (Ponv. Patient requesting scopalamine patch) NPO: Yes ASA Class: III and Emergency Final Preanesthetic Review: No Changes in Pt Med Stat, Meds/Allgs Chart Reviewed, Consent Obtained/Reviewed and Anes Risks/Benef Reviewed Patient Risk: Intermediate Procedure Risk: Intermediate Anesthetic Plan Anesthetic Plan: GA Disposition: Standard PACU
[2022-07-02 12:18] LABS: COVID-19 Test Negative (Negative); IDNOW Serial# BCCEAD1C
[2022-07-02] MEDS: Scopolamine 1.5 MG PATCH.TD.3 TRANSDERMA (12:28)
--- NOTE | 2022-07-02 14:46 | P.OP_ITS ---
Operative Note Operative Note Date of Service: 07/02/22 Narrative: Preop diagnosis: Incarcerated incisional hernia, with small bowel obstruction Postop diagnosis: 1. Incarcerated incisional hernia, with loop of small bowel 2. Note of bleeding from inferior epigastric vessels 3. Enterotomy from lysis of adhesions Procedure: Repair and reduction of incarcerated incisional hernia, small bowel resection, control of inferior epigastric vessel bleed Surgeon: Herbert Angelo MD chef assistant: GABBY Shah The patient is a 67-year-old female, admitted because of pain on a previous ileostomy incision along with vomiting. She had a CAT scan showing incarcerated incisional hernia with small bowel loops and small-bowel obstruction. This was on a previous ileostomy site on the right after sigmoid resection for perforated diverticulitis I explained to her that it would be best to proceed with repair, reduction of this hernia with possible small-bowel resection. She understood the technique of this procedure and was aware of the risks, benefits, and alternatives She was brought to the operating room. She was placed supine. A Talbot catheter was inserted. She was under general anesthesia via endotracheal tube. A surgical time-out was done. The abdomen is prepped and draped in the usual sterile fashion I made an incision on the skin transversely along her previous ileostomy scar using blade 15. This was carried down gently, mm by mm with electrocautery, along with gentle blunt dissection as well as use of the Metzenbaum scissors. Eventually was able to visualize the hernia sac. I gently dissected this down to the fascial defect. I apposed the fascial defect and the subcutaneous fat surrounding this. I defined the interface of the sac and the fascia. This allowed me to define the hernia sac and we this completely from the fascial defect using combination of Metzenbaum scissors as well as the cautery. This exposed the entire fascial contents. There was note of a lot of omental fat as well as loop of small bowel that appeared to be completely incarcerated with a very narrow neck. This was not reducible through this very narrow fascial defect. The defect was about 3-4 cm. This loop of small bowel was also markedly distended. These was adherent to the surrounding fascial defect as well with adhesions so we had to do careful this using the Metzenbaum scissors and electrocautery. Eventually, as able to expose the entire fascia completely but there was note of a small enterotomy. There was no no spillage of enteric contents. I closed this with a running Vicryl 3-0 stitch, with imbrication using seromuscular Vicryl 2-0 in interrupted sutures. After repair, I noticed that there was note of accompanying hematoma, and ecchymosis surrounding this area. Furthermore, this apparently some narrowing of the segment that was repaired. I therefore decided to resect this area. I was able to pull in a flank of small-bowel loops proximally and distally. Rated mesenteric windows on each side of the enterotomy. The VIKTORIYA 60 mm lip staplers to divide this proximal and distally. I completed transection of the mesentery with the LigaSure. I aligned the proximal and distal transected loops to create our [id number] anastomosis. I opened up the apex of each staple line to enter the lumen. I positioned each arm of the VIKTORIYA 60 mm stapler on the anti mesenteric border of each different and apparent loop. Once we were certain that there was no mesentery or bowel loops trapped between the staplers, I fired this to create our anastomosis. I complet ed the anastomosis by closing the enterotomy with a TA 60 mm stapler. I applied a seromuscular stitch at the crotch of the staple line to release any tension. Because of the very narrow neck, we could not reduce this hernia and omentum. I had to enlarge the incision by dividing the lateral aspect of the defect with electrocautery. We noticed significant bleeding from division of the muscle. W aundrea controlled this initially with [id number] Dexon 3-0 sutures. However we noted that there was a hematoma on the rectal sheath underneath and it appeared that the bleeding was likely from inferior epigastric gastric vessels on the lower edge of the transected rectus muscle which would have been transected during division of the muscle to enlarge the defect. We could noticed that there was persistent bleeding from the edge of the rectus muscle, but it appeared that the vessel had retracted. I applied figure-eight sutures through the peritoneal side to attempt to control this but we noticed continued oozing. I therefore had to do a figure-eight transfascial stitch inferior to the route of the inferior epigastric vessels. Eventually, it appeared that we had good hemostasis. There was persistent oozing from divided muscle and exposed peritoneum on the underside of the rectus along the incision but there was no active brisk bleeding anymore from the area of the epigastric vessels. There was note of small rectus sheath hematoma as well and this had been remained stable. We observed this area for about 5 minutes to make sure that we had adequate hemostasis. Once hemostasis was confirmed, proceeded to then irrigate the area. I brought up the site of the anastomosis for inspection into the field. The staple lines appeared intact. The anastomosis did not appear to have any ischemia and the bowel loops appeared healthy. I replaced this bowel loops back into the peritoneal cavity. I observed for further mass stasis. Once adequate hemostasis was confirmed, I proceeded to then closed the fascial defect with a running in 1 stitch. It is noted that the inferior aspect of the defect appeared tenuous so she may be at risk for current hernia on this area. The subcutaneous reapposed with Dexon 3-0 interrupted sutures. Skin closure was achieved with skin prema. The area was infiltrated with Marcaine 0.5% for postop analgesia The patient tolerated procedure well. There were made without complications. Initial and final counts of sponges and instruments were correct. Estimated blood loss was about 400 cc from the inferior epigastric vessel. Patient was extubated without difficulty and transferred to the recovery room with stable vital signs
[2022-07-02] MEDS: Acetaminophen 1,000 MG/100 ML PIGGYBACK 400 MG IV ×2 (16:35→22:54)
--- NOTE | 2022-07-02 17:07 | PM.EVENT ---
Event Note Date of Service: 07/02/22 Event Note: seen postop asleep seems to have good pain control stable VS good UO continue pain mgt sips of clear tonight pradip Mejia, livan Oconnell updated Time Spent With Patient Time: Total time managing care of this patient today ____ minutes.
[2022-07-02] MEDS: 0.9 % Sodium Chloride 1,000 ML 100 ML IVCONT (17:20)
--- NOTE | 2022-07-02 19:27 | PHA.MEDREC ---
Pharmacy Consult ? Medication Reconciliation Pharmacy has completed the medication reconciliation.
[2022-07-03] MEDS: Morphine Sulfate 4 MG/ML CARTRIDGE IVPUSH ×3 (02:24→20:34)
[2022-07-03] MEDS: 0.9 % Sodium Chloride 1,000 ML 100 ML IVCONT (02:27)
[2022-07-03 04:00] VITALS: BP 114/62; PULSE 74; RESP 18; TEMP 36.8; O2SAT 97
[2022-07-03] MEDS: Omeprazole 20 MG CAPSULE.DR PO (05:00)
[2022-07-03] MEDS: Acetaminophen 1,000 MG/100 ML PIGGYBACK 400 MG IV ×4 (05:02→22:49)
[2022-07-03 06:40] LABS: MANUAL DIFF FLAG NO
[2022-07-03 06:45] LABS: Basophils Percent Auto 0.1 % (0-2); Eosinophils Percent Auto 0.2 % (0-4); Hematocrit 27.1 % (37.0-47.0); Hemoglobin 9.1 g/dl (12.0-16.0); Imm Gran Abs Auto 0.04 X10*3/uL (0.00-0.03); Imm Gran Pct Auto 0.4 % (0.0-0.4); Lymphocytes Absolute Auto 1.3 X10*3/uL (1.2-4.9); Lymphocytes Percent Auto 13.2 % (20-40); Mean Corpuscular HGB Conc 33.6 g/dl (31.0-35.0); Mean Corpuscular Hemoglobin 30.5 pg (27.0-33.0); Mean Corpuscular Volume 90.9 fL (80.0-98.0); Mean Platelet Volume 9.7 fL (9.4-12.3); Monocytes Absolute Auto 0.9 X10*3/uL (0.1-1.2); Monocytes Percent Auto 9.4 % (2-11); Neutrophils Absolute Auto 7.7 x10*3/uL (2.0-8.3); Neutrophils Percent Auto 76.7 % (45-73); Platelet Count 300 X10*3/uL (160-400); Red Blood Count 2.98 X10*6/uL (4.20-5.50); Red Cell Distribution Width 13.1 % (11.0-16.0)
[2022-07-03 06:49] LABS: INTERNATIONAL NORM RATIO 1.1 (0.9-1.1); Prothrombin Time 12.6 SEC (10.0-13.1)
--- NOTE | 2022-07-03 07:07 | PC.NURSE ---
pt comfortable with tylenol iv only for pain. abdominal dsg d/i using inspr. with encouragements
[2022-07-03 07:21] LABS: Anion Gap 13 (12-20); Blood Urea Nitrogen 14 mg/dL (9-16); Carbon Dioxide 23 mmol/L (22-29); Chloride 107 mmol/L (96-108); Creatinine Clr Calc Pharmacy 72.1; Estimated Glomerular Filt Rate > 60; Glucose Fasting 118 mg/dL (60-99); Potassium 4.1 mmol/L (3.3-5.1); Sodium 139 mmol/L (135-145)
--- NOTE | 2022-07-03 07:39 | P.PNGS_ITS ---
Subjective Subjective Date of Service: 07/03/22 <Aislinn Shah PA-C - Last Filed: 07/03/22 07:44> 07/03/22 <Herbert Chowdary MD - Last Filed: 07/03/22 09:45> Interval history: Feels better this morning. Has some incisional pain with movement but has not been OOB. Denies nausea. Has been having ice chips. Denies flatus. <Aislinn Shah PA-C - Last Filed: 07/03/22 07:44> Physical Exam Vital Signs: Vital Signs: Last Vital Signs Temp 98.3 F 07/03/22 04:00 Pulse 74 07/03/22 04:00 Resp 18 07/03/22 04:00 BP 114/62 07/03/22 04:00 Pulse Ox 97 07/03/22 04:00 O2 Del Method Nasal Cannula 07/03/22 04:00 O2 Flow Rate 2 07/03/22 04:00 BMI result Body Mass Index 24.5 <Aislinn Shah PA-C - Last Filed: 07/03/22 07:44> Const: General: comfortable, no acute distress and alert <Aislinn Shah PA-C - Last Filed: 07/03/22 07:44> Orientation/consciousness: patient oriented x3 <BO Darling Last Filed: 07/03/22 07:44> Resp: Effort & Inspection: normal respiratory effort <Aislinn Shah PA-C - Last Filed: 07/03/22 07:44> GI: Inspection: No distended and Yes incision (dressing c/d/i, no surrounding ecchymosis) <Aislinn Shah PA-C - Last Filed: 07/03/22 07:44> Palpation (GI): Soft to palpation, Tenderness to palpation present (GI) ( incisional), no guarding and not rigid <BO Darling Last Filed: 07/03/22 07:44> Percussion: Yes normal to percussion <BO Darling Last Filed: 07/03/22 07:44> Skin: Other: warm and dry <BO Darling Last Filed: 07/03/22 07:44> General skin exam: no rashes or lesions noted <Aislinn Shah PA-C - Last Filed: 07/03/22 07:44> Neuro: General: patient oriented x3 and moves all extremities <Aislinn Shah PA-C - Last Filed: 07/03/22 07:44> Objective Data Active Medications Hydromorphone HCl (Hydromorphone Hcl 2 Mg Tablet) 2 mg PO Q4H PRN PRN Reason: Pain, Moderate (Pain Scale 4-6 Sodium Chloride (Ns) 1,000 mls @ 100 mls/hr IVCONT .Q10H [facility] Last Admin: 07/03/22 02:27 Dose: 100 mls/hr Documented By: FARNAZ Acetaminophen (Ofirmev) 1,000 mg in 100 mls @ 400 mls/hr IV Q6H [facility] Last Infusion: 07/03/22 05:19 Dose: 0 mls/hr Documented By: KUMAR Morphine Sulfate (Morphine Sulfate 4 Mg/Ml Cartridge) 4 mg IVPUSH Q4H PRN; Protocol PRN Reason: Pain, Severe (Pain Scale 7-10) Last Admin: 07/03/22 02:24 Dose: 4 mg Documented By: FARNAZ Omeprazole (Omeprazole 20 Mg Capsule.Dr) 20 mg PO DAILY@0630 [facility] Last Admin: 07/03/22 05:00 Dose: 20 mg Documented By: KUMAR Ondansetron HCl (Ondansetron Hcl 4 Mg/2 Ml Vial) 4 mg IVPUSH Q8H PRN PRN Reason: Nausea and Vomiting Sodium Chloride (0.9 % Sodium Chloride Flush 3 Ml Syringe) 3 ml IVFLUSH QSHIFT [facility] Last Admin: 07/03/22 02:02 Dose: Not Given Documented By: KUMAR Non-Admin Reason: IV Running <Aislinn Shah PA-C - Last Filed: 07/03/22 07:44> Labs CBC & Chem 7: 07/03/22 06:09 07/03/22 06:09 <Aislinn Shah PA-C - Last Filed: 07/03/22 07:44> Labs: Laboratory Results - last 24 hr 07/02/22 07/02/22 07/02/22 06:36 06:36 08:11 MCV 88.7 MCH 30.4 MCHC 34.3 RDW 12.9 Plt Count 426 H MPV 9.7 Immature Gran % (Auto) Neut % (Auto) Lymph % (Auto) Karnes % (Auto) Eos % (Auto) Baso % (Auto) Lymph # (Auto) Karnes # (Auto) Eos # (Auto) Baso # (Auto) Abs Immat Gran (auto) Absolute Neuts (auto) Absolute Nucleated RBC 0.000 Nucleated RBC % (auto) 0.0 PT INR Anion Gap 15 Estim Creat Clear Calc 90.4 Estimated GFR > 60 Random Glucose 126 H Fasting Glucose Lactic Acid 0.9 Calcium 9.9 D Total Bilirubin 0.6 AST 12 ALT 18 Alkaline Phosphatase 75 Total Protein 6.9 Albumin 4.6 COVID-19 (ONI) COVID-New Relic Com 07/02/22 07/03/22 07/03/22 11:42 06:09 06:09 MCV 90.9 MCH 30.5 MCHC 33.6 RDW 13.1 Plt Count 300 D MPV 9.7 Immature Gran % (Auto) 0.4 Neut % (Auto) 76.7 H Lymph % (Auto) 13.2 L Karnes % (Auto) 9.4 Eos % (Auto) 0.2 Baso % (Auto) 0.1 Lymph # (Auto) 1.3 Karnes # (Auto) 0.9 Eos # (Auto) 0.0 Baso # (Auto) 0.0 Abs Immat Gran (auto) 0.04 H Absolute Neuts (auto) 7.7 Absolute Nucleated RBC 0.000 Nucleated RBC % (auto) 0.0 PT 12.6 INR 1.1 Anion Gap Estim Creat Clear Calc Estimated GFR Random Glucose Fasting Glucose Lactic Acid Calcium Total Bilirubin AST ALT Alkaline Phosphatase Total Protein Albumin COVID-19 (ONI) Negative COVID-19 Clin Com See Note 07/03/22 06:09 MCV MCH MCHC RDW Plt Count MPV Immature Gran % (Auto) Neut % (Auto) Lymph % (Auto) Karnes % (Auto) Eos % (Auto) Baso % (Auto) Lymph # (Auto) Karnes # (Auto) Eos # (Auto) Baso # (Auto) Abs Immat Gran (auto) Absolute Neuts (auto) Absolute Nucleated RBC Nucleated RBC % (auto) PT INR Anion Gap 13 Estim Creat Clear Calc 72.1 Estimated GFR > 60 Random Glucose Fasting Glucose 118 H Lactic Acid Calcium 8.0 L D Total Bilirubin AST ALT Alkaline Phosphatase Total Protein Albumin COVID-19 (ONI) COVID-19 Clin Com <Aislinn Shah PA-C - Last Filed: 07/03/22 07:44> Procedures Date of Service Date of Service: 07/03/22 <Aislinn Shah PA-C - Last Filed: 07/03/22 07:44> Progress Note: A&P Assessment and plan (1) Incarcerated incisional hernia: Status: Acute <Aislinn Shah PA-C - Last Filed: 07/03/22 07:44> Assessment and Plan: Status post repair of incarcerated hernia with small-bowel resection, control of bleeding inferior epigastric vessels She states he feels much better compared to yesterday preop No events overnight Appears to have good control Dressings dry Abdomen soft Follow H&H Hemodynamically stable Appears to be doing well postop Seen examined independently -agree with GABBY Shah <Herbert Chowdary MD - Last Filed: 07/03/22 09:45> (2) SBO (small bowel obstruction): Status: Acute <Aislinn Shah PA-C - Last Filed: 07/03/22 07:44> Assessment and Plan: 67 year old female admitted with incarcerated incisional hernia with SBO at old ileostomy site. Now POD #1 s/p repair and reduction of incarcerated incisional hernia, small bowel resection, control of inferior epigastric vessel bleed. Doing fairly well post this morning. Pain adequately controlled. VSS. Abd exam with appropriate post op tenderness, dressing c/d/i. H/h slightly drifted down this morning from 13.1 to 9.2. Will repeat H/H later this morning. If no further decline, will advance to clear liquids. Discontinue carreon. Cont IVF. Encouraged OOB/ambulation of halls today. Patient comfortable with plan. <Aislinn Shah PA-C - Last Filed: 07/03/22 07:44> Time Spent With Patient Time: Total time managing care of this patient today ____ minutes. <Aislinn Shah PA-C - Last Filed: 07/03/22 07:44> Quality Stroke Does the patient have a stroke diagnosis?: No <Aislinn Shah PA-C - Last Filed: 07/03/22 07:44> VTE Prior VTE?: No <Aislinn Shah PA-C - Last Filed: 07/03/22 07:44> VTE Risk Level:: Surgical - moderate <Aislinn Shah PA-C - Last Filed: 07/03/22 07:44> VTE Device Contraindication: N/A - Device Ordered <Aislinn Shah PA-C - Last Filed: 07/03/22 07:44> VTE Drug Contraindication: N/A - Med Ordered <Aislinn Shah PA-C - Last Filed: 07/03/22 07:44>
[2022-07-03 07:43] VITALS: BP 109/63; PULSE 68; RESP 16; TEMP 37.1; O2SAT 98
[2022-07-03 07:48] VITALS: BP 120/63; PULSE 69; RESP 18; TEMP 36.9; O2SAT 97
--- NOTE | 2022-07-03 08:59 | HO.POSTANES ---
Post Anesthesia Evaluation Post Anesthesia Evaluation Vital Signs: Vital Signs Temp Pulse Resp BP Pulse Ox O2 Del Method O2 Flow Rate 07/03/22 07:48 98.5 F 69 18 120/63 97 Nasal Cannula 2 07/03/22 07:43 98.8 F 68 16 109/63 98 Nasal Cannula 2 07/03/22 04:00 98.3 F 74 18 114/62 97 Nasal Cannula 2 Anesthesia: General Endotracheal-GETA Mental Status: Awake Pain Control: Satisfactory Nausea/Vomiting: None Hydration: Adequate Anesthesia-Related Issues: No Anes. Related Issues Comments: Still on 2L nasal cannula, being weaned as tolerated .
--- NOTE | 2022-07-03 10:49 | MHC.CM.PN ---
PT REPORTS SHE LIVES WITH HER S/O AND IS INDEPENDENT WITH CARE SHE DENIES USE OF DME OR HOME SERVICES PT HAS A HCP ON FILE SHE IS COVID VAX X 4 PCP: MYCHAL RUSSO IMM DELIVERED CURRENT DC PLAN IS HOME NO SERVICES PT TO ARRANGE TRANSPORT
[2022-07-03 11:50] VITALS: BP 116/65; PULSE 74; RESP 18; TEMP 37.3; O2SAT 97
[2022-07-03 12:00] LABS: Hematocrit 26.6 % (37.0-47.0); Hemoglobin 8.9 g/dl (12.0-16.0)
[2022-07-03] MEDS: 0.9 % Sodium Chloride 1,000 ML 80 ML IVCONT (12:55)
--- NOTE | 2022-07-03 14:13 | PM.EVENT ---
Event Note Date of Service: 07/03/22 Event Note: Seen on afternoon rounds Adequate pain control Sitting on recliner Stable vital signs Hemoglobin drifted to 8.9 Repeat tomorrow Abdomen soft and benign Pain management On clear liquids Time Spent With Patient Time: Total time managing care of this patient today ____ minutes.
[2022-07-03 16:20] VITALS: BP 124/60; PULSE 77; RESP 18; TEMP 36.6; O2SAT 97
[2022-07-03 20:32] VITALS: BP 127/60; PULSE 72; RESP 16; TEMP 36.5; O2SAT 94
[2022-07-04] MEDS: 0.9 % Sodium Chloride 1,000 ML 80 ML IVCONT ×3 (01:05→23:06)
[2022-07-04] MEDS: ondansetron HCL 4 MG/2 ML VIAL IVPUSH ×2 (03:36→20:14)
[2022-07-04] MEDS: Morphine Sulfate 4 MG/ML CARTRIDGE IVPUSH ×2 (03:37→15:40)
[2022-07-04 04:00] VITALS: BP 140/77; PULSE 73; RESP 14; TEMP 36.3; O2SAT 96
[2022-07-04] MEDS: Acetaminophen 1,000 MG/100 ML PIGGYBACK 400 MG IV ×4 (05:08→23:06)
[2022-07-04] MEDS: Omeprazole 20 MG CAPSULE.DR PO (05:52)
[2022-07-04 06:02] LABS: MANUAL DIFF FLAG NO
[2022-07-04 06:06] LABS: Basophils Percent Auto 0.2 % (0-2); Eosinophils Absolute Auto 0.1 X10*3/uL (0.0-0.4); Eosinophils Percent Auto 1.6 % (0-4); Hematocrit 24.4 % (37.0-47.0); Hemoglobin 8.1 g/dl (12.0-16.0); Imm Gran Abs Auto 0.05 X10*3/uL (0.00-0.03); Imm Gran Pct Auto 0.6 % (0.0-0.4); Lymphocytes Absolute Auto 1.5 X10*3/uL (1.2-4.9); Lymphocytes Percent Auto 17.5 % (20-40); Mean Corpuscular HGB Conc 33.2 g/dl (31.0-35.0); Mean Corpuscular Hemoglobin 30.9 pg (27.0-33.0); Mean Corpuscular Volume 93.1 fL (80.0-98.0); Mean Platelet Volume 9.9 fL (9.4-12.3); Monocytes Absolute Auto 0.5 X10*3/uL (0.1-1.2); Neutrophils Absolute Auto 6.2 x10*3/uL (2.0-8.3); Neutrophils Percent Auto 74.1 % (45-73); Platelet Count 235 X10*3/uL (160-400); Red Blood Count 2.62 X10*6/uL (4.20-5.50); Red Cell Distribution Width 13.1 % (11.0-16.0); White Blood Count 8.3 X10*3/uL (4.8-10.8)
[2022-07-04 07:38] VITALS: BP 127/61; PULSE 84; RESP 18; TEMP 36.8; O2SAT 92
[2022-07-04] MEDS: Metoclopramide HCl 10 MG/2 ML VIAL IVPUSH (08:55)
[2022-07-04 15:13] VITALS: BP 130/67; PULSE 79; RESP 16; TEMP 37.1; O2SAT 94
[2022-07-04 19:42] VITALS: BP 137/64; PULSE 88; RESP 16; TEMP 37.7; O2SAT 93
[2022-07-05 03:45] VITALS: BP 145/71; PULSE 80; RESP 16; TEMP 36.7; O2SAT 98
[2022-07-05] MEDS: ondansetron HCL 4 MG/2 ML VIAL IVPUSH ×2 (03:51→20:40)
[2022-07-05] MEDS: Acetaminophen 1,000 MG/100 ML PIGGYBACK 400 MG IV ×3 (03:52→21:07)
[2022-07-05] MEDS: Omeprazole 20 MG CAPSULE.DR PO (06:09)
[2022-07-05] MEDS: Morphine Sulfate 4 MG/ML CARTRIDGE IVPUSH (07:45)
[2022-07-05 07:58] VITALS: BP 128/72; PULSE 72; RESP 16; TEMP 36.8; O2SAT 95
--- NOTE | 2022-07-05 07:58 | PM.PNGS ---
Subjective Subjective Date of Service: 07/05/22 Interval history: patient complaining of incisional pain which is improving. Tolerating full liquids. Had a small bowel movement yesterday. Wishes to have her diet advanced. Physical Exam Vital Signs: Vital Signs: Last Vital Signs Temp 98.1 F 07/05/22 03:45 Pulse 80 07/05/22 03:45 Resp 16 07/05/22 03:45 BP 145/71 H 07/05/22 03:45 Pulse Ox 98 07/05/22 03:45 O2 Del Method Room Air 07/05/22 03:45 O2 Flow Rate 2 07/03/22 11:50 BMI result Body Mass Index 24.5 GI: Other: Abdomen soft. Wound clean dry and intact. Patient also is wearing abdominal binder. Objective Data Active Medications Hydromorphone HCl (Hydromorphone Hcl 2 Mg Tablet) 2 mg PO Q4H PRN PRN Reason: Pain, Moderate (Pain Scale 4-6 Sodium Chloride (Ns) 1,000 mls @ 80 mls/hr IVCONT .[id number] [facility] Last Admin: 07/04/22 23:06 Dose: 80 mls/hr Documented By: TISH Acetaminophen (Ofirmev) 1,000 mg in 100 mls @ 400 mls/hr IV Q6H [facility] Last Infusion: 07/05/22 04:10 Dose: 0 mls/hr Documented By: TISH Metoclopramide HCl (Metoclopramide Hcl 10 Mg/2 Ml Vial) 10 mg IVPUSH Q8H PRN PRN Reason: Nausea Last Admin: 07/04/22 08:55 Dose: 10 mg Documented By: JUSTINE Morphine Sulfate (Morphine Sulfate 4 Mg/Ml Cartridge) 4 mg IVPUSH Q4H PRN; Protocol PRN Reason: Pain, Severe (Pain Scale 7-10) Last Admin: 07/05/22 07:45 Dose: 4 mg Documented By: JUSTINE Omeprazole (Omeprazole 20 Mg Capsule.Dr) 20 mg PO DAILY@0630 [facility] Last Admin: 07/05/22 06:09 Dose: 20 mg Documented By: TISH Ondansetron HCl (Ondansetron Hcl 4 Mg/2 Ml Vial) 4 mg IVPUSH Q8H PRN PRN Reason: Nausea and Vomiting Last Admin: 07/05/22 03:51 Dose: 4 mg Documented By: TISH Sodium Chloride (0.9 % Sodium Chloride Flush 3 Ml Syringe) 3 ml IVFLUSH [facility] Last Admin: 07/05/22 06:59 Dose: Not Given Documented By: JUSTINE Non-Admin Reason: IV Running Labs 07/04/22 05:36 07/03/22 06:09 Microbiology Microbiology Results: Microbiology 07/02/22 06:38 Blood Culture - Preliminary Blood - Venous No growth after 48 hours. 07/02/22 06:38 Blood Culture - Preliminary Blood - Venous No growth after 48 hours. Procedures Date of Service Date of Service: 07/05/22 Progress Note: A&P Assessment and plan (1) Incarcerated incisional hernia: Status: Acute Plan Continue current therapy, out of bed / ambulate, incentive spirometry, ice pack to wound, advanced diet as tolerated. Discharge planning soon. Time Spent With Patient Time: Total time managing care of this patient today ____ minutes. Quality Stroke Does the patient have a stroke diagnosis?: No VTE Prior VTE?: No VTE Risk Level:: Surgical - moderate VTE Device Contraindication: N/A - Device Ordered VTE Drug Contraindication: N/A - Med Ordered
[2022-07-05] MEDS: 0.9 % Sodium Chloride 1,000 ML 80 ML IVCONT (10:26)
[2022-07-05] MEDS: Metoclopramide HCl 10 MG/2 ML VIAL IVPUSH (11:26)
[2022-07-05 15:00] VITALS: BP 120/63; PULSE 101; RESP 18; TEMP 36.4; O2SAT 94
--- NOTE | 2022-07-05 17:44 | PC.NURSE ---
This nurse Spoke with Dr Kumar this morning, per telephone order to advance diet to Full liquid diet and continue to advance as tolerated thereafter, Pt tolerated breakfast, lunch, and dinner with Full liquid diet, per Dr Kumar's original order diet was advanced to regular.
[2022-07-05 20:00] VITALS: BP 154/83; PULSE 87; RESP 16; TEMP 36.3; O2SAT 98
[2022-07-06] MEDS: Acetaminophen 1,000 MG/100 ML PIGGYBACK 400 MG IV ×4 (03:32→20:33)
[2022-07-06] MEDS: Metoclopramide HCl 10 MG/2 ML VIAL IVPUSH (03:39)
[2022-07-06 04:00] VITALS: BP 155/77; PULSE 82; RESP 16; TEMP 36.7; O2SAT 92
[2022-07-06] MEDS: Omeprazole 20 MG CAPSULE.DR PO (06:01)
--- NOTE | 2022-07-06 07:54 | PM.PNGS ---
Subjective Subjective Date of Service: 07/06/22 Interval history: says she feels well tolerating diet well states she thinks Morphine makes her a little nauseous, prefers IV tylenol Physical Exam Vital Signs: Vital Signs: Last Vital Signs Temp 98.1 F 07/06/22 04:00 Pulse 82 07/06/22 04:00 Resp 16 07/06/22 04:00 BP 155/77 H 07/06/22 04:00 Pulse Ox 92 07/06/22 04:00 O2 Del Method Venturi Mask 07/06/22 04:00 O2 Flow Rate 2 07/03/22 11:50 BMI result Body Mass Index 24.5 Const: General: comfortable and no acute distress Resp: Effort & Inspection: normal respiratory effort Cardio: Rate: regular rate GI: Other: incision clean and dry, ecchymoses noted Palpation (GI): Soft to palpation, not firm and no guarding Objective Data Active Medications Hydromorphone HCl (Hydromorphone Hcl 2 Mg Tablet) 2 mg PO Q4H PRN PRN Reason: Pain, Moderate (Pain Scale 4-6 Acetaminophen (Ofirmev) 1,000 mg in 100 mls @ 400 mls/hr IV Q6H [facility] Last Infusion: 07/06/22 03:51 Dose: 0 mls/hr Documented By: PERNELL Metoclopramide HCl (Metoclopramide Hcl 10 Mg/2 Ml Vial) 10 mg IVPUSH Q8H PRN PRN Reason: Nausea Last Admin: 07/06/22 03:39 Dose: 10 mg Documented By: PERNELL Morphine Sulfate (Morphine Sulfate 4 Mg/Ml Cartridge) 4 mg IVPUSH Q4H PRN; Protocol PRN Reason: Pain, Severe (Pain Scale 7-10) Last Admin: 07/05/22 07:45 Dose: 4 mg Documented By: JUSTINE Omeprazole (Omeprazole 20 Mg Capsule.Dr) 20 mg PO DAILY@0630 [facility] Last Admin: 07/06/22 06:01 Dose: 20 mg Documented By: PERNELL Ondansetron HCl (Ondansetron Hcl 4 Mg/2 Ml Vial) 4 mg IVPUSH Q8H PRN PRN Reason: Nausea and Vomiting Last Admin: 07/05/22 20:40 Dose: 4 mg Documented By: PERNELL Sodium Chloride (0.9 % Sodium Chloride Flush 3 Ml Syringe) 3 ml IVFLUSH QSHIFT [facility] Last Admin: 07/06/22 00:24 Dose: Not Given Documented By: PERNELL Non-Admin Reason: IV Running Labs 07/04/22 05:36 07/03/22 06:09 Procedures Date of Service Date of Service: 07/06/22 Progress Note: A&P Assessment and plan (1) Incarcerated incisional hernia: Status: Acute Assessment and Plan: S/P repair of incarcerated incisional hernia, SB resection looks well appears comfortable Hg was low - repeat today diet as tolerated stable VS has been ambulating not on subQ heparin for DVT prophylaxis due to drift in Hg, bleeding from inferior epigastric vessels intraop Time Spent With Patient Time: Total time managing care of this patient today ____ minutes. Quality Stroke Does the patient have a stroke diagnosis?: No VTE Prior VTE?: No VTE Risk Level:: Surgical - moderate VTE Device Contraindication: N/A - Device Ordered VTE Drug Contraindication: N/A - Med Ordered
[2022-07-06 08:00] VITALS: BP 143/83; PULSE 75; RESP 17; TEMP 36.6; O2SAT 95
[2022-07-06] MEDS: 0.9 % Sodium Chloride Flush 3 ML SYRINGE IVFLUSH ×3 (08:43→20:34)
[2022-07-06 09:20] LABS: Hematocrit 28.3 % (37.0-47.0); Hemoglobin 9.6 g/dl (12.0-16.0)
--- NOTE | 2022-07-06 14:47 | PM.EVENT ---
Event Note Date of Service: 07/06/22 Event Note: Seen on afternoon rounds She says she is comfortable Tolerating diet well Good GI function Abdomen soft Hemoglobin now up Looks well Possible DC home tomorrow Time Spent With Patient Time: Total time managing care of this patient today ____ minutes.
--- NOTE | 2022-07-06 15:11 | MHC.CM.PN ---
per rounds pt not ready for dc at [facility] time dc plan remains home no servceis
[2022-07-06 15:56] VITALS: BP 135/77; PULSE 95; RESP 17; TEMP 36.4; O2SAT 94
[2022-07-06 20:35] VITALS: BP 142/76; PULSE 87; RESP 16; TEMP 37.1; O2SAT 94
[2022-07-07] MEDS: Acetaminophen 1,000 MG/100 ML PIGGYBACK 400 MG IV ×2 (02:51→08:49)
[2022-07-07 04:00] VITALS: BP 133/67; PULSE 81; RESP 16; TEMP 37.1; O2SAT 95
[2022-07-07] MEDS: Omeprazole 20 MG CAPSULE.DR PO (06:06)
[2022-07-07 08:00] VITALS: BP 142/82; PULSE 74; RESP 18; TEMP 36.7; O2SAT 97
--- NOTE | 2022-07-07 08:34 | PM.PNGS ---
Subjective Subjective Date of Service: 07/07/22 <Aislinn Shah PA-C - Last Filed: 07/07/22 08:34> 07/07/22 <Herbert Chowdary MD - Last Filed: 07/07/22 10:46> Interval history: Feels well this morning. Has only been taking the tylenol for pain with good effect. Tolerating solid diet. Passing flatus but no BM yet. OOB and ambulating without difficulty. Wants to go home. <Aislinn Shah PA-C - Last Filed: 07/07/22 08:34> Physical Exam Vital Signs: Vital Signs: Last Vital Signs Temp 98.1 F 07/07/22 08:00 Pulse 74 07/07/22 08:00 Resp 18 07/07/22 08:00 BP 142/82 H 07/07/22 08:00 Pulse Ox 97 07/07/22 08:00 O2 Del Method Room Air 07/07/22 08:00 O2 Flow Rate 2 07/03/22 11:50 BMI result Body Mass Index 24.5 <Aislinn Shah PA-C - Last Filed: 07/07/22 08:34> Const: General: comfortable, no acute distress and alert <BO Darling Last Filed: 07/07/22 08:34> Orientation/consciousness: patient oriented x3 <BO Darling Last Filed: 07/07/22 08:34> Resp: Effort & Inspection: normal respiratory effort <BO Darling Last Filed: 07/07/22 08:34> GI: Inspection: No distended and Yes incision (dressing c/d/i; surrounding ecchymosis) <Aislinn Shah PA-C - Last Filed: 07/07/22 08:34> Palpation (GI): Soft to palpation, Tenderness to palpation present (GI) (mild incisional), no guarding and not rigid <BO Darling Last Filed: 07/07/22 08:34> Percussion: Yes normal to percussion <BO Darling Last Filed: 07/07/22 08:34> Skin: General skin exam: no rashes or lesions noted <Aislinn Shah PA-C - Last Filed: 07/07/22 08:34> Neuro: General: patient oriented x3 and moves all extremities <Aislinn Shah PA-C - Last Filed: 07/07/22 08:34> Objective Data Active Medications Hydromorphone HCl (Hydromorphone Hcl 2 Mg Tablet) 2 mg PO Q4H PRN PRN Reason: Pain, Moderate (Pain Scale 4-6 Acetaminophen (Ofirmev) 1,000 mg in 100 mls @ 400 mls/hr IV Q6H [facility] Last Infusion: 07/07/22 03:08 Dose: 0 mls/hr Documented By: PERNELL Metoclopramide HCl (Metoclopramide Hcl 10 Mg/2 Ml Vial) 10 mg IVPUSH Q8H PRN PRN Reason: Nausea Last Admin: 07/06/22 03:39 Dose: 10 mg Documented By: PERNELL Morphine Sulfate (Morphine Sulfate 4 Mg/Ml Cartridge) 4 mg IVPUSH Q4H PRN; Protocol PRN Reason: Pain, Severe (Pain Scale 7-10) Last Admin: 07/05/22 07:45 Dose: 4 mg Documented By: JUSTINE Omeprazole (Omeprazole 20 Mg Capsule.Dr) 20 mg PO DAILY@0630 [facility] Last Admin: 07/07/22 06:06 Dose: 20 mg Documented By: PERNELL Ondansetron HCl (Ondansetron Hcl 4 Mg/2 Ml Vial) 4 mg IVPUSH Q8H PRN PRN Reason: Nausea and Vomiting Last Admin: 07/05/22 20:40 Dose: 4 mg Documented By: PERNELL Sodium Chloride (0.9 % Sodium Chloride Flush 3 Ml Syringe) [facility] Last Admin: 07/06/22 20:34 Dose: 3 ml Documented By: PERNELL <Aislinn Shah PA-C - Last Filed: 07/07/22 08:34> Labs CBC & Chem 7: 07/06/22 08:55 07/03/22 06:09 <Aislinn Shah PA-C - Last Filed: 07/07/22 08:34> Procedures Date of Service Date of Service: 07/07/22 <Herbert Chowdary MD - Last Filed: 07/07/22 10:46> Progress Note: A&P Assessment and plan (1) Incarcerated incisional hernia: Status: Acute <Aislinn Shah PA-C - Last Filed: 07/07/22 08:34> Assessment and Plan: S/P repair, reduction of incarcerated hernia, SB resection tolerating diet good PO intake passing flatus abd soft ecchymoses around repair site looks well ok to dc home no lifting/strenuous activities seen and examined independently - agree with GABBY Shah <Herbert Chowdary MD - Last Filed: 07/07/22 10:46> (2) SBO (small bowel obstruction): Status: Acute <Aislinn Shah PA-C - Last Filed: 07/07/22 08:34> Assessment and Plan: 67 year old female admitted for incarcerated incisional hernia, SBO now s/p repair of incarcerated incisional hernia, CARLOS, small bowel resection. She feels well, pain is minimal and controlled with tylenol. Only wants tylenol and motrin for pain control at home. Tolerating diet, passing flatus. VSS. Abd very benign, soft, clean dressing. StAble for dc to home today. Educated no heavy lifting. Dc on bowel regimen until normalized. patient comfortable with plan. <Aislinn Shah PA-C - Last Filed: 07/07/22 08:34> Time Spent With Patient Time: Total time managing care of this patient today ____ minutes. <Aislinn Shah PA-C - Last Filed: 07/07/22 08:34> Quality Stroke Does the patient have a stroke diagnosis?: No <Aislinn Shah PA-C - Last Filed: 07/07/22 08:34> VTE Prior VTE?: No <Aislinn Shah PA-C - Last Filed: 07/07/22 08:34> VTE Risk Level:: Surgical - moderate <Aislinn Shah PA-C - Last Filed: 07/07/22 08:34> VTE Device Contraindication: N/A - Device Ordered <Aislinn Shah PA-C - Last Filed: 07/07/22 08:34> VTE Drug Contraindication: N/A - Med Ordered <Aislinn Shah PA-C - Last Filed: 07/07/22 08:34>
[2022-07-07] MEDS: Docusate Sodium 100 MG CAPSULE PO (08:49)
[2022-07-07] MEDS: polyethylene glycoL 3350 17 GM POWD.PACK PO (08:49)
[2022-07-07] MEDS: 0.9 % Sodium Chloride Flush 3 ML SYRINGE IVFLUSH (08:51)
--- NOTE | 2022-07-07 13:33 | PM.DS ---
DS: Providers Provider Date of Service: 07/07/22 Date of admission: 07/02/22 11:23 Primary care physician: Brittany Elizabeth MD Attending physician on admission: Herbert Chowdary DS: Diagnosis Discharge Diagnosis (1) Incarcerated incisional hernia: Status: Acute (2) SBO (small bowel obstruction): Status: Acute DS: Summary Hospital Course Hospital Course: HPI AT ADMISSION: Selma Huston is a 67 year old female with PMH of GERD who presented to the ED with complaints of abdominal pain and nausea/vomiting. She reports the pain started last night on the right associated with a lump. It was very painful to touch. The pain worsened in severity and she developed nausea and vomiting this morning which prompted her to seek evaluation in the ED. She has a history of exploratory laparotomy with low anterior resection and diverting loop ileostomy (2015) for perforated diverticulitis. She has subsequently had reversal of the loop ileostomy (2017). In the ED, she was found to have a tender lump on the right mid abdomen at her ileostomy site. CT scan abd/pelvis were performed which showed right parasagittal ventral hernia with narrowed neck containing short ileal loop segment with proximal jejunum and ileum dilated with air fluid levels and distal ileum decompressed. Reduction of the incisional hernia were attempted by the ED provider and this casualty underwriter and failed. She has not passed flatus since this morning and last BM was yesterday morning. HOSPITAL COURSE: The patient was admitted to the surgical service for further treatment of the incarcerated incisional hernia. It was recommended to proceed with repair of incarcerated incisional hernia, possible small bowel resection, possible laparotomy. She was added onto the OR schedule for that day. She does have dilated proximal loops however stomach and very proximal small bowel are unremarkable and therefore NGT will be held. Patient comfortable with plan and agrees to proceed.? On 07/02/22, repair and reduction of incarcerated incisional hernia, small bowel resection, control of inferior epigastric vessel bleed was performed by Dr. Chowdary without complication. The patient tolerated the procedure well and was admitted to the medical/surgical floor for observation. She had an uncomplicated recovery course. She was doing well on POD #1 with adequate pain control. She was advanced to clear liquids. Her carreon was removed. She was ambulated. Due to the bleeding intraoperatively, her H/H was trended. It slightly drifted however she did not require transfusion. It began to trend up. Her vitals remained stable. Her diet was slowly advanced to solid. Her abdomen remained benign with a clean incision with moderate surrounding ecchymosis. On the day of discharge, she was tolerating a solid diet without N/V. She was comfortable with pain with only tylenol. She was passing flatus. She was started on a bowel regimen on colace and miralax until she began to move her bowels normally. She is to f/u in the office in [address] Chowdary. Status at Discharge Functional status at discharge: independent ambulation Overall status at discharge: patient is progressing back to baseline Time Spent with Patient Time attestation: Total time managing care of this patient today ____ minutes. Discharge coordination time: Less than 30 minutes Quality: Safe Use of Opioids Does Pt have an Active Cancer Diagnosis on the Problem List?: No Quality: Stroke Does the patient have a stroke diagnosis?: No Physical Exam Vital Signs: Vital Signs: Last Vital Signs Temp 98.1 F 07/07/22 08:00 Pulse 74 07/07/22 08:00 Resp 18 07/07/22 08:00 BP 142/82 H 07/07/22 08:00 Pulse Ox 97 07/07/22 08:00 O2 Del Method Room Air 07/07/22 08:00 O2 Flow Rate 2 07/03/22 11:50 BMI result Body Mass Index 24.5 Const: General: comfortable, no acute distress and alert Orientation/consciousness: patient oriented x3 Resp: Effort & Inspection: normal respiratory effort GI: Inspection: No distended and Yes incision (clean, surrounding ecchymosis) Palpation (GI): Soft to palpation, Tenderness to palpation present (GI) (mild incisional ), no guarding and not rigid Percussion: Yes normal to percussion Skin: General skin exam: no rashes or lesions noted Neuro: General: patient oriented x3 and moves all extremities DS: Data Data Completed and Pending Completed studies during hospitalization [Text1]: 07/02/22 13:42 Surgical [PTH] Routine A. Small bowel, segmental resection: -Small bowel wall and mucosa with hemorrhage, edema, and focal early ischemic changes. -Focal transmural defect. -Viable margins with congestion and hemorrhage. B. Hernia sac, herniorrhaphy: -Fibromembranous tissue with mesothelial lining and vascular adipose tissue, consistent with hernia sac. Discharge Plan Discharge Anticipated Discharge Date/Time: 07/07/22 08:33 Patient Disposition: Home, Self-Care Discharge Diagnosis: incarcerated incisional hernia Referrals: Herbert Chowdary MD [Physician] - 2 Weeks Brittany Lagos MD [Primary Care Provider] - 1 Week Discharge Medications: New acetaminophen 500 mg tablet 1,000 mg PO Q6H PRN (Reason: pain) Qty: 30 0RF ibuprofen 600 mg tablet 600 mg PO Q6H PRN (Reason: pain) Qty: 30 0RF docusate sodium [Colace] 100 mg capsule 100 mg PO BID Qty: 30 0RF polyethylene glycol 3350 [Miralax] 17 gram/dose powder 17 g PO DAILY PRN (Reason: constipation) Qty: 119 0RF Continued fluticasone propionate 50 mcg/actuation spray,suspension 1 spray intranasal DAILY Qty: 16 11RF cholecalciferol (vitamin D3) [Vitamin D3] 50 mcg (2,000 unit) capsule 50 mcg PO DAILY 90 Days Qty: 90 1RF omeprazole 20 mg capsule,delayed release(DR/EC) 20 mg PO DAILY@0630 No Action ondansetron HCl 4 mg tablet 4 mg PO Q8H PRN (Reason: nausea and vomiting) Qty: 10 0RF Discharge Orders: Discharge Order (Routine); Ordered 07/07/22 Ordered By: Aislinn Shah Diet: Advance to usual diet Activity on Discharge: No heavy lifting Stand Alone Forms: Patient Portal Discharge page, Work/School Release Activity Restrictions/Additional Instructions: If the incision area is tender, you may apply an ice pack for short intervals (No more than 20 minutes on, followed by at least 20 minutes off). Do not apply heat. Do not use creams, lotions, or topical antibiotics. These can cause infection or allergic reaction. Ok to shower. You have prema closing your incision and these will be removed approximately 10-14 days after surgery. NO HEAVY LIFTING (>10lbs) or strenuous activity. Follow up in office. ([phone]) Call Your Doctor If: -Your temperature exceeds 101.5? F -You experience excessive pain or swelling -You have an unexpected reaction to medication -You have excessive bleeding -You experience continued vomiting/nausea -Your incision begins to separate -Your incision shows signs of infection such as increased redness, swelling, excessive pain, drainage (light blood or clear fluid is normal) or heat Care Plan Goals: Return to baseline health and resume normal activities following recovery period. Health Concerns: incarcerated incisional hernia SBO Plan of Treatment: s/p repair of incarcerated incisional hernia F/u in office in 2 weeks abdominal binder Assessment: Doing well post op Discharge Date/Time: 07/07/22 11:24
== END 2022-07-07 11:24 | disposition home or self-care (01) | DRG 330 ==
LOC: HO.ED 11:43 → HO.EDOVER 11:53 → HO.S3 16:28
PROVIDERS: Surgery; Admitting Provider Physician Assistant Surgical; Emergency Provider Emergency Medicine; PCP Internal Medicine; Visit Provider Physician Assistant Surgical
PROC: 0DB80ZZ Excision of Small Intestine, Open Approach (ICD-10-PCS; principal; 2022-07-02 12:40)
DX: K43.0 Incisional hernia with obstruction, without gangrene (principal); F33.9 Major depressive disorder, recurrent, unspecified; K91.71 Accidental puncture and laceration of a digestive system organ or structure during a digestive system procedure; K66.0 Peritoneal adhesions (postprocedural) (postinfection); Y83.9 Surgical procedure, unspecified as the cause of abnormal reaction of the patient, or of later complication, without mention of misadventure at the time of the procedure; F41.9 Anxiety disorder, unspecified; Z88.5 Allergy status to narcotic agent; Z20.822 Contact with and (suspected) exposure to COVID-19; Z79.51 Long term (current) use of inhaled steroids; Z79.899 Other long term (current) drug therapy
CPT/HCPCS: 36415; 74176; 80048; 80053; 83605; 85014; 85018; 85025; 85027; 85610; 87040; 87635; 88302; 88307; 99285; J0131; J0690; J1100; J2250; J2270; J2405; J2550; J2765; J3010

== ENCOUNTER → 2022-07-16 09:38 | Outpatient (BNVA) | payer MEDICARE, MEDICAID, SELFPAY | PROVIDERS: PCP Internal Medicine; Visit Provider Surgery | DX: Z87.19 Personal history of other diseases of the digestive system (principal) | CPT/HCPCS: 99212 ==

== ENCOUNTER 2022-07-29 07:56 | Outpatient (REF) | payer MEDICARE, MEDICAID, SELFPAY ==
--- NOTE | ~2022-07-29 | US_ITS ---
EXAMINATION: US THYROID CLINICAL INFORMATION: Nontoxic multinodular goiter. History of outside thyroid biopsy. COMPARISON: Thyroid ultrasound 10/14/2020 and 10/12/2019. Ultrasound-guided thyroid biopsy 04/14/2018. TECHNIQUE: Linear transducer grayscale and color Doppler examination with attention to the region of the thyroid. FINDINGS: SIZE: Measurements of the thyroid lobes and nodules are given in sagittal, anteroposterior and transverse dimensions respectively. Right Thyroid Lobe: 6.5 x 2.6 x 2.4 cm, volume 21.8 mL. Previously 5.2 x 2.8 x 2.6 cm, volume 19.8 mL. Parenchyma: The gland echotexture is heterogeneous. Thyroid vascularity is normal. Left Thyroid Lobe: 6.7 x 2.6 x 2.6 cm, volume 23.8 mL. Previously 5.3 x 2.4 x 2.2 cm, volume 14.6 mL. Parenchyma: The gland echotexture is heterogeneous. Thyroid vascularity is normal. Isthmus: 0.5 cm in maximum AP dimension. Previously 0.3 cm. Estimated total number of nodules greater than or equal to 1 cm: 4. Professional Development Manager nodules are described as follows: 1. Location: Right upper pole/lateral. Size: 0.6 x 0.3 x 0.5 cm, volume 0.05 mL. Previously: Not seen previously. Nodule characteristics: Composition: Spongiform (0). ACR TI-RADS total points: 0 ACR TI-RADS category: 1 2. Location: Right mid pole/lateral. Size: 1.6 x 1.5 x 1.3 cm, volume 1.6 mL. Previously: 1.3 x 1.0 x 1.7 cm, volume 1.2 mL. Nodule characteristics: Composition: Solid (2). Echogenicity: Isoechoic (1). Shape: Not taller than wide (0). Margins: Smooth (0). Echogenic Foci: Macrocalcifications (1). ACR TI-RADS total points: 4 Previous: 5 ACR TI-RADS category: 4 Previous: 4 Significant change in size (>/= 20% in 2 dimensions and minimal increase of 2 mm or 50% or greater increase in volume): Change in features: Change in ACR TI-RADS risk category: 3. Location: Right mid pole/lateral. Size: 1.0 x 0.6 x 0.6 cm, volume 0.18 mL. Previously: Not seen previously. Nodule characteristics: Composition: Spongiform (0). ACR TI-RADS total points: 0 ACR TI-RADS category: 1 4. Location: Left mid pole. Size: 1.5 x 1.0 x 1.1 cm, volume 0.86 mL. Previously: 1.5 x 1.0 x 1.0 cm, volume 0.45 mL. Nodule characteristics: Composition: Solid (2). Echogenicity: Hypoechoic (2). Shape: Not taller than wide (0). Margins: Smooth (0). Echogenic Foci: None (0). ACR TI-RADS total points: 4 Previous: 3 ACR TI-RADS category: 4 Previous: 3 Significant change in size (>/= 20% in 2 dimensions and minimal increase of 2 mm or 50% or greater increase in volume): Change in features: Change in ACR TI-RADS risk category: 5. Location: Left lower pole. Size: 1.9 x 1.7 x 1.7 cm, volume 2.9 mL. Previously: 1.2 x 1.2 x 1.9 cm, volume 1.4 mL. Nodule characteristics: Composition: Solid (2). Echogenicity: Hypoechoic (2). Shape: Not taller than wide (0). Margins: Smooth (0). Echogenic Foci: None (0). ACR TI-RADS total points: 4 Previous: 3 ACR TI-RADS category: 4 Previous: 3 Significant change in size (>/= 20% in 2 dimensions and minimal increase of 2 mm or 50% or greater increase in volume): Change in features: Change in ACR TI-RADS risk category: NODES: No lymphadenopathy is seen in the tissue surrounding the thyroid gland. US/US thyroid IMPRESSION: Enlarged heterogeneous thyroid gland. Interval increase in size in largest nodule in the inferior left lobe. Ultrasound follow-up in one, 2, 3 and 5 years recommended. Newly appreciated small nodules in the right lobe. Otherwise thyroid nodules are stable. ACR TI-RADS RECOMMENDATION REFERENCE: Ultrasound-guided fine-needle aspiration, followup ultrasound, no further follow up. * TR1 (0 point) and TR2 (2 points): No FNA or follow up * TR3 (3 points): FNA if more than or equal to 2.5 cm in maximum dimension, followup ultrasound in 1, 3 and 5 years if 1.5 to 2.4 cm in maximum dimension. * TR4 (4-6 points): FNA if more than or equal to 1.5 cm in maximum dimension, followup ultrasound in 1, 2, 3 and 5 years if 1 to 1.4 cm in maximum dimension. * TR5 (more than or equal to 7 points): FNA if more than or equal to 1 cm in maximum dimension, followup ultrasound every year for 5 years if 0.5 to 0.9 cm in maximum dimension. * TR3, TR4 or TR5 nodules that are below the size threshold for follow up receive no follow up.
== END 2022-07-29 07:57 | disposition home or self-care (01) ==
LOC: HO.US 07:56
PROVIDERS: PCP Internal Medicine; Visit Provider Internal Medicine Endocrinology, Diabetes & Metabolism
DX: E04.2 Nontoxic multinodular goiter (principal)
CPT/HCPCS: 76536

== ENCOUNTER → 2022-08-13 10:08 | Outpatient (BNVA) | payer MEDICARE, MEDICAID, SELFPAY | PROVIDERS: PCP Internal Medicine; Visit Provider Internal Medicine Endocrinology, Diabetes & Metabolism | DX: E04.2 Nontoxic multinodular goiter (principal) | CPT/HCPCS: 36415; 84439; 84443; 99212 ==

== ENCOUNTER 2022-08-13 11:03 | Outpatient (REF) | payer MEDICARE, MEDICAID, SELFPAY ==
[2022-08-13 13:01] LABS: Free T4 (Free Thyroxine) 0.87 ng/dL (0.71-1.85); Thyroid Stimulating Hormone 0.45 uIU/mL (0.32-4.0)
== END 2022-08-13 11:04 | disposition home or self-care (01) ==
LOC: HO.10HDL 11:03
PROVIDERS: Visit Provider Internal Medicine Endocrinology, Diabetes & Metabolism
DX: Z13.89 Encounter for screening for other disorder (principal)
CPT/HCPCS: 36415; 84439; 84443

== ENCOUNTER → 2022-08-20 09:16 | Outpatient (BNVA) | payer MEDICARE, MEDICAID, SELFPAY | PROVIDERS: PCP Internal Medicine; Visit Provider Surgery | DX: Z98.890 Other specified postprocedural states (principal); Z87.19 Personal history of other diseases of the digestive system | CPT/HCPCS: 99212 ==

== ENCOUNTER 2022-11-05 10:47 | Outpatient (AMB) | payer MEDICARE, MEDICAID, SELFPAY ==
[2022-11-05 10:49] VITALS: BP 130/82; PULSE 80; O2SAT 98; BMI 23.6
--- NOTE | 2022-11-05 10:49 | MHC.PC.OV ---
Vital Signs 11/05/22 10:49 Height 5 ft 2 in Weight 129 lb BMI 23.6 BP 130/82 Blood Pressure Location Lt brachial Position Sitting Pulse 80 Pulse Source Pulse Oximeter Pulse Oximetry (%) 98 Oxygen Delivery Method Room Air Intake Visit Reasons: office visit Intake Note: Patient is here today for a physical. F/U?S/P repair, reduction of incarcerated hernia. Pt needs to get a TB/ titer blood work for a new job. Insole And Outsole Splitter Required: No Accompanied by: Self / Same As Patient Allergies hydrocodone [From VICODIN] Adverse Reaction (Intermediate, Verified 11/05/22 11:03) VOMMITING,DIZZY, NAUSEA tramadol [TRAMADOL] Adverse Reaction (Intermediate, Verified 11/05/22 11:03) NAUSEA & VOMITING oxycodone [From Percocet] Adverse Reaction (Mild, Verified 11/05/22 11:03) Formication Medication List - Last Reconciled 11/05/22 by Brittany Elizabeth MD acetaminophen 1,000 mg (2 x 500 mg) PO Q6H PRN cholecalciferol (vitamin D3) (Vitamin D3) 50 mcg PO DAILY 90 days docusate sodium (Colace) 100 mg PO BID fluticasone propionate 50 mcg/actuation 1 spray intranasal DAILY ibuprofen 600 mg PO Q6H PRN omeprazole 20 mg PO DAILY PRN 90 days ondansetron HCl 4 mg PO Q8H PRN polyethylene glycol 3350 (Miralax) 17 grams PO DAILY PRN Tobacco use date assessed: 06/23/22 HPI HPI Comments History of Present Illness Details This is a 67-year-old female with mild major depression that comes for her physical exam. Depression is in remission. Mammogram done 2022 and was normal. Had colonoscopy less than 5 years ago as per patient. No chest pain or shortness of breath. Last tetanus vaccine was over 10 years ago. [facility] Medical History (Updated 11/05/22 @ 11:16 by Brittany Elizabeth MD) Anxiety COVID-19 vaccine series completed Dyslipidemia Hypovitaminosis D Low TSH level Mild recurrent major depression Multinodular goiter Muscle ache Tachycardia Surgical History H/O colonoscopy History of ankle surgery History of appendectomy History of esophagogastroduodenoscopy (EGD) History of hernia repair (07/02/22) History of ileostomy History of reversal of ileostomy History of surgery History of tonsillectomy Family History Father Colon cancer Mother Breast cancer Brother Brain cancer Paternal Uncle Lung cancer Sister Breast cancer Substance use disorder Daughter Mental health disorder Social History Household Members: Friend(s) Housing: House Are you a primary transitional care manager to a significant other at home: No Do you presently have visiting nurse or other home services: No Alcohol intake: former Patient Tobacco Use Status: Former Tobacco user Quit Date: 2006 Tobacco use type: Cigarette e-Cigarette/Vaping Use: Never Used Second Hand Smoke Exposure: No Substance Use Type: Marijuana service: No Current occupational status: unemployed and disabled Cognitive needs: No Hearing needs: No Vision needs: No Questionnaire Thrive Questionnaire Date Thrive assessed: 06/23/22 BOSTON-7 AMB Questionnaire BOSTON-7 Date BOSTON - 7 assessed: 06/23/22 Source: Developed by Drs. Manuel Hodges, [employer], Chuy Vivar and colleagues, with an educational aram from [employer]. Review of Systems Const All systems reviewed & are unremarkable except as noted in HPI and below Eyes Reports no additional complaints, Denies change in vision and Denies other visual disturbances Card Denies chest pain at rest, Denies chest pain with activity, Denies edema, Denies irregular heart rhythm, Denies claudication, Denies dyspnea, Denies dyspnea on exertion, Denies orthopnea, Denies paroxysmal nocturnal dyspnea and Denies slow heart rate Resp Denies cough, Denies dyspnea and Denies dyspnea on exertion GI Denies abdominal pain, Denies change in bowel habits, Denies excessive flatus, Denies nausea and Denies vomiting Denies urinary incontinence, Denies urinary hesitancy and Denies urinary urgency Musc Denies abnormal gait, Denies atrophy, Denies deformity and Denies limited range of motion Skin/Breast Denies bleeding lesions, Denies changing lesions and Denies rash Neuro Denies abnormal gait and Denies lack of coordination Physical exam (Primary Care) Vital Signs: Last Vital Signs Pulse 80 11/05/22 10:49 BP 130/82 11/05/22 10:49 Pulse Ox 98 11/05/22 10:49 Oxygen Delivery Method Room Air 11/05/22 10:49 BMI result Body Mass Index 23.6 Tobacco/Smoking Status: Tobacco use Status Tobacco use date assessed 06/23/22 11/05/22 10:50 Patient Tobacco Use Status Former Tobacco user 11/05/22 10:50 Tobacco use type Cigarette 11/05/22 10:50 e-Cigarette/Vaping Use Never Used 11/05/22 10:50 Thrive Assessment: Date of Thrive Assessment Date Thrive assessed 06/23/22 11/05/22 10:50 Const Orientation/consciousness: patient oriented x3 HENMT Head: Yes normal to inspection, Yes normocephalic and Yes atraumatic Ears: external ears normal Eyes General: appearance normal, both eyes and all related structures Eyelids: Yes eyelids normal Conjunctivae: conjunctivae normal Neck Neck: Yes normal visual inspection and Yes supple Resp Effort & Inspection: normal respiratory effort Auscultation: clear to auscultation bilaterally Cardio Jugular venous distension: no JVD Rate: regular rate Rhythm: regular rhythm Heart sounds: S1 normal heart sound present and S2 normal heart sound present GI Inspection: Yes normal to inspection Palpation (GI): Soft to palpation and nontender Auscultation: normal bowel sounds Skin General skin exam: no rashes or lesions noted Neuro General: patient oriented x3 and no focal motor deficits Extrem General: Yes full ROM Psych Appearance: grossly normal Immunizations Boostrix Tdap Performing Provider: Brittany Elizabeth MD Administered by: MOHSEN George on 11/05/22 11:21 Dose Route Admin Location Lot Number Expiration Date [facility] Tipple Operator 0.5 mL IM Right Deltoid [id number] 01/06/25 [id number] [place] VIS Given Date VIS Provided VIS Publication Date 11/05/22 Single Vaccine 20 Eligibility Eligibility Date Funding Source Not [facility] Eligible 11/05/22 Private Assessment and Plan Assessment & Plan (1) Physical exam: Code(s): Z00.00 - Encounter for general adult medical examination without abnormal findings Plan: Repeat in a year (2) Mild recurrent major depression: Code(s): F33.0 - Major depressive disorder, recurrent, mild Plan: In remission Orders: Orders Comprehensive [place]. Panel Fast Today Z00.00 - Encounter for general adult medical examination without abnormal findings IRON PROFILE Today D64.9 - Anemia, unspecified Lipid Panel Today E78.5 - Hyperlipidemia, unspecified Vitamin D 25-OH Total Today E55.9 - Vitamin D deficiency, unspecified Complete Blood Count Auto Diff Today D64.9 - Anemia, unspecified T Spot TB Today Z11.1 - Encounter for screening for respiratory tuberculosis Hepatitis B Profile Today Z23 - Encounter for immunization Mumps Virus IgG Antibody Today Z23 - Encounter for immunization Rubeola IgG (Measles) Today Z23 - Encounter for immunization Rubella IgG Antibody Today Z23 - Encounter for immunization Varicella IgG Antibody Today Z23 - Encounter for immunization TDaP Immunization Today Z23 - Encounter for immunization Coding Level of Care Code Est Pt Prev Care >65y(19431) Diagnoses Physical exam Z00.00 Mild recurrent major depression F33.0 Time Spent (min) 33
== END 2022-11-05 11:19 | disposition home or self-care (01) ==
PROVIDERS: PCP Internal Medicine; Visit Provider Internal Medicine
DX: Z00.00 Encounter for general adult medical examination without abnormal findings (principal); F33.0 Major depressive disorder, recurrent, mild; Z23 Encounter for immunization
CPT/HCPCS: 90471; 90715; 99397

== ENCOUNTER 2022-11-09 09:31 | Outpatient (REF) | payer MEDICARE, MEDICAID, SELFPAY ==
[2022-11-09 11:17] LABS: MANUAL DIFF FLAG NO
[2022-11-09 11:28] LABS: Basophils Percent Auto 0.5 % (0-2); Eosinophils Absolute Auto 0.4 X10*3/uL (0.0-0.4); Eosinophils Percent Auto 6.2 % (0-4); Hematocrit 37.8 % (37.0-47.0); Hemoglobin 12.4 g/dl (12.0-16.0); Imm Gran Abs Auto 0.02 X10*3/uL (0.00-0.03); Imm Gran Pct Auto 0.3 % (0.0-0.4); Lymphocytes Absolute Auto 2.2 X10*3/uL (1.2-4.9); Lymphocytes Percent Auto 36.1 % (20-40); Mean Corpuscular HGB Conc 32.8 g/dl (31.0-35.0); Mean Corpuscular Hemoglobin 28.8 pg (27.0-33.0); Mean Corpuscular Volume 87.7 fL (80.0-98.0); Mean Platelet Volume 9.6 fL (9.4-12.3); Monocytes Absolute Auto 0.3 X10*3/uL (0.1-1.2); Monocytes Percent Auto 4.3 % (2-11); Neutrophils Absolute Auto 3.1 x10*3/uL (2.0-8.3); Neutrophils Percent Auto 52.6 % (45-73); Platelet Count 401 X10*3/uL (160-400); Red Blood Count 4.31 X10*6/uL (4.20-5.50); Red Cell Distribution Width 13.9 % (11.0-16.0)
[2022-11-09 11:47] LABS: Alanine Aminotransferase 12 U/L (0-31); Albumin Level 4.3 g/dL (3.5-5.0); Alkaline Phosphatase 81 U/L (39-117); Anion Gap 12 (12-20); Aspartate Amino Transferase 10 U/L (5-31); Bilirubin Total 0.8 mg/dL (0.0-1.0); Blood Urea Nitrogen 15 mg/dL (9-16); Calcium 9.4 mg/dL (8.4-10.2); Carbon Dioxide 24 mmol/L (22-29); Chloride 107 mmol/L (96-108); Cholesterol 211 mg/dL; Estimated Glomerular Filt Rate > 60; Glucose Fasting 114 mg/dL (60-99); HDL Cholesterol 86 mg/dL; Iron 124 mcg/dL (30-160); LDL Cholesterol Calculated 109 mg/dl; Percent Iron Saturation 37 % (15-50); Sodium 139 mmol/L (135-145); Total Iron Binding Capacity 336 mcg/dL (228-428); Triglycerides 80 mg/dL; Unsaturated Iron Binding 212 ug/dL
[2022-11-09 11:53] LABS: Vitamin D 25-OH Total 85.5 ng/mL (>30)
[2022-11-09 12:13] LABS: HBS Num1 361.11 mIU/mL (0-7.99); HBc Num1 0.22 S/CO (0.00-0.79); HBsAGNum1 0.33 S/CO (0.00-0.99); Hepatitis B Core Antibody Nonreactive (Nonreactive); Hepatitis B Surface Antigen Negative (Negative); ~Hepatitis B Surface Antibody REACTIVE (Nonreactive)
[2022-11-10 10:32] LABS: Rubeola IgG (Measles) >300.00 AU/mL
[2022-11-10 10:43] LABS: Rubella IgG Antibody 7.64 Index
[2022-11-11 21:18] LABS: TS Negative Control Passed; TS Panel A 0; TS Panel B 1; TS Positive Control Passed; TSpotTB Negative (Negative)
== END 2022-11-09 09:32 | disposition home or self-care (01) ==
LOC: HO.10HDL 09:31
PROVIDERS: Visit Provider Internal Medicine
DX: Z00.00 Encounter for general adult medical examination without abnormal findings (principal); Z11.1 Encounter for screening for respiratory tuberculosis; E78.5 Hyperlipidemia, unspecified; E55.9 Vitamin D deficiency, unspecified; D64.9 Anemia, unspecified; Z11.59 Encounter for screening for other viral diseases; Z72.89 Other problems related to lifestyle
CPT/HCPCS: 36415; 80053; 80061; 82306; 83540; 85025; 86481; 86704; 86706; 86735; 86762; 86765; 86787; 87340

== ENCOUNTER 2022-12-09 09:08 | Outpatient (REF) | payer MEDICARE, MEDICAID, SELFPAY ==
--- NOTE | ~2022-12-09 | MM_ITS ---
EXAMINATION: MM SCREENING DIGITAL BREAST TOMOSYNTHESIS, BILATERAL CLINICAL INFORMATION: Screening. Asymptomatic. COMPARISON: Mammography: This study is compared with prior exams dating back to 2017. TECHNIQUE: Digital breast tomosynthesis is performed in both the craniocaudal and mediolateral oblique views along with computer-aided detection (CAD). Synthesized 2D images are generated from the tomosynthesis. FINDINGS: There are scattered areas of fibroglandular density (ACR BI-RADS breast composition Category b). In the upper outer quadrant of the left breast, there is a focal asymmetry which warrants additional mammographic imaging. Targeted sonography may be performed at the discretion of the diagnostic radiologist. In the right breast, there are no significant masses, abnormal calcifications, or other abnormalities. Few, bilateral benign calcifications are present. MM/MM tomosynthesis screening BI IMPRESSION: Focal asymmetry of the left breast warrants additional mammographic imaging. No mammographic signs of malignancy right breast. ASSESSMENT: BI-RADS BI-RADS 0 - Incomplete: Needs additional Imaging. RECOMMENDATION: 1. Additional views of the left breast 2. Targeted ultrasound if warranted after review of the additional views. 3. Radiology department staff will contact the patient for additional imaging. Additional Imaging required This examination should not preclude the clinical evaluation of a suspicious palpable abnormality. This patient's information was entered into a reminder system with a target due date for their next mammogram.
== END 2022-12-09 09:09 | disposition home or self-care (01) ==
LOC: HO.MAMMO 09:08
PROVIDERS: PCP Internal Medicine; Visit Provider Internal Medicine
DX: Z12.31 Encounter for screening mammogram for malignant neoplasm of breast (principal)
CPT/HCPCS: 77063; 77067

== ENCOUNTER → 2022-12-09 09:15 | Outpatient (BNV) | payer MEDICARE, MEDICAID, SELFPAY | PROVIDERS: PCP Internal Medicine; Visit Provider Radiology Diagnostic Radiology | DX: Z12.31 Encounter for screening mammogram for malignant neoplasm of breast (principal) | CPT/HCPCS: 77063; 77067 ==

== ENCOUNTER 2022-12-24 10:00 | Outpatient (AMB) | payer MEDICARE, MEDICAID, SELFPAY ==
[2022-12-24 10:05] VITALS: BP 132/80; BMI 23.4
--- NOTE | 2022-12-24 10:05 | MHC.PC.OV ---
Vital Signs 12/24/22 10:05 Height 5 ft 2 in Weight 128 lb BMI 23.4 BP 132/80 Blood Pressure Location Lt brachial Position Sitting Intake Visit Reasons: 6 MONTH F/U Intake Note: Patient here for a 6 month follow up [place] Required: No Accompanied by: Self / Same As Patient Allergies hydrocodone [From VICODIN] Adverse Reaction (Intermediate, Verified 12/24/22 10:29) VOMMITING,DIZZY, NAUSEA tramadol [TRAMADOL] Adverse Reaction (Intermediate, Verified 12/24/22 10:29) NAUSEA & VOMITING oxycodone [From Percocet] Adverse Reaction (Mild, Verified 12/24/22 10:29) Formication Medication List - Last Reconciled 12/24/22 by Brittany Elizabeth MD acetaminophen 1,000 mg (2 x 500 mg) PO Q6H PRN cholecalciferol (vitamin D3) (Vitamin D3) 50 mcg PO DAILY 90 days docusate sodium (Colace) 100 mg PO BID fluticasone propionate 50 mcg/actuation 1 spray intranasal DAILY ibuprofen 600 mg PO Q6H PRN omeprazole 20 mg PO DAILY PRN 90 days ondansetron HCl 4 mg PO Q8H PRN polyethylene glycol 3350 (Miralax) 17 grams PO DAILY PRN Tobacco use date assessed: 06/23/22 Fall risk assessment: No Falls in past year Last assessed Fall Risk: 12/24/22 Dental Screening Dental Screen Date: 12/24/22 Did you have a dental visit in the last 12 months?: Yes Did you have a dental problem in the last 6 months where you did not have access to dental care?: No Was dental information given to patient?: Patient has dentist HPI HPI Comments History of Present Illness Details This is a 67-year-old female with GERD, constipation, mild major depression and anxiety that comes today for follow-up on her conditions. She has elevated cholesterol but does not require any statins. GERD stable with PPIs. Constipation stable with medications. Depression with anxiety has been in remission not requiring any medications. No chest pain or shortness of breath. COUNT INCLUDES THE [facility] Medical History (Updated 12/24/22 @ 11:29 by Brittany Elizabeth MD) Dyslipidemia COVID-19 vaccine series completed Mild recurrent major depression Tachycardia Low TSH level Multinodular goiter Muscle ache Hypovitaminosis D Anxiety Surgical History History of surgery History of hernia repair (07/02/22) History of esophagogastroduodenoscopy (EGD) H/O colonoscopy History of reversal of ileostomy History of ileostomy History of ankle surgery History of tonsillectomy History of appendectomy Family History Father Colon cancer Mother Breast cancer Brother Brain cancer Paternal Uncle Lung cancer Sister Breast cancer Substance use disorder Daughter Mental health disorder Social History Household Members: Friend(s) Housing: House Are you a primary intensive care medicine specialist to a significant other at home: No Do you presently have visiting nurse or other home services: No Alcohol intake: former Patient Tobacco Use Status: Former Tobacco user Quit Date: 2006 Tobacco use type: Cigarette e-Cigarette/Vaping Use: Never Used Second Hand Smoke Exposure: No Substance Use Type: Marijuana service: No Current occupational status: employed Current occupational exposures/hazards: No Cognitive needs: No Hearing needs: No Vision needs: No Questionnaire Thrive Questionnaire Date Thrive assessed: 06/23/22 BOSTON-7 AMB Questionnaire BOSTON-7 Date BOSTON - 7 assessed: 06/23/22 Source: Developed by Drs. Manuel Hodges, [employer], Chuy Vivar and colleagues, with an educational aram from [employer]. Review of Systems Const All systems reviewed & are unremarkable except as noted in HPI and below Eyes Reports no additional complaints, Denies change in vision and Denies other visual disturbances Card Denies chest pain at rest, Denies chest pain with activity, Denies edema, Denies irregular heart rhythm, Denies claudication, Denies dyspnea, Denies dyspnea on exertion, Denies orthopnea, Denies paroxysmal nocturnal dyspnea and Denies slow heart rate Resp Denies cough, Denies dyspnea and Denies dyspnea on exertion GI Denies abdominal pain, Denies change in bowel habits, Denies excessive flatus, Denies nausea and Denies vomiting Denies urinary incontinence, Denies urinary hesitancy and Denies urinary urgency Musc Denies abnormal gait, Denies atrophy, Denies deformity and Denies limited range of motion Skin/Breast Denies bleeding lesions, Denies changing lesions and Denies rash Neuro Denies abnormal gait and Denies lack of coordination Physical exam (Primary Care) Vital Signs: Last Vital Signs BP 132/80 12/24/22 10:05 BMI result Body Mass Index 23.4 Tobacco/Smoking Status: Tobacco use Status Tobacco use date assessed 06/23/22 12/24/22 10:08 Patient Tobacco Use Status Former Tobacco user 12/24/22 10:08 Tobacco use type Cigarette 12/24/22 10:08 e-Cigarette/Vaping Use Never Used 12/24/22 10:08 Thrive Assessment: Date of Thrive Assessment Date Thrive assessed 06/23/22 12/24/22 10:08 Eyes General: appearance normal, both eyes and all related structures Eyelids: Yes eyelids normal Conjunctivae: conjunctivae normal Neck Neck: Yes normal visual inspection and Yes supple Resp Effort & Inspection: normal respiratory effort Auscultation: clear to auscultation bilaterally Cardio Jugular venous distension: no JVD Rate: regular rate Rhythm: regular rhythm Heart sounds: S1 normal heart sound present and S2 normal heart sound present Extrem General: Yes full ROM Assessment and Plan Assessment & Plan (1) Mild recurrent major depression: Code(s): F33.0 - Major depressive disorder, recurrent, mild Plan: In remission. (2) GERD (gastroesophageal reflux disease): Code(s): K21.9 - Gastro-esophageal reflux disease without esophagitis Qualifiers: Esophagitis presence: with esophagitis Esophagitis bleeding: without hemorrhage Qualified Code(s): K21.00 - Gastro-esophageal reflux disease with esophagitis, without bleeding Plan: Continue PPIs (3) Anxiety: Code(s): F41.9 - Anxiety disorder, unspecified Plan: In remission (4) Constipation by delayed colonic transit: Code(s): K59.01 - Slow transit constipation Plan: Continue MiraLax as needed Coding Level of Care Code Est Pt Level 4 (15002) Diagnoses Mild recurrent major depression F33.0 Gastroesophageal reflux disease with esophagitis without hemorrhage K21.00 Esophagitis presence: with esophagitis Esophagitis bleeding: without hemorrhage Anxiety F41.9 Constipation by delayed colonic transit K59.01 Time Spent (min) 22
== END 2022-12-24 10:40 | disposition home or self-care (01) ==
PROVIDERS: Visit Provider Internal Medicine
DX: K21.00 Gastro-esophageal reflux disease with esophagitis, without bleeding (principal); F33.0 Major depressive disorder, recurrent, mild; F41.9 Anxiety disorder, unspecified; K59.01 Slow transit constipation
CPT/HCPCS: 99214

== ENCOUNTER 2023-01-18 09:25 | Outpatient (REF) | payer MEDICARE, MEDICAID, SELFPAY ==
--- NOTE | ~2023-01-18 | MM_ITS ---
EXAMINATION: MM DIAGNOSTIC DIGITAL BREAST TOMOSYNTHESIS, LEFT US BREAST LIMITED, LEFT MAMMOGRAPHY: CLINICAL INFORMATION: Additional mammographic imaging to evaluate a focal asymmetry of the upper outer quadrant of the left breast as noted on screening mammography from 12/09/2022. COMPARISON: Mammography: This study is compared with the prior mammograms dating back to 2019. TECHNIQUE: Digital breast tomosynthesis is performed in both the craniocaudal and mediolateral oblique views along with computer-aided detection (CAD). Synthesized 2D images are generated from the tomosynthesis. CC, lateral and MLO spot compression of the left breast was performed. FINDINGS: There are scattered areas of fibroglandular density (ACR BI-RADS breast composition Category b). Additional mammographic imaging reveals no persistent underlying abnormality in the region of the focal asymmetry. Benign calcifications are present. There are no significant masses, abnormal calcifications, or other abnormalities. ULTRASOUND: CLINICAL INFORMATION: Patient call back for focal asymmetry of the upper outer quadrant of the left breast. Sonography was performed to rule out an underlying abnormality. TECHNIQUE: Targeted sonographic evaluation was performed using a high frequency linear transducer. Selected archived documentation. FINDINGS: LEFT BREAST: There is a mixture of fatty and fibroglandular tissue. No suspicious mass is seen. There is no pathologic acoustic shadowing. MM/MM tomosynthesis added views L IMPRESSION: No mammographic evidence of malignancy. OVERALL ASSESSMENT: Mammography: BI-RADS 2 - Benign Findings Ultrasound: BI-RADS 2 - Benign Findings RECOMMENDATION: 1 year F/U Results were provided to the patient at time of visit by the technologist. This patient's information was entered into a reminder system with a target due date for their next mammogram.
== END 2023-01-18 09:26 | disposition home or self-care (01) ==
LOC: HO.MAMMO 09:25
PROVIDERS: PCP Internal Medicine; Visit Provider Internal Medicine
DX: N64.89 Other specified disorders of breast (principal)
CPT/HCPCS: 76642; 77061; 77065

== ENCOUNTER → 2023-01-18 09:30 | Outpatient (BNV) | payer MEDICARE, MEDICAID, SELFPAY | PROVIDERS: PCP Internal Medicine; Visit Provider Radiology Diagnostic Radiology | DX: R92.1 Mammographic calcification found on diagnostic imaging of breast (principal); R92.312 Mammographic fatty tissue density, left breast; R92.322 Mammographic fibroglandular density, left breast | CPT/HCPCS: 76642; 77061; 77065; G0279 ==

== ENCOUNTER 2023-04-27 13:56 | Outpatient (AMB) | payer MEDICARE, MEDICAID, SELFPAY ==
--- NOTE | 2023-04-27 13:58 | A.OFFPC_ITS ---
Vital Signs 04/27/23 13:59 Height 5 ft 2 in Weight 136 lb BMI 24.9 BP 104/68 Blood Pressure Location Lt brachial Position Sitting Pulse 90 Pulse Source Pulse Oximeter Pulse Oximetry (%) 100 Oxygen Delivery Method Room Air Intake Visit Reasons: right flank pain. Computer Applications Developer Required: No Occupational Hygienist: Not Required per policy Accompanied by: Self / Same As Patient Allergies hydrocodone [From VICODIN] Adverse Reaction (Intermediate, Verified 04/27/23 14:27) VOMMITING,DIZZY, NAUSEA tramadol [TRAMADOL] Adverse Reaction (Intermediate, Verified 04/27/23 14:27) NAUSEA & VOMITING oxycodone [From Percocet] Adverse Reaction (Mild, Verified 04/27/23 14:27) Formication Medication List - Last Reconciled 04/27/23 by Mario Pena MD acetaminophen 1,000 mg (2 x 500 mg) PO Q6H PRN cholecalciferol (vitamin D3) (Vitamin D3) 50 mcg PO DAILY 90 days fluticasone propionate 50 mcg/actuation 1 spray intranasal DAILY ibuprofen 600 mg PO Q6H PRN omeprazole 20 mg PO DAILY PRN 90 days polyethylene glycol 3350 (Miralax) 17 grams PO DAILY PRN Tobacco use date assessed: 04/27/23 Fall risk assessment: No Falls in past year Last assessed Fall Risk: 04/27/23 Dental Screening Dental Screen Date: 04/27/23 Did you have a dental visit in the last 12 months?: Yes Did you have a dental problem in the last 6 months where you did not have access to dental care?: No Was dental information given to patient?: Patient has dentist HPI right flank pain. HPI Details 67-year-old female presents to the [facility] for a sick visit. I am covering for her regular provider. Patient reports lower back pain since yesterday. Pain started in the right lower back. No radiation. Patient reports no urinary symptoms or symptoms of increased urination, burning etcetera. No vaginal discharge. Patient is worried because in the past she has had acute abdomen with perforated bowel. [facility] Medical History Dyslipidemia COVID-19 vaccine series completed Mild recurrent major depression Tachycardia Low TSH level Multinodular goiter Muscle ache Hypovitaminosis D Anxiety Surgical History History of surgery History of hernia repair (07/02/22) History of esophagogastroduodenoscopy (EGD) H/O colonoscopy History of reversal of ileostomy History of ileostomy History of ankle surgery History of tonsillectomy History of appendectomy Family History Father Colon cancer Mother Breast cancer Brother Brain cancer Paternal Uncle Lung cancer Sister Breast cancer Substance use disorder Daughter Mental health disorder Social History (System 01/11/23 @ 13:03 by Janene Melissa) Household Members: Friend(s) Housing: House Are you a primary plant health care technician to a significant other at home: No Do you presently have visiting nurse or other home services: No Alcohol intake: former Patient Tobacco Use Status: Former Tobacco user Quit Date: 2006 Tobacco use type: Cigarette e-Cigarette/Vaping Use: Never Used Second Hand Smoke Exposure: No Substance Use Type: Marijuana service: No Current occupational status: employed Current occupational exposures/hazards: No Cognitive needs: No Hearing needs: No Vision needs: No Questionnaire PHQ-9 Over the last 2 weeks, how often have you been bothered by any of the following problems? 1. Little interest or pleasure in doing things: several days 2. Feeling down, depressed, or hopeless: several days 3. Trouble falling or staying asleep, or sleeping too much: more than half the days 4. Feeling tired or having little energy: not at all 5. Poor appetite or overeating: several days 6. Feeling bad about yourself - or that you are a failure or have let yourself or your family down: not at all 7. Trouble concentrating on things, such as reading the newspaper or watching television: not at all 8. Moving or speaking so slowly that other people could have noticed. Or the opposite - being so fidgety or restless that you have been moving around a lot more than usual: not at all 9. Thoughts that you would be better off or of hurting yourself in some way: not at all Total score: 5 Depression Screening Interpretation: Positive Depression Screening Follow-up: Existing condition Depression Screening Done: Yes 89773 - PHQ-9 Billing: Yes Source: Developed by Drs. Manuel Hodges, Kimberly Brothers, Chuy Vivar and colleagues, with an educational aram from [employer]. Thrive Questionnaire Date Thrive assessed: 04/27/23 I am a: Patient What is your living situation today?: I have a steady place to live Within the past 12 months, did the food you bought not last and you didn't have the money to get more?: Never true Within the past 12 months, did you worry whether your food would run out before you got money to buy more?: Never true Do you have trouble paying for medicines?: No Do you have trouble getting transportation to medical appointments?: No Do you have trouble paying your heating and electricity bill?: No Do you have trouble taking care of your child, family member or friend?: No Do you have trouble with day-to-day activities such as bathing, preparing meals, shopping, managing finances, etc.?: No Are you currently unemployed and looking for a job?: No Are you interested in more education?: No Please select the resources that you would like help with: None THRIVE Score: 0 AUDIT C Alcohol Use Questionnaire (AUDIT-C) 1. How often do you have a drink containing alcohol?: Never Total Score: 0 BOSTON-7 AMB Questionnaire BOSTON-7 Date BOSTON - 7 assessed: 04/27/23 Feeling nervous, anxious, or on edge: 0 = Not at all Not being able to stop or control worryin = Not at all Worrying too much about different things: 0 = Not at all Trouble relaxin = Not at all Being so restless that it is hard to sit still: 0 = Not at all Becoming easily annoyed or irritable: 0 = Not at all Feeling afraid as if something awful might happen: 0 = Not at all Total BOSTON-7 score (0-4 normal; 5-9 mild; 10-14 moderate; 15-21 severe): 0 Source: Developed by Drs. Manuel Hodges, Kimberly [employer], Chuy Vivar and colleagues, with an educational aram from [employer]. Physical exam (Primary Care) Vital Signs: Last Vital Signs Pulse 90 04/27/23 13:59 BP 104/68 04/27/23 13:59 Pulse Ox 100 04/27/23 13:59 Oxygen Delivery Method Room Air 04/27/23 13:59 BMI result Body Mass Index 24.9 Tobacco/Smoking Status: Tobacco use Status Tobacco use date assessed 04/27/23 04/27/23 14:00 Patient Tobacco Use Status Former Tobacco user 04/27/23 14:00 Tobacco use type Cigarette 04/27/23 14:00 e-Cigarette/Vaping Use Never Used 04/27/23 14:00 PHQ-9: PHQ-9 Score PHQ-9: Total score 5 04/27/23 14:16 Depression Screening Interpretation: Positive Depression Screening Follow-up: Existing condition Thrive Assessment: Date of Thrive Assessment Date Thrive assessed 04/27/23 04/27/23 14:00 Const General: cooperative and healthy appearing Nutritional Appearance: well nourished Orientation/consciousness: patient oriented x3 Limitations: no limitations HENMT Head: Yes normal to inspection Eyes General: appearance normal, both eyes and all related structures Neck Neck: Yes normal visual inspection Chest Chest palpation & inspection: normal palpation of entire chest wall Resp Effort & Inspection: normal respiratory effort Neuro General: patient oriented x3 Assessment and Plan Assessment & Plan (1) Lower thoracic back pain: Code(s): M54.6 - Pain in thoracic spine Plan: Patient could not give a urine sample. No treatment has been started. Blood work has been ordered to rule out infection. Will call with results. Coding Level of Care Code Est Pt Level 3 (75064) Diagnoses Lower thoracic back pain M54.6
[2023-04-27 13:59] VITALS: BP 104/68; PULSE 90; O2SAT 100; BMI 24.9
== END 2023-04-27 14:55 | disposition home or self-care (01) ==
PROVIDERS: PCP Internal Medicine; Visit Provider Internal Medicine
DX: M54.6 Pain in thoracic spine (principal)
CPT/HCPCS: 99213

== ENCOUNTER 2023-04-27 15:00 | Outpatient (REF) | payer MEDICARE, MEDICAID, SELFPAY ==
[2023-04-27 16:09] LABS: Hematocrit 36.3 % (37.0-47.0); Hemoglobin 11.9 g/dl (12.0-16.0); Mean Corpuscular HGB Conc 32.8 g/dl (31.0-35.0); Mean Corpuscular Hemoglobin 29.6 pg (27.0-33.0); Mean Corpuscular Volume 90.3 fL (80.0-98.0); Mean Platelet Volume 9.7 fL (9.4-12.3); Platelet Count 390 X10*3/uL (160-400); Red Blood Count 4.02 X10*6/uL (4.20-5.50); Red Cell Distribution Width 13.2 % (11.0-16.0); White Blood Count 6.9 X10*3/uL (4.8-10.8)
[2023-04-27 16:33] LABS: Alanine Aminotransferase 18 U/L (0-31); Albumin Level 4.2 g/dL (3.5-5.0); Anion Gap 11 (12-20); Aspartate Amino Transferase 10 U/L (5-31); Bilirubin Direct 0.2 mg/dL (0.0-0.5); Bilirubin Total 0.6 mg/dL (0.0-1.0); Blood Urea Nitrogen 17 mg/dL (9-16); Calcium 9.4 mg/dL (8.4-10.2); Carbon Dioxide 27 mmol/L (22-29); Chloride 104 mmol/L (96-108); Estimated Glomerular Filt Rate > 60; Glucose Random 87 mg/dL (60-115); Potassium 3.7 mmol/L (3.3-5.1); Sodium 138 mmol/L (135-145); Total Protein 6.8 g/dL (6.5-8.0)
[2023-04-27 17:02] LABS: Alkaline Phosphatase 82 U/L (39-117)
[2023-04-27 17:08] LABS: Appearance Urine Clear; Color Urine Yellow; Glucose Urine UA Negative (Negative); Leukocyte Esterase Urine Moderate (2+) (Negative); Nitrite Urine Negative (Negative); PH 5.5 (5.0-9.0); Specific Gravity - Urine <= 1.005 (1.005-1.025); UMIC TRIGGER UA YES; Urine Blood Negative (Negative); Urine Ketones Negative (Negative); Urine Protein Negative (Neg-Trace)
[2023-04-27 17:11] LABS: Bacteria Urine None Seen (None Seen); Hyaline Casts Urine 0-2 /LPF (0-2); RBC Urine 0-2 /HPF (0-2); Squamous Epithelial Cell Urine 0-2 /HPF (0-2)
[2023-04-27 17:24] LABS: Erythrocyte Sedimentation Rate 7 MM/HR (0-20)
== END 2023-04-27 15:01 | disposition home or self-care (01) ==
LOC: HO.LAB 15:00
PROVIDERS: PCP Internal Medicine; Visit Provider Internal Medicine
DX: M54.6 Pain in thoracic spine (principal)
CPT/HCPCS: 36415; 80048; 80076; 81001; 81003; 85027; 85652

== ENCOUNTER 2023-06-23 10:28 | Outpatient (AMB) | payer MEDICARE, MEDICAID, SELFPAY ==
--- NOTE | 2023-06-23 10:30 | MHC.PC.OV ---
Vital Signs 06/23/23 10:31 Height 5 ft 2 in Weight 132 lb BMI 24.1 BP 118/72 Blood Pressure Location Lt brachial Position Sitting Intake Visit Reasons: 6 month f/u Intake Note: Patient here for a 6 month follow up Sap Data Architect Required: No Accompanied by: Self / Same As Patient Allergies hydrocodone [From VICODIN] Adverse Reaction (Intermediate, Verified 06/23/23 10:40) VOMMITING,DIZZY, NAUSEA tramadol [TRAMADOL] Adverse Reaction (Intermediate, Verified 06/23/23 10:40) NAUSEA & VOMITING oxycodone [From Percocet] Adverse Reaction (Mild, Verified 06/23/23 10:40) Formication Medication List - Last Reconciled 06/23/23 by Brittany Elizabeth MD acetaminophen 1,000 mg (2 x 500 mg) PO Q6H PRN cholecalciferol (vitamin D3) (Vitamin D3) 50 mcg PO DAILY 90 days fluticasone propionate 50 mcg/actuation 1 spray intranasal DAILY ibuprofen 600 mg PO Q6H PRN omeprazole 20 mg PO DAILY PRN 90 days polyethylene glycol 3350 (Miralax) 17 grams PO DAILY PRN Tobacco use date assessed: 04/27/23 Fall risk assessment: No Falls in past year Last assessed Fall Risk: 06/23/23 HPI HPI Comments History of Present Illness Details This is a 68-year-old female with GERD, allergic rhinitis, constipation and low vitamin-D that complains of blurry vision bilateral with some tearing and itchiness. I advised her to start Pataday [id number]. She has ophthalmology appointment in October 2023 but would like to be seen before and I refer her to [facility]. GERD stable with PPIs. On Flonase for her allergic rhinitis which has been require more often. On vitamin-D supplements for low vitamin-D. Constipation stable with medications as needed. [facility] Medical History (Updated 06/23/23 @ 12:13 by Brittany Elizabeth MD) Hypovitaminosis D Dyslipidemia COVID-19 vaccine series completed Mild recurrent major depression Tachycardia Low TSH level Multinodular goiter Muscle ache Anxiety Surgical History History of surgery History of hernia repair (07/02/22) History of esophagogastroduodenoscopy (EGD) H/O colonoscopy History of reversal of ileostomy History of ileostomy History of ankle surgery History of tonsillectomy History of appendectomy Family History Father Colon cancer Mother Breast cancer Brother Brain cancer Paternal Uncle Lung cancer Sister Breast cancer Substance use disorder Daughter Mental health disorder Social History Household Members: Friend(s) Housing: House Are you a primary director of healthcare systems to a significant other at home: No Do you presently have visiting nurse or other home services: No Alcohol intake: former Patient Tobacco Use Status: Former Tobacco user Quit Date: 2006 Tobacco use type: Cigarette e-Cigarette/Vaping Use: Never Used Second Hand Smoke Exposure: No Substance Use Type: Marijuana service: No Current occupational status: employed Current occupational exposures/hazards: No Cognitive needs: No Hearing needs: No Vision needs: No Questionnaire Thrive Questionnaire Date Thrive assessed: 06/23/23 I am a: Patient What is your living situation today?: I have a steady place to live Within the past 12 months, did the food you bought not last and you didn't have the money to get more?: Never true Within the past 12 months, did you worry whether your food would run out before you got money to buy more?: Never true Do you have trouble paying for medicines?: No Do you have trouble getting transportation to medical appointments?: No Do you have trouble paying your heating and electricity bill?: No Do you have trouble taking care of your child, family member or friend?: No Do you have trouble with day-to-day activities such as bathing, preparing meals, shopping, managing finances, etc.?: No Are you currently unemployed and looking for a job?: No Are you interested in more education?: No Please select the resources that you would like help with: None Currently or been in a relationship where the following occur: no concerns reported THRIVE Score: 0 AUDIT C Alcohol Use Questionnaire (AUDIT-C) 1. How often do you have a drink containing alcohol?: Never Total Score: 0 Score Reviewed/Action Taken: No BOSTON-7 AMB Questionnaire BOSTON-7 Date BOSTON - 7 assessed: 06/23/23 Feeling nervous, anxious, or on edge: 0 = Not at all Not being able to stop or control worryin = Not at all Worrying too much about different things: 0 = Not at all Trouble relaxin = Not at all Being so restless that it is hard to sit still: 0 = Not at all Becoming easily annoyed or irritable: 0 = Not at all Feeling afraid as if something awful might happen: 0 = Not at all Total BOSTON-7 score (0-4 normal; 5-9 mild; 10-14 moderate; 15-21 severe): 0 Source: Developed by Drs. Manuel Hodges, Kimberly Brothers, Chuy Vivar and colleagues, with an educational aram from [employer]. BOSTON-7 Assessment Billing BOSTON-7 Assessment Tool: BOSTON-7 Assessment 60822 Review of Systems Const All systems reviewed & are unremarkable except as noted in HPI and below Eyes Reports no additional complaints, Denies change in vision and Denies other visual disturbances Card Denies chest pain at rest, Denies chest pain with activity, Denies edema, Denies irregular heart rhythm, Denies claudication, Denies dyspnea, Denies dyspnea on exertion, Denies orthopnea, Denies paroxysmal nocturnal dyspnea and Denies slow heart rate Resp Denies cough, Denies dyspnea and Denies dyspnea on exertion GI Denies abdominal pain, Denies change in bowel habits, Denies excessive flatus, Denies nausea and Denies vomiting Denies urinary incontinence, Denies urinary hesitancy and Denies urinary urgency Physical exam (Primary Care) Vital Signs: Last Vital Signs BP 118/72 06/23/23 10:31 BMI result Body Mass Index 24.1 Tobacco/Smoking Status: Tobacco use Status Tobacco use date assessed 04/27/23 06/23/23 10:36 Patient Tobacco Use Status Former Tobacco user 06/23/23 10:36 Tobacco use type Cigarette 06/23/23 10:36 e-Cigarette/Vaping Use Never Used 06/23/23 10:36 Thrive Assessment: Date of Thrive Assessment Date Thrive assessed 06/23/23 06/23/23 10:36 Currently or been in a relationship where the following occur: no concerns reported Resp Effort & Inspection: normal respiratory effort Auscultation: clear to auscultation bilaterally Cardio Jugular venous distension: no JVD Rate: regular rate Rhythm: regular rhythm Heart sounds: S1 normal heart sound present and S2 normal heart sound present Extrem General: Yes full ROM Psych Appearance: grossly normal Assessment and Plan Assessment & Plan (1) GERD (gastroesophageal reflux disease): Code(s): K21.9 - Gastro-esophageal reflux disease without esophagitis Qualifiers: Esophagitis presence: with esophagitis Esophagitis bleeding: without hemorrhage Qualified Code(s): K21.00 - Gastro-esophageal reflux disease with esophagitis, without bleeding Plan: Continue PPIs. (2) Constipation by delayed colonic transit: Code(s): K59.01 - Slow transit constipation Plan: Continue MiraLax as needed. (3) Hypovitaminosis D: Code(s): E55.9 - Vitamin D deficiency, unspecified Plan: Continue vitamin-D supplement. (4) Allergic rhinitis: Code(s): J30.9 - Allergic rhinitis, unspecified Plan: Continue Flonase as needed. (5) Blurry vision: Code(s): H53.8 - Other visual disturbances Plan: Start Pataday. Referred to Ophthalmology. Orders: Orders Complete Blood Count Auto Diff 5 Months D64.9 - Anemia, unspecified IRON PROFILE 5 Months D64.9 - Anemia, unspecified Vitamin D 25-OH Total 5 Months E55.9 - Vitamin D deficiency, unspecified Lipid Panel 5 Months E78.5 - Hyperlipidemia, unspecified Comprehensive [place]. Panel Fast 5 Months E78.5 - Hyperlipidemia, unspecified Referrals Ophthalmology Referral H53.8 - Other visual disturbances Medications: Refilled fluticasone propionate 50 mcg/actuation 1 spray intranasal DAILY 16 mL 11RF Coding Level of Care Code Est Pt Level 4 (80230) Diagnoses Gastroesophageal reflux disease with esophagitis without hemorrhage K21.00 Esophagitis presence: with esophagitis Esophagitis bleeding: without hemorrhage Constipation by delayed colonic transit K59.01 Hypovitaminosis D E55.9 Allergic rhinitis J30.9 Blurry vision H53.8 Additional Codes BOSTON-7 Assessment Billing - BOSTON-7 Assessment Tool: BOSTON-7 Assessment 82441 ([id number]) Time Spent (min) 21
[2023-06-23 10:31] VITALS: BP 118/72; BMI 24.1
== END 2023-06-23 10:53 | disposition home or self-care (01) ==
PROVIDERS: PCP Internal Medicine; Visit Provider Internal Medicine
DX: K21.00 Gastro-esophageal reflux disease with esophagitis, without bleeding (principal); K59.01 Slow transit constipation; E55.9 Vitamin D deficiency, unspecified; J30.9 Allergic rhinitis, unspecified; H53.8 Other visual disturbances
CPT/HCPCS: 99214

== ENCOUNTER 2023-07-07 13:45 | Outpatient (AMB) | payer MEDICARE, MEDICAID, SELFPAY ==
--- NOTE | 2023-07-07 14:05 | MHC.PC.OV ---
Vital Signs 07/07/23 14:06 Height 5 ft 2 in Weight 131 lb BMI 24.0 BP 136/86 Blood Pressure Location Lt brachial Position Sitting Pulse 76 Pulse Source Pulse Oximeter Pulse Oximetry (%) 98 Oxygen Delivery Method Room Air Intake Visit Reasons: cataract 07/11 Intake Note: Patient here for cataract clearance scheduled for 07/12/23 Emergency Department Clinician Required: No Accompanied by: Self / Same As Patient Allergies hydrocodone [From VICODIN] Adverse Reaction (Intermediate, Verified 07/07/23 14:20) VOMMITING,DIZZY, NAUSEA tramadol [TRAMADOL] Adverse Reaction (Intermediate, Verified 07/07/23 14:20) NAUSEA & VOMITING oxycodone [From Percocet] Adverse Reaction (Mild, Verified 07/07/23 14:20) Formication Medication List - Last Reconciled 07/07/23 by Brittany Elizabeth MD acetaminophen 1,000 mg (2 x 500 mg) PO Q6H PRN cholecalciferol (vitamin D3) (Vitamin D3) 50 mcg PO DAILY 90 days fluticasone propionate 50 mcg/actuation 1 spray intranasal DAILY ibuprofen 600 mg PO Q6H PRN omeprazole 20 mg PO DAILY PRN 90 days polyethylene glycol 3350 (Miralax) 17 grams PO DAILY PRN Tobacco use date assessed: 04/27/23 Fall risk assessment: No Falls in past year Last assessed Fall Risk: 07/07/23 Dental Screening Dental Screen Date: 04/27/23 HPI HPI Comments History of Present Illness Details This is a 68-year-old female with GERD, constipation low vitamin-D that comes for preop evaluation of cataract extraction and intraocular lens implant scheduled for July 13 on the left eye and 08/16/2023 in the right eye. GERD stable with PPIs. Constipation well controlled with MiraLax as needed. On vitamin-D supplements for her low vitamin-D. EKG and labs are still pending for medical clearance. This is a low risk patient for low risk surgery. Has 5-7 Mets of ADLs. Denies any chest pain or shortness of breath at rest or on exertion. [facility] Medical History Hypovitaminosis D Dyslipidemia COVID-19 vaccine series completed Mild recurrent major depression Tachycardia Low TSH level Multinodular goiter Muscle ache Anxiety Surgical History History of surgery History of hernia repair (07/02/22) History of esophagogastroduodenoscopy (EGD) H/O colonoscopy History of reversal of ileostomy History of ileostomy History of ankle surgery History of tonsillectomy History of appendectomy Family History Father Colon cancer Mother Breast cancer Brother Brain cancer Paternal Uncle Lung cancer Sister Breast cancer Substance use disorder Daughter Mental health disorder Social History Household Members: Friend(s) Housing: House Are you a primary health care attorney to a significant other at home: No Do you presently have visiting nurse or other home services: No Alcohol intake: former Patient Tobacco Use Status: Former Tobacco user Quit Date: 2006 Tobacco use type: Cigarette e-Cigarette/Vaping Use: Never Used Second Hand Smoke Exposure: No Substance Use Type: Marijuana service: No Current occupational status: employed Current occupational exposures/hazards: No Cognitive needs: No Hearing needs: No Vision needs: No Questionnaire Thrive Questionnaire Date Thrive assessed: 06/23/23 BOSTON-7 AMB Questionnaire BOSTON-7 Date BOSTON - 7 assessed: 06/23/23 Source: Developed by Drs. Manuel Hodges, Kimberly [employer], Chuy Vivar and colleagues, with an educational aram from [employer]. Review of Systems Const All systems reviewed & are unremarkable except as noted in HPI and below Eyes Reports no additional complaints, Denies change in vision and Denies other visual disturbances Card Denies chest pain at rest, Denies chest pain with activity, Denies edema, Denies irregular heart rhythm, Denies claudication, Denies dyspnea, Denies dyspnea on exertion, Denies orthopnea, Denies paroxysmal nocturnal dyspnea and Denies slow heart rate Resp Denies cough, Denies dyspnea and Denies dyspnea on exertion Physical exam (Primary Care) Vital Signs: Last Vital Signs Pulse 76 07/07/23 14:06 BP 136/86 07/07/23 14:06 Pulse Ox 98 07/07/23 14:06 Oxygen Delivery Method Room Air 07/07/23 14:06 BMI result Body Mass Index 24.0 Tobacco/Smoking Status: Tobacco use Status Tobacco use date assessed 04/27/23 07/07/23 14:10 Patient Tobacco Use Status Former Tobacco user 07/07/23 14:10 Tobacco use type Cigarette 07/07/23 14:10 e-Cigarette/Vaping Use Never Used 07/07/23 14:10 Thrive Assessment: Date of Thrive Assessment Date Thrive assessed 06/23/23 07/07/23 14:10 Const Orientation/consciousness: patient oriented x3 Neck Neck: Yes normal visual inspection and Yes supple Resp Effort & Inspection: normal respiratory effort Auscultation: clear to auscultation bilaterally Cardio Jugular venous distension: no JVD Rate: regular rate Rhythm: regular rhythm Heart sounds: S1 normal heart sound present and S2 normal heart sound present Neuro General: patient oriented x3 and no focal motor deficits Extrem General: Yes full ROM Psych Appearance: grossly normal Assessment and Plan Assessment & Plan (1) Pre-op evaluation: Code(s): Z01.818 - Encounter for other preprocedural examination Plan: EKG and labs pending for medical clearance. (2) GERD (gastroesophageal reflux disease): Code(s): K21.9 - Gastro-esophageal reflux disease without esophagitis Qualifiers: Esophagitis presence: with esophagitis Esophagitis bleeding: without hemorrhage Qualified Code(s): K21.00 - Gastro-esophageal reflux disease with esophagitis, without bleeding Plan: Continue PPIs. (3) Constipation by delayed colonic transit: Code(s): K59.01 - Slow transit constipation Plan: Continue MiraLax as needed. (4) Hypovitaminosis D: Code(s): E55.9 - Vitamin D deficiency, unspecified Plan: Continue vitamin-D supplements. Orders: Orders ECG 12 lead EKG Today Z01.818 - Encounter for other preprocedural examination Medications: New olopatadine 0.2% (Pataday Once Daily Relief) 1 drp ophthalmic (eye) DAILY PRN 2.5 mL 6RF itching 30 days Coding Level of Care Code Est Pt Level 4 (25042) Diagnoses Pre-op evaluation Z01.818 Gastroesophageal reflux disease with esophagitis without hemorrhage K21.00 Esophagitis presence: with esophagitis Esophagitis bleeding: without hemorrhage Constipation by delayed colonic transit K59.01 Hypovitaminosis D E55.9 Time Spent (min) 22
[2023-07-07 14:06] VITALS: BP 136/86; PULSE 76; O2SAT 98; BMI 24.0
== END 2023-07-07 14:36 | disposition home or self-care (01) ==
PROVIDERS: PCP Internal Medicine; Visit Provider Internal Medicine
DX: K21.00 Gastro-esophageal reflux disease with esophagitis, without bleeding (principal); Z01.818 Encounter for other preprocedural examination; K59.01 Slow transit constipation; E55.9 Vitamin D deficiency, unspecified
CPT/HCPCS: 99214

== ENCOUNTER → 2023-07-08 10:59 | Outpatient (REF) | payer MEDICARE, MEDICAID, SELFPAY ==
--- NOTE | 2023-07-08 11:05 | ECG_ITS ---
Test Reason : PRE OP Blood Pressure : / mmHG Vent. Rate : 068 BPM Atrial Rate : 068 BPM P-R Int : 140 ms QRS Dur : 090 ms QT Int : 410 ms P-R-T Axes : 038 002 016 degrees QTc Int : 435 ms Normal sinus rhythm Nonspecific ST abnormality Abnormal ECG When compared with ECG of 08-APR-2016 16:24, Aberrant conduction is no longer Present Referred By: Brittany Elizabeth Electronically Signed By:José Miguel Albarran
[2023-07-08 11:18] LABS: MANUAL DIFF FLAG NO
[2023-07-08 11:48] LABS: Basophils Percent Auto 0.6 % (0-2); Eosinophils Absolute Auto 0.2 X10*3/uL (0.0-0.4); Eosinophils Percent Auto 3.7 % (0-4); Hematocrit 36.6 % (37.0-47.0); Hemoglobin 12.4 g/dl (12.0-16.0); Imm Gran Abs Auto 0.02 X10*3/uL (0.00-0.03); Imm Gran Pct Auto 0.4 % (0.0-0.4); Lymphocytes Absolute Auto 2.1 X10*3/uL (1.2-4.9); Lymphocytes Percent Auto 39.7 % (20-40); Mean Corpuscular HGB Conc 33.9 g/dl (31.0-35.0); Mean Corpuscular Hemoglobin 29.7 pg (27.0-33.0); Mean Corpuscular Volume 87.8 fL (80.0-98.0); Mean Platelet Volume 9.1 fL (9.4-12.3); Monocytes Absolute Auto 0.3 X10*3/uL (0.1-1.2); Monocytes Percent Auto 4.8 % (2-11); Neutrophils Absolute Auto 2.7 x10*3/uL (2.0-8.3); Neutrophils Percent Auto 50.8 % (45-73); Platelet Count 512 X10*3/uL (160-400); Red Blood Count 4.17 X10*6/uL (4.20-5.50); Red Cell Distribution Width 13.2 % (11.0-16.0); White Blood Count 5.4 X10*3/uL (4.8-10.8)
[2023-07-08 12:28] LABS: Alanine Aminotransferase 17 U/L (0-31); Albumin Level 4.2 g/dL (3.5-5.0); Alkaline Phosphatase 89 U/L (39-117); Anion Gap 11 (12-20); Aspartate Amino Transferase 11 U/L (5-31); Bilirubin Total 0.7 mg/dL (0.0-1.0); Blood Urea Nitrogen 16 mg/dL (9-16); Calcium 9.6 mg/dL (8.4-10.2); Carbon Dioxide 25 mmol/L (22-29); Chloride 107 mmol/L (96-108); Cholesterol 220 mg/dL (<200); Estimated Glomerular Filt Rate > 60; Glucose Fasting 108 mg/dL (60-99); HDL Cholesterol 77 mg/dL (>40); Iron 101 mcg/dL (30-160); LDL Cholesterol Calculated 133 mg/dL (<100); Percent Iron Saturation 32 % (15-50); Sodium 139 mmol/L (135-145); Total Iron Binding Capacity 316 mcg/dL (228-428); Total Protein 7.1 g/dL (6.5-8.0); Triglycerides 51 mg/dL (<150); Unsaturated Iron Binding 215 ug/dL
[2023-07-08 12:37] LABS: Vitamin D 25-OH Total 58.6 ng/mL (>30)
== END ==
LOC: HO.CARD 10:59
PROVIDERS: PCP Internal Medicine; Visit Provider Internal Medicine
DX: Z01.818 Encounter for other preprocedural examination (principal); D64.9 Anemia, unspecified; E78.5 Hyperlipidemia, unspecified; E55.9 Vitamin D deficiency, unspecified
CPT/HCPCS: 36415; 80053; 80061; 82306; 83540; 85025; 93005

== ENCOUNTER → 2023-07-08 11:05 | Outpatient (BNV) | payer MEDICARE, MEDICAID, SELFPAY | PROVIDERS: PCP Internal Medicine; Visit Provider Internal Medicine Cardiovascular Disease | DX: Z01.810 Encounter for preprocedural cardiovascular examination (principal) | CPT/HCPCS: 93010 ==

== ENCOUNTER 2023-08-02 09:27 | Outpatient (REF) | payer MEDICARE, MEDICAID, SELFPAY ==
--- NOTE | ~2023-08-02 | US_ITS ---
EXAMINATION: US THYROID CLINICAL INFORMATION: Nontoxic multinodular goiter. COMPARISON: Thyroid ultrasound 07/29/2022 and 10/14/2020. Ultrasound-guided thyroid biopsy 04/14/2018. TECHNIQUE: Linear transducer grayscale and color Doppler examination with attention to the region of the thyroid. FINDINGS: SIZE: Measurements of the thyroid lobes and nodules are given in sagittal, anteroposterior and transverse dimensions respectively. Right Thyroid Lobe: 6.4 x 2.7 x 2.7 cm, volume 23.8 mL. Previously 6.5 x 2.6 x 2.4 cm, volume 21.8 mL. Parenchyma: The gland echotexture is homogeneous. Thyroid vascularity is increased. Left Thyroid Lobe: 5.8 x 2.6 x 2.4 cm, volume 18.8 mL. Previously 6.7 x 2.6 x 2.6 cm, volume 23.8 mL. Parenchyma: The gland echotexture is homogeneous. Thyroid vascularity is increased. Isthmus: 0.6 cm in maximum AP dimension. Previously 0.5 cm. Estimated total number of nodules greater than or equal to 1 cm: 4. [employer] nodules are described as follows: 1. Location: Left mid pole. Size: 1.6 x 0.9 x 1.3 cm, volume 0.9 mL. Previously: 1.5 x 1.0 x 1.1 cm, volume 0.9 mL. Nodule characteristics: Composition: Mixed cystic and solid (1). Echogenicity: Isoechoic (1). Shape: Not taller than wide (0). Margins: Smooth (0). Echogenic Foci: None (0). ACR TI-RADS total points: 2 ACR TI-RADS category: 2 Significant change in size (>/= 20% in 2 dimensions and minimal increase of 2 mm or 50% or greater increase in volume): No Change in features: Not with accounting for differences in interobserver variability, as imaging findings appear similar to prior. 2. Location: Left lower pole. Size: 2.4 x 2.4 x 2.3 cm, volume 6.7 mL. Previously: 1.9 x 1.7 x 1.7 cm, volume 2.9 mL. Nodule characteristics: Composition: Solid/almost completely solid (2). Echogenicity: Isoechoic (1). Shape: Not taller than wide (0). Margins: Ill-defined (0). Echogenic Foci: None (0). ACR TI-RADS total points: 3 ACR TI-RADS category: 3 Significant change in size (>/= 20% in 2 dimensions and minimal increase of 2 mm or 50% or greater increase in volume): Yes Change in features: Not with accounting for differences in interobserver variability, as imaging findings appear similar to prior. 3. Location: Right mid pole. Size: 0.6 x 0.5 x 0.6 cm, volume 0.09 mL. Previously: Not measured. Nodule characteristics: Composition: Solid/almost completely solid (2). Echogenicity: Isoechoic (1). Shape: Not taller than wide (0). Margins: Ill-defined (0). Echogenic Foci: None (0). ACR TI-RADS total points: 3 ACR TI-RADS category: 3 4. Location: Right lower pole. Size: 1.9 x 1.5 x 1.6 cm, volume 2.4 mL. Previously: 1.6 x 1.5 x 1.3 cm, volume 1.6 mL. Nodule characteristics: Composition: Solid/almost completely solid (2). Echogenicity: Isoechoic (1). Shape: Not taller than wide (0). Margins: Ill-defined (0). Echogenic Foci: Macrocalcifications (1). ACR TI-RADS total points: 4 ACR TI-RADS category: 4 Significant change in size (>/= 20% in 2 dimensions and minimal increase of 2 mm or 50% or greater increase in volume): Yes Change in features: No 5. Location: Right mid pole. Size: 1.0 x 0.7 x 1.0 cm, volume 0.4 mL. Previously: 1.0 x 0.6 x 0.6 cm, volume 0.2 mL. Nodule characteristics: Composition: Spongiform (0). ACR TI-RADS total points: 0 ACR TI-RADS category: 1 Significant change in size (>/= 20% in 2 dimensions and minimal increase of 2 mm or 50% or greater increase in volume): Yes Change in features: No NODES: No lymphadenopathy is seen in the tissue surrounding the thyroid gland. US/US thyroid IMPRESSION: A 1.9 cm TR 4 right thyroid nodule is increased in size. This meets criteria for tissue sampling if not already obtained. A 2.4 cm TR 3 left thyroid nodule is increased in size from prior recommend one-year follow-up thyroid ultrasound. Additional thyroid nodules as detailed above which do not meet criteria for follow-up. Hypervascular thyroid, seen in the setting of thyroiditis. ACR TI-RADS RECOMMENDATION REFERENCE: Ultrasound-guided fine-needle aspiration, follow up ultrasound, no further followup. * TR1 (0 point) and TR2 (2 points): No FNA or followup * TR3 (3 points): FNA if more than or equal to 2.5 cm in maximum dimension, follow up ultrasound in 1, 3 and 5 years if 1.5 to 2.4 cm in maximum dimension. * TR4 (4-6 points): FNA if more than or equal to 1.5 cm in maximum dimension, follow up ultrasound in 1, 2, 3 and 5 years if 1 to 1.4 cm in maximum dimension. * TR5 (more than or equal to 7 points): FNA if more than or equal to 1 cm in maximum dimension, follow up ultrasound every year for 5 years if 0.5 to 0.9 cm in maximum dimension. * TR3, TR4 or TR5 nodules that are below the size threshold for follow up receive no followup.
== END 2023-08-02 09:28 | disposition home or self-care (01) ==
LOC: HO.US 09:27
PROVIDERS: PCP Internal Medicine; Visit Provider Internal Medicine Endocrinology, Diabetes & Metabolism
DX: E04.2 Nontoxic multinodular goiter (principal)
CPT/HCPCS: 76536

== ENCOUNTER 2023-09-01 16:04 | Outpatient (AMB) | payer MEDICARE, MEDICAID, SELFPAY ==
--- NOTE | 2023-09-01 16:05 | MHC.OFFVIS ---
Vital Signs 09/01/23 16:06 Height 5 ft 2 in Weight 134 lb 4.184 oz BMI 24.6 BP 100/60 Blood Pressure Location Rt brachial Position Sitting Pulse 95 Pulse Source Pulse Oximeter Intake Visit Reasons: F/Up MNG/lvm Intake Note: Patient present today for MNG follow up visit. 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 Accompanied by: Self / Same As Patient Allergies hydrocodone [From VICODIN] Adverse Reaction (Intermediate, Verified 09/01/23 16:07) VOMMITING,DIZZY, NAUSEA tramadol [TRAMADOL] Adverse Reaction (Intermediate, Verified 09/01/23 16:07) NAUSEA & VOMITING oxycodone [From Percocet] Adverse Reaction (Mild, Verified 09/01/23 16:07) Formication Medication List - Last Reconciled 09/01/23 by Manuel Tong MD acetaminophen 1,000 mg (2 x 500 mg) PO Q6H PRN cholecalciferol (vitamin D3) (Vitamin D3) 50 mcg PO DAILY 90 days fluticasone propionate 50 mcg/actuation 1 spray intranasal DAILY ibuprofen 600 mg PO Q6H PRN olopatadine 0.2% (Pataday Once Daily Relief) 1 drp ophthalmic (eye) DAILY PRN 30 days omeprazole 20 mg PO DAILY PRN 90 days polyethylene glycol 3350 (Miralax) 17 grams PO DAILY PRN HPI Comments Details: This is a 67-year-old female with a history of multinodular goiter . She underwent a fine-needle aspiration of left lower pole nodule on 04/14/2018 with benign cytology . She also has a right dominant thyroid nodule status post FNA and [facility] with benign cytology. Recent ultrasound showed increases in the size of the right left lower pole nodules PENDING SALE TO [facility] Medical History Hypovitaminosis D Dyslipidemia COVID-19 vaccine series completed Mild recurrent major depression Tachycardia Low TSH level Multinodular goiter Muscle ache Anxiety Surgical History Hx of cataract surgery History of surgery History of hernia repair (07/02/22) History of esophagogastroduodenoscopy (EGD) H/O colonoscopy History of reversal of ileostomy History of ileostomy History of ankle surgery History of tonsillectomy History of appendectomy Family History Father Colon cancer Mother Breast cancer Brother Brain cancer Paternal Uncle Lung cancer Sister Breast cancer Substance use disorder Daughter Mental health disorder Social History Household Members: Friend(s) Housing: House Are you a primary long term care pharmacist to a significant other at home: No Do you presently have visiting nurse or other home services: No Alcohol intake: former Patient Tobacco Use Status: Former Tobacco user Tobacco use type: Cigarette e-Cigarette/Vaping Use: Never Used Second Hand Smoke Exposure: No Substance Use Type: Marijuana service: No Current occupational status: employed Current occupational exposures/hazards: No Cognitive needs: No Hearing needs: No Vision needs: No Physical Exam Vital Signs: Last Vital Signs Pulse 95 09/01/23 16:06 BP 100/60 09/01/23 16:06 BMI result Body Mass Index 24.6 Const Other: Thyroid gland is of normal size weighs by 15 g. There are no thyroid nodules palpated. Assessment & Plan Assessment & Plan (1) Multinodular goiter: Code(s): E04.2 - Nontoxic multinodular goiter Category: Medical Plan: This is a 68-year-old white female with a history of multinodular goiter status post FNA of left lower pole nodule with benign cytology. She is status post FNA of right thyroid nodule [facility] with benign cytology She appears to be clinically . Recent thyroid ultrasound showsincrease in in the size of left lower pole nodule and right lower pole nodule Plan is to recheck TSH and free T4. Will talk to the patient about options of either observation versus reaspiration of right and/or left lower pole nodule versus surgery. After discussing these options with patient, we decided to have her follow-up with Dr. Adriel matt health/safety job titles starting the practice in October 2023 health/safety job titles with expertise in thyroid ultrasound for 2nd opinion Orders: Orders Thyroid Stimulating Hormone Today E04.2 - Nontoxic multinodular goiter Free T4 (Free Thyroxine) Today E04.2 - Nontoxic multinodular goiter Coding Level of Care Code Est Pt Level 3 (71452) Diagnoses Multinodular goiter E04.2
[2023-09-01 16:06] VITALS: BP 100/60; PULSE 95; BMI 24.6
== END 2023-09-01 16:34 | disposition home or self-care (01) ==
PROVIDERS: PCP Internal Medicine; Visit Provider Internal Medicine Endocrinology, Diabetes & Metabolism
DX: E04.2 Nontoxic multinodular goiter (principal)
CPT/HCPCS: 99213

== ENCOUNTER → 2023-09-01 16:04 | Outpatient (BNVA) | payer MEDICARE, MEDICAID, SELFPAY | PROVIDERS: PCP Internal Medicine; Visit Provider Internal Medicine Endocrinology, Diabetes & Metabolism | DX: E04.2 Nontoxic multinodular goiter (principal) | CPT/HCPCS: 99212 ==

== ENCOUNTER 2023-11-22 10:02 | Outpatient (AMB) | payer MEDICARE, MEDICAID, SELFPAY ==
--- NOTE | 2023-11-22 10:05 | MHC.PC.OV ---
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 Accompanied by: Self / Same As Patient Allergies hydrocodone [From VICODIN] Adverse Reaction (Intermediate, Verified 11/22/23 10:14) VOMMITING,DIZZY, NAUSEA tramadol [TRAMADOL] Adverse Reaction (Intermediate, Verified 11/22/23 10:14) NAUSEA & VOMITING oxycodone [From Percocet] Adverse Reaction (Mild, Verified 11/22/23 10:14) Formication Tobacco use date assessed: 04/27/23 Fall risk assessment: No Falls in past year Last assessed Fall Risk: 11/22/23 Dental Screening Dental Screen Date: 11/22/23 Did you have a dental visit in the last 12 months?: Yes Did you have a dental problem in the last 6 months where you did not have access to dental care?: No Was dental information given to patient?: Patient has dentist [facility] Medical History Hypovitaminosis D Dyslipidemia COVID-19 vaccine series completed Mild recurrent major depression Tachycardia Low TSH level Multinodular goiter Muscle ache Anxiety Surgical History Hx of cataract surgery History of surgery History of hernia repair (07/02/22) History of esophagogastroduodenoscopy (EGD) H/O colonoscopy History of reversal of ileostomy History of ileostomy History of ankle surgery History of tonsillectomy History of appendectomy Family History Father Colon cancer Mother Breast cancer Brother Brain cancer Paternal Uncle Lung cancer Sister Breast cancer Substance use disorder Daughter Mental health disorder Social History Household Members: Friend(s) Housing: House Are you a primary career coach to a significant other at home: No Do you presently have visiting nurse or other home services: No Alcohol intake: former Patient Tobacco Use Status: Former Tobacco user Tobacco use type: Cigarette e-Cigarette/Vaping Use: Never Used Second Hand Smoke Exposure: No Substance Use Type: Marijuana service: No Current occupational status: employed Current occupational exposures/hazards: No Cognitive needs: No Hearing needs: No Vision needs: No Questionnaire Thrive Questionnaire Date Thrive assessed: 06/23/23 BOSTON-7 AMB Questionnaire BOSTON-7 Date BOSTON - 7 assessed: 06/23/23 Source: Developed by Drs. Manuel Hodges, [employer], Chuy Vivar and colleagues, with an educational aram from [employer]. Physical exam (Primary Care) Vital Signs: Last Vital Signs BP 126/72 11/22/23 10:08 BMI result Body Mass Index 24.9 Tobacco/Smoking Status: Tobacco use Status Tobacco use date assessed 04/27/23 11/22/23 10:14 Patient Tobacco Use Status Former Tobacco user 11/22/23 10:14 Tobacco use type Cigarette 11/22/23 10:14 e-Cigarette/Vaping Use Never Used 11/22/23 10:14 Thrive Assessment: Date of Thrive Assessment Date Thrive assessed 06/23/23 11/22/23 10:14 Coding
[2023-11-22 10:08] VITALS: BP 126/72; BMI 24.9
--- NOTE | 2023-11-22 10:21 | AM.OFFVISMDC ---
Intake Vital Signs 11/22/23 10:08 Height 5 ft 2 in Weight 136 lb BMI 24.9 BP 126/72 Blood Pressure Location Lt brachial Position Sitting Intake Visit Reasons: AWV Intake Note: Patient here for an annual wellness visit. 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: No Accompanied by: Self / Same As Patient Allergies hydrocodone [From VICODIN] Adverse Reaction (Intermediate, Verified 11/22/23 10:22) VOMMITING,DIZZY, NAUSEA tramadol [TRAMADOL] Adverse Reaction (Intermediate, Verified 11/22/23 10:22) NAUSEA & VOMITING oxycodone [From Percocet] Adverse Reaction (Mild, Verified 11/22/23 10:22) Formication Medication List - Last Reconciled 11/22/23 by Brittany Elizabeth MD acetaminophen 1,000 mg (2 x 500 mg) PO Q6H PRN cholecalciferol (vitamin D3) (Vitamin D3) 50 mcg PO DAILY 90 days fluticasone propionate 50 mcg/actuation 1 spray intranasal DAILY ibuprofen 600 mg PO Q6H PRN olopatadine 0.2% (Pataday Once Daily Relief) 1 drp ophthalmic (eye) DAILY PRN 30 days omeprazole 20 mg PO DAILY PRN 90 days polyethylene glycol 3350 (Miralax) 17 grams PO DAILY PRN HPI HPI Comments History of Present Illness Details This is a 68-year-old female that comes for her Medicare wellness exam. Ppp handed to patient. Mammogram done 2022 was normal. Colonoscopy on 2020. I will order a DEXA scan. No chest pain or shortness on breath. No acute complaints. [facility] Medical History (Updated 11/22/23 @ 12:07 by Birttany Elizabeth MD) Hypovitaminosis D Dyslipidemia COVID-19 vaccine series completed Mild recurrent major depression Tachycardia Low TSH level Multinodular goiter Muscle ache Anxiety Surgical History Hx of cataract surgery History of surgery History of hernia repair (07/02/22) History of esophagogastroduodenoscopy (EGD) H/O colonoscopy History of reversal of ileostomy History of ileostomy History of ankle surgery History of tonsillectomy History of appendectomy Family History Father Colon cancer Mother Breast cancer Brother Brain cancer Paternal Uncle Lung cancer Sister Breast cancer Substance use disorder Daughter Mental health disorder Social History Household Members: Friend(s) Housing: House Are you a primary health care recruiter to a significant other at home: No Do you presently have visiting nurse or other home services: No Alcohol intake: former Patient Tobacco Use Status: Former Tobacco user Tobacco use type: Cigarette e-Cigarette/Vaping Use: Never Used Second Hand Smoke Exposure: No Substance Use Type: Marijuana service: No Current occupational status: employed Current occupational exposures/hazards: No Cognitive needs: No Hearing needs: No Vision needs: No Questionnaire Medicare Wellness Checkup What [age] What gender do you identify with?: female During the past 4 weeks, how much have you been bothered by emotional problems such as feeling anxious, depressed, irritable, sad or downhearted, and blue?: slightly During the past 4 weeks, has your physical & emotional health limited your social activities with family, friends, neighbors, or groups?: not at all During the past 4 weeks, how much bodily pain have you generally had?: mild pain During the past 4 weeks, was someone available to help you if you needed & wanted help?: yes, as much as I wanted During the past 4 weeks, what was the hardest physical activity you could do for at least 2 minutes?: moderate Can you get to places out of walking distance without help? (For eg., can you travel alone on buses, taxis or drive your car?): Yes Can you go shopping for groceries or clothes without someone's help?: Yes Can you prepare your own meals?: Yes Can you do your housework without help?: Yes Because of any health problems, do you need the help of another person with your personal care needs such as eating, bathing, dressing or getting around the house?: Yes Can you handle your own money without help?: Yes During the past 4 weeks, how would you rate your health in general?: very good During the past 4 weeks how have things been going for you?: pretty well Are you having difficulties driving your car?: not applicable, I don't use a car Do you always fasten your seat belt when you are in a car?: yes, usually During past 4 weeks, have you been bothered by the following: never: Falling or dizzy when standing up, Sexual problems?, Trouble eating well?, Teeth or denture problems?, Problems using the telephone? and Tiredness or fatigue? Have you fallen 2 or more times in the past year?: No Are you afraid of falling?: No Are you a smoker?: no During the past 4 weeks, how many drinks of wine, beer, or other alcoholic beverages did you have?: 1 drink or less per week Do you exercise for about 20 minutes 3 or more times a week?: yes, most of the time Have you been given information to help with the following?: no: Hazards in your house that might hurt you? and no: Keeping track of your medications? How often do you have trouble taking medicines the way you have been told to take them?: I always take medicine as prescribed How confident are you that you can control & manage most of your health problems?: very confident What is your race?: White Mini Mental State Exam (MMSE) Orientation What is the (year) (season) (date) (day) (month)?: year, season, date, day and month Where are we (state) (county) (town or city) (hospital) (floor)?: state, county, town or city, hospital/clinic and floor Registration Name of 3 unrelated objects clearly and slowly, then ask patient to repeat all 3 of them. (1st repeat determines score. Make sure they can repeat all three): object 1, object 2 and object 3 Attention & Calculation (CHOOSE ONE) Spell WORLD backwards (DLROW): 4 letters Recall Ask patient to repeat the 3 items from question #3.: object 1, object 2 and object 3 Language Show patient a wristwatch & ask what it is. Repeat for pencil.: watch Ask the patient to repeat the phrase 'No ifs, ands, or buts' after you.: correct Ask the patient to 'take a piece of paper with their right hand' 'fold paper in half' 'place paper on floor': take paper in right hand, fold paper in half and place paper on floor Print the sentence 'CLOSE YOUR EYES' on a piece. If patient actually closes eyes then score.: followed written direction Give patient a blank piece of paper & ask to write a sentence. Score if it contains a noun & verb.: sentence contains subject and verb Ask patient to copy figure of intersecting pentagons exactly. Score if all 10 angles & 2 intersects are included.: all 10 angles present & 2 are intersected Score Score: 28 Activity of Daily Living Bathing - sponge bath, tub bath or shower: receives no assistance (gets in/out by self, if usual bathing means Dressing - getting clothes from closets & drawers, including inner/outer garments & fasteners.: gets clothes & gets completely dressed without help Toileting - going to the 'toilet room' for urine/bowel elimination & cleaning self/arranging clothes: goes to toilet room, cleans self, arranges clothes without help Transfer: moves in & out of bed and chair without help (may use support object) Continence: controls urination/bowel movements completely by self Feeding: feeds self without help Total Score: 0 Information obtained from: patient Using telephone: independent Traveling: independent Shopping: independent Preparing meals: independent Housework: independent Taking medicine: independent Managing money: independent PHQ-9 Over the last 2 weeks, how often have you been bothered by any of the following problems? 1. Little interest or pleasure in doing things: not at all 2. Feeling down, depressed, or hopeless: not at all 3. Trouble falling or staying asleep, or sleeping too much: several days 4. Feeling tired or having little energy: several days 5. Poor appetite or overeating: not at all 6. Feeling bad about yourself - or that you are a failure or have let yourself or your family down: not at all 7. Trouble concentrating on things, such as reading the newspaper or watching television: not at all 8. Moving or speaking so slowly that other people could have noticed. Or the opposite - being so fidgety or restless that you have been moving around a lot more than usual: not at all 9. Thoughts that you would be better off or of hurting yourself in some way: not at all Total score: 2 Depression Screening Interpretation: Negative Depression Screening Done: Yes 62051 - PHQ-9 Billing: Yes Source: Developed by Drs. Manuel Hodges, Kimberly Chuy Andino and colleagues, with an educational aram from [employer]. AUDIT C Alcohol Use Questionnaire (AUDIT-C) 1. How often do you have a drink containing alcohol?: Never Total Score: 0 Score Reviewed/Action Taken: No Thrive Questionnaire Date Thrive assessed: 11/22/23 I am a: Patient What is your living situation today?: I have a steady place to live Within the past 12 months, did the food you bought not last and you didn't have the money to get more?: Never true Within the past 12 months, did you worry whether your food would run out before you got money to buy more?: Never true Do you have trouble paying for medicines?: No Do you have trouble getting transportation to medical appointments?: No Do you have trouble paying your heating and electricity bill?: No Do you have trouble taking care of your child, family member or friend?: No Do you have trouble with day-to-day activities such as bathing, preparing meals, shopping, managing finances, etc.?: No Are you currently unemployed and looking for a job?: No Are you interested in more education?: No Please select the resources that you would like help with: None Currently or been in a relationship where the following occur: No concerns reported THRIVE Score: 0 Fall Risk Assessment Fall Risk Assessment Fall risk assessment: No Falls in past year BOSTON-7 AMB Questionnaire BOSTON-7 Date BOSTON - 7 assessed: 11/22/23 Feeling nervous, anxious, or on edge: 0 = Not at all Not being able to stop or control worryin = Not at all Worrying too much about different things: 0 = Not at all Trouble relaxin = Not at all Being so restless that it is hard to sit still: 0 = Not at all Becoming easily annoyed or irritable: 0 = Not at all Feeling afraid as if something awful might happen: 0 = Not at all Total BOSTON-7 score (0-4 normal; 5-9 mild; 10-14 moderate; 15-21 severe): 0 Source: Developed by Drs. Manuel Hodges, Chuy Alberto and colleagues, with an educational aram from [employer]. BOSTON-7 Assessment Billing BOSTON-7 Assessment Tool: BOSTON-7 Assessment 17009 Review of Systems Const All systems reviewed & are unremarkable except as noted in HPI and below Card Denies chest pain at rest, Denies chest pain with activity, Denies edema, Denies irregular heart rhythm, Denies claudication, Denies dyspnea, Denies dyspnea on exertion, Denies orthopnea, Denies paroxysmal nocturnal dyspnea and Denies slow heart rate Resp Denies cough, Denies dyspnea and Denies dyspnea on exertion GI Denies abdominal pain, Denies change in bowel habits, Denies excessive flatus, Denies nausea and Denies vomiting Denies urinary incontinence, Denies urinary hesitancy and Denies urinary urgency Neuro Denies confusion Psych Denies confusion Physical Exam Vital Signs: Last Vital Signs BP 126/72 11/22/23 10:08 BMI result Body Mass Index 24.9 Const General: No confusion Orientation/consciousness: patient oriented x3 and No confusion Resp Effort & Inspection: normal respiratory effort Auscultation: clear to auscultation bilaterally Cardio Jugular venous distension: no JVD Rate: regular rate Rhythm: regular rhythm Heart sounds: S1 normal heart sound present and S2 normal heart sound present Neuro General: patient oriented x3, no focal motor deficits and No confusion Romberg Test: Negative Extrem General: Yes full ROM Immunizations pneumoc 20-casandra conj-dip cr(PF) 0.5 mL IM syringe Performing Provider: Brittany Elizabeth MD Performing Location: [facility] Administered by: KACIE Wooten on 11/22/23 10:47 Dose Route Admin Location Dispensed Lot Number Expiration Date NDC Reliability Specialist 0.5 mL IM Right Deltoid 0.5 mL [id number] 08/27/24 [employer] VIS Given Date VIS Provided VIS Publication Date 11/22/23 Single Vaccine 21 Eligibility Eligibility Date Funding Source Not [facility] Eligible 11/22/23 Private Assessment & Plan Assessment & Plan (1) Encounter for Medicare annual wellness exam: Code(s): Z00.00 - Encounter for general adult medical examination without abnormal findings Plan: Repeat in a year. Orders: Orders XR DEXA axial skeleton Today N95.9 - Unspecified menopausal and perimenopausal disorder Thyroid Stimulating Hormone Today R79.89 - Other specified abnormal findings of blood chemistry Pneumococcal 20 Immunization Today Z23 - Encounter for immunization Complete Blood Count Auto Diff Today R79.89 - Other specified abnormal findings of blood chemistry Lipid Panel Today E78.5 - Hyperlipidemia, unspecified Vitamin D 25-OH Total Today E55.9 - Vitamin D deficiency, unspecified Comprehensive [place]. Panel Fast Today E78.5 - Hyperlipidemia, unspecified Free T4 (Free Thyroxine) Today R79.89 - Other specified abnormal findings of blood chemistry Quality Reporting (2019) Fall Risk Screening ([facility] 139) Fall risk assessment: No Falls in past year Depression/Bipolar (159/160/161/177) PHQ-9: Total score: 2 Coding Level of Care Code Medicare First (G0438) Diagnoses Encounter for Medicare annual wellness exam Z00.00 Additional Codes BOSTON-7 Assessment Billing - BOSTON-7 Assessment Tool: BOSTON-7 Assessment 20816 ([id number]) Time Spent (min) 31
== END 2023-11-22 10:49 | disposition home or self-care (01) ==
PROVIDERS: PCP Internal Medicine; Visit Provider Internal Medicine
DX: Z00.00 Encounter for general adult medical examination without abnormal findings (principal); Z23 Encounter for immunization
CPT/HCPCS: 90471; 90677; G0438

== ENCOUNTER 2023-11-22 10:58 | Outpatient (REF) | payer MEDICARE, MEDICAID, SELFPAY ==
[2023-11-22 13:06] LABS: MANUAL DIFF FLAG NO
[2023-11-22 13:18] LABS: Basophils Percent Auto 0.5 % (0-2); Eosinophils Absolute Auto 0.4 X10*3/uL (0.0-0.4); Hematocrit 36.8 % (37.0-47.0); Hemoglobin 12.4 g/dl (12.0-16.0); Imm Gran Abs Auto 0.01 X10*3/uL (0.00-0.03); Imm Gran Pct Auto 0.2 % (0.0-0.4); Lymphocytes Absolute Auto 2.2 X10*3/uL (1.2-4.9); Mean Corpuscular HGB Conc 33.7 g/dl (31.0-35.0); Mean Corpuscular Hemoglobin 30.4 pg (27.0-33.0); Mean Corpuscular Volume 90.2 fL (80.0-98.0); Mean Platelet Volume 9.3 fL (9.4-12.3); Monocytes Absolute Auto 0.4 X10*3/uL (0.1-1.2); Monocytes Percent Auto 6.2 % (2-11); Neutrophils Absolute Auto 3.2 x10*3/uL (2.0-8.3); Neutrophils Percent Auto 52.1 % (45-73); Platelet Count 401 X10*3/uL (160-400); Red Blood Count 4.08 X10*6/uL (4.20-5.50); Red Cell Distribution Width 13.2 % (11.0-16.0); White Blood Count 6.1 X10*3/uL (4.8-10.8)
[2023-11-22 13:36] LABS: Alanine Aminotransferase 22 U/L (0-31); Albumin Level 4.4 g/dL (3.5-5.0); Alkaline Phosphatase 81 U/L (39-117); Anion Gap 12 (12-20); Aspartate Amino Transferase 23 U/L (5-31); Bilirubin Total 0.4 mg/dL (0.0-1.0); Blood Urea Nitrogen 19 mg/dL (9-16); Calcium 9.4 mg/dL (8.4-10.2); Carbon Dioxide 27 mmol/L (22-29); Chloride 106 mmol/L (96-108); Cholesterol 213 mg/dL (<200); Estimated Glomerular Filt Rate > 60; Glucose Fasting 106 mg/dL (60-99); HDL Cholesterol 70 mg/dL (>40); LDL Cholesterol Calculated 127 mg/dL (<100); Potassium 4.1 mmol/L (3.3-5.1); Sodium 141 mmol/L (135-145); Total Protein 6.9 g/dL (6.5-8.0); Triglycerides 82 mg/dL (<150)
[2023-11-22 13:57] LABS: Free T4 (Free Thyroxine) 0.84 ng/dL (0.71-1.85); Thyroid Stimulating Hormone 0.63 uIU/mL (0.32-4.0); Vitamin D 25-OH Total 81.4 ng/mL (>30)
== END 2023-11-22 10:59 | disposition home or self-care (01) ==
LOC: HO.10HDL 10:58
PROVIDERS: Visit Provider Internal Medicine
DX: R79.89 Other specified abnormal findings of blood chemistry (principal); E78.5 Hyperlipidemia, unspecified; E55.9 Vitamin D deficiency, unspecified
CPT/HCPCS: 36415; 80053; 80061; 82306; 84439; 84443; 85025

== ENCOUNTER 2023-12-09 09:51 | Outpatient (AMB) | payer MEDICARE, MEDICAID, SELFPAY ==
[2023-12-09 09:57] VITALS: BP 110/74; PULSE 75; BMI 25.6
--- NOTE | 2023-12-09 09:57 | A.OFFVIS_ITS ---
Vital Signs 3 12/09/23 09:57 Height 5 ft 2 in Weight 139 lb 12.369 oz BMI 25.6 BP 110/74 Blood Pressure Location Lt brachial Position Sitting Pulse 75 Pulse Source Pulse Oximeter Intake Visit Reasons: Nontoxic multinodular goiter-conf Intake Note: Patient present today for Nontoxic multinodular goiter follow up visit. 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 She was previously seeing Dr. Tong, last visit August 2023. HPI from prior visit Diagnosed 2017 She underwent a fine-needle aspiration of left lower pole nodule on 04/14/2018 with benign cytology . She also has a right dominant thyroid nodule status post FNA August 2021 at [facility] with benign cytology. Most recent ultrasound from July 2023 again showed bilateral thyroid nodules with increase in the size of the right lower lobe nodule by a significant amount now measuring 1.9 cm as well as increase in the size of the left lower lobe nodule now measuring 2.4 cm by a significant event. Patient currently denies heat or cold intolerance, diarrhea or constipation, hair loss, palpitation, anxiety, , mood changes, low energy, changes in appearance of eyes or vision changes, tremors, increased diaphoresis or dry skin. ?Weight has gone up by 3 lbs in the last month. Patient denies any difficulty swallowing, pain on swallowing or voice changes or difficulty breathing. Does need two pillows to sleep because feels suffocation when she lays down flat. Patient denies any history of childhood neck radiation. Denies having ever used lithium, amiodarone or biotin supplements. Patient denies any family history of thyroid cancer or thyroid disease. Family history Father: colon cancer Mother: breast cancer Brother: brain cancer dies at age 15 Review of systems Constitutional: no fevers, chills or weight loss HEENT: no changes in vision Cardiac: No chest pain, discomfort or palpitations. Pulmonary: No SOB GI:No abdominal pain, no nausea or vomiting, no anorexia, no blood in stool : no burning micturition, dysuria or increase in urinary frequency Physical exam General: sitting comfortably in no acute distress HEENT: normocephalic/atraumatic, moist oral mucosa Neck: supple, palpable bilateral 1-2 cm nodules Cardiac: normal heart sounds Pulm: normal breath sounds B/L, no added breath sounds Abd: not distended, no tenderness Extremities: no edema, no signs of myxedema Neuro: AAO x3, Speech: normal, no facial droop, moving all 4 extremities [facility] Medical History Hypovitaminosis D Dyslipidemia COVID-19 vaccine series completed Mild recurrent major depression Tachycardia Low TSH level Multinodular goiter Muscle ache Anxiety Surgical History Hx of cataract surgery History of surgery History of hernia repair (07/02/22) History of esophagogastroduodenoscopy (EGD) H/O colonoscopy History of reversal of ileostomy History of ileostomy History of ankle surgery History of tonsillectomy History of appendectomy Family History Father Colon cancer Mother Breast cancer Brother Brain cancer Paternal Uncle Lung cancer Sister Breast cancer Substance use disorder Daughter Mental health disorder Social History Household Members: Friend(s) Housing: House Are you a primary early breastfeeding care specialist to a significant other at home: No Do you presently have visiting nurse or other home services: No Alcohol intake: former Patient Tobacco Use Status: Former Tobacco user Tobacco use type: Cigarette e-Cigarette/Vaping Use: Never Used Second Hand Smoke Exposure: No Substance Use Type: Marijuana service: No Current occupational status: employed Current occupational exposures/hazards: No Cognitive needs: No Hearing needs: No Vision needs: No Physical Exam Vital Signs: Last Vital Signs Pulse 75 12/09/23 09:57 BP 110/74 12/09/23 09:57 BMI result Body Mass Index 25.6 Results Reviewed Results Reviewed: Laboratory Tests 11/22/23 11:05 TSH 0.63 Free T4 0.84 US THYROID 07/2023 I reviewed the images myself which showed the multiple bilateral nodules with increase in size of the right dominant 1.9 cm lower lobe nodule which has some calcifications in it. Also noted the left lower lobe dominant 2.4 cm nodule which is solid, isoechoic. CLINICAL INFORMATION: Nontoxic multinodular goiter. COMPARISON: Thyroid ultrasound 07/29/2022 and 10/14/2020. Ultrasound-guided thyroid biopsy 04/14/2018. TECHNIQUE: Linear transducer grayscale and color Doppler examination with attention to the region of the thyroid. FINDINGS: SIZE: Measurements of the thyroid lobes and nodules are given in sagittal, anteroposterior and transverse dimensions respectively. Right Thyroid Lobe: 6.4 x 2.7 x 2.7 cm, volume 23.8 mL. Previously 6.5 x 2.6 x 2.4 cm, volume 21.8 mL. Parenchyma: The gland echotexture is homogeneous. Thyroid vascularity is increased. Left Thyroid Lobe: 5.8 x 2.6 x 2.4 cm, volume 18.8 mL. Previously 6.7 x 2.6 x 2.6 cm, volume 23.8 mL. Parenchyma: The gland echotexture is homogeneous. Thyroid vascularity is increased. Isthmus: 0.6 cm in maximum AP dimension. Previously 0.5 cm. Estimated total number of nodules greater than or equal to 1 cm: 4. [employer] Studies Professor nodules are described as follows: 1. Location: Left mid pole. Size: 1.6 x 0.9 x 1.3 cm, volume 0.9 mL. Previously: 1.5 x 1.0 x 1.1 cm, volume 0.9 mL. Nodule characteristics: Composition: Mixed cystic and solid (1). Echogenicity: Isoechoic (1). Shape: Not taller than wide (0). Margins: Smooth (0). Echogenic Foci: None (0). ACR TI-RADS total points: 2 ACR TI-RADS category: 2 Significant change in size (>/= 20% in 2 dimensions and minimal increase of 2 mm or 50% or greater increase in volume): No Change in features: Not with accounting for differences in interobserver variability, as imaging findings appear similar to prior. 2. Location: Left lower pole. Size: 2.4 x 2.4 x 2.3 cm, volume 6.7 mL. Previously: 1.9 x 1.7 x 1.7 cm, volume 2.9 mL. Nodule characteristics: Composition: Solid/almost completely solid (2). Echogenicity: Isoechoic (1). Shape: Not taller than wide (0). Margins: Ill-defined (0). Echogenic Foci: None (0). ACR TI-RADS total points: 3 ACR TI-RADS category: 3 Significant change in size (>/= 20% in 2 dimensions and minimal increase of 2 mm or 50% or greater increase in volume): Yes Change in features: Not with accounting for differences in interobserver variability, as imaging findings appear similar to prior. 3. Location: Right mid pole. Size: 0.6 x 0.5 x 0.6 cm, volume 0.09 mL. Previously: Not measured. Nodule characteristics: Composition: Solid/almost completely solid (2). Echogenicity: Isoechoic (1). Shape: Not taller than wide (0). Margins: Ill-defined (0). Echogenic Foci: None (0). ACR TI-RADS total points: 3 ACR TI-RADS category: 3 4. Location: Right lower pole. Size: 1.9 x 1.5 x 1.6 cm, volume 2.4 mL. Previously: 1.6 x 1.5 x 1.3 cm, volume 1.6 mL. Nodule characteristics: Composition: Solid/almost completely solid (2). Echogenicity: Isoechoic (1). Shape: Not taller than wide (0). Margins: Ill-defined (0). Echogenic Foci: Macrocalcifications (1). ACR TI-RADS total points: 4 ACR TI-RADS category: 4 Significant change in size (>/= 20% in 2 dimensions and minimal increase of 2 mm or 50% or greater increase in volume): Yes Change in features: No 5. Location: Right mid pole. Size: 1.0 x 0.7 x 1.0 cm, volume 0.4 mL. Previously: 1.0 x 0.6 x 0.6 cm, volume 0.2 mL. Nodule characteristics: Composition: Spongiform (0). ACR TI-RADS total points: 0 ACR TI-RADS category: 1 Significant change in size (>/= 20% in 2 dimensions and minimal increase of 2 mm or 50% or greater increase in volume): Yes Change in features: No NODES: No lymphadenopathy is seen in the tissue surrounding the thyroid gland. US/US thyroid IMPRESSION: A 1.9 cm TR 4 right thyroid nodule is increased in size. This meets criteria for tissue sampling if not already obtained. A 2.4 cm TR 3 left thyroid nodule is increased in size from prior recommend one-year follow-up thyroid ultrasound. Additional thyroid nodules as detailed above which do not meet criteria for follow-up. Hypervascular thyroid, seen in the setting of thyroiditis. Assessment & Plan Assessment & Plan (1) Multinodular goiter: Code(s): E04.2 - Nontoxic multinodular goiter Category: Medical Plan: Patient with no family history of thyroid cancer, with no personal history of head or neck radiation who is coming today for follow up of multinodular goiter diagnosed in 2018. She underwent biopsy in March 2018 of the left lower lobe dominant nodule which was benign, and subsequently had another biopsy at [facility] of the right lower lobe dominant nodule which was also benign. She does not have any compressive symptoms. TFTs from October 2023 are unremarkable. On her most recent ultrasound from July 2023 she had significant increase in size of both the right lower lobe dominant nodule which now measures 1.9 cm, solid, isoechoic, but has microcalcifications with TR 4 category, as well as increase in size of the left lower lobe 2 point 4 cm nodule which is solid, isoechoic, TR 3 category. Given significant change in size, both of these nodules meet criteria for biopsy, however patient mentioned she has quite a low pain threshold and for now given that the left lower lobe nodule is TR 3 category, and not greater than 2.5 cm per TI-RADS we can hold off on the biopsy of this nodule, though per YAIMA guidelines this would classify as a low suspicion nodule with a 5-10% chance of malignancy which should be biopsied when they are greater than 1.5 cm. For now we recommend repeat biopsy of the right lower lobe dominant nodule measuring 1.9 cm, TR 4 category. I explained that it is common to have thyroid nodules. About 95% of the time these nodules are benign. However if the nodule is > 1 cm in size or suspicious on ultrasound then a fine need aspiration biopsy is recommended. We discussed that a FNAB involves 4-5 passes with a small gauge needle and material obtained is sent off for cytology.If the cytopathology is benign then the nodule will be followed annually with repeat ultrasounds. However if it is suspicious or malignant, we will need to discuss further management. Indeterminate cytology can be further investigated with repeat FNA, genetic testing or empiric lobectomy. Malignant cytology is managed with either lobectomy or total thyroidectomy. We discussed briefly that thyroid cancer is, in most patients, an indolent disease that does not affect mortality. We will arrange for FNA at next available opening of the right lower lobe 1.9 cm nodule and patient will follow up with me in clinic thereafter for results and further decision making. Plan: -scheduled for FNA of the right lower lobe 1.9 cm nodule in follow up in 1-2 weeks after procedure to discuss results Plan I spent 30 minutes in reviewing the record, seeing the patient and documenting in the medical record. Orders: Orders 2 US biopsy thyroid Today E04.2 - Nontoxic multinodular goiter Patient Instructions: We will schedule you for a biopsy of your right lower lobe nodule and a follow up 1-2 weeks after the biopsy Coding Level of Care Code Est Pt Level 4 (93428) Diagnoses Multinodular goiter E04.2 Time Spent (min) 30
== END 2023-12-09 10:33 | disposition home or self-care (01) ==
PROVIDERS: PCP Internal Medicine; Visit Provider Student in an Organized Health Care Education/Training Program
DX: E04.2 Nontoxic multinodular goiter (principal)
CPT/HCPCS: 99214

== ENCOUNTER → 2023-12-09 09:51 | Outpatient (BNVA) | payer MEDICARE, MEDICAID, SELFPAY | PROVIDERS: PCP Internal Medicine; Visit Provider Student in an Organized Health Care Education/Training Program | DX: E04.2 Nontoxic multinodular goiter (principal) | CPT/HCPCS: 99212 ==

== ENCOUNTER 2023-12-23 13:02 | Outpatient (REF) | payer MEDICARE, MEDICAID, SELFPAY ==
--- NOTE | ~2023-12-23 | MM_ITS ---
EXAMINATION: BONE DENSITOMETRY CLINICAL INDICATION: Menopause. COMPARISON: This is the patient's baseline examination. TECHNIQUE: Using a Nimbus Discovery DXA System (software version: 13.1) manufactured by [email or web address], dual-energy x-ray absorptiometry was performed of the lumbar spine and left hip. The images are of good technical quality. Summary results are attached. FINDINGS: LEFT FEMUR, NECK: BMD 0.782 g/cm2, Z-score -0.2, T-score -1.8, osteopenia. LEFT FEMUR, TOTAL: BMD 0.832 g/cm2, Z-score 0.1, T-score -1.4, osteopenia. AP SPINE L1-L2 (excluding L3 and L4): The data of L1-L4 has been changed to exclude the L3 and L4 vertebral bodies, because significant degenerative change at these levels may cause overestimation of lumbar spine density. BMD 1.025 g/cm2, Z-score 0.6, T-score -1.2, osteopenia. IDENTIFIED RISK FACTORS: Menopause. HISTORY OF FRACTURE: None listed. MEDICATIONS: Vitamin D. MM/XR DEXA axial skeleton IMPRESSION: 1. DIAGNOSIS: Osteopenia based on the lowest T-score value of -1.8 in the femoral neck applying World Health Organization criteria. 2. 10-YEAR FRACTURE RISK PREDICTION, FRAX: Major osteoporotic fracture (clinical spine, forearm, hip or shoulder) 11.1%. Hip fracture 1.8%. 3. Treatment Recommendations: NOF guidelines recommend consideration for treatment in postmenopausal women and men age 50 and older presenting with the following: -A hip or vertebral (clinical or morphometric) fracture. -T-score less than or equal to -2.5 at the femoral neck or spine after appropriate evaluation to exclude secondary causes. -Low bone mass at the hip or spine and a 10-year fracture probability by FRAX of greater than or equal to 3% for hip fracture or greater than or equal to 20% for major osteoporotic fracture based on the [place] adapted WHO algorithm. 4. Other Recommendations: All treatment decisions require clinical judgment and consideration of individual patient factors, including patient preferences, comorbidities, previous drug use, risk factors not captured in the FRAX model (e.g. frailty, falls, vitamin D deficiency, increased bone turnover, interval significant decline in bone density) and possible under or overestimation of fracture risk by FRAX. Additional medical evaluation for secondary cause of low bone mineral density may be appropriate. FUTURE SCAN RECOMMENDATION: People with diagnosed cases of osteoporosis or at high risk for fracture should have regular bone mineral density tests. For patients eligible for Medicare, routine testing is allowed once every 2 years. The testing frequency can be increased to one year for patients who have rapidly progressing disease, those who are receiving or discontinuing medical therapy to restore bone mass, or have additional risk factors. Electronically signed by: Edison Hillman MD 01/04/2024 08:59 AM EDT
--- NOTE | ~2023-12-23 | MM_ITS ---
EXAMINATION: MM SCREENING DIGITAL BREAST TOMOSYNTHESIS, BILATERAL CLINICAL INFORMATION: Screening. Asymptomatic. COMPARISON: Mammography: Comparison is made with available priors TECHNIQUE: Digital breast mammography with tomosynthesis is performed in both the craniocaudal and mediolateral oblique views along with computer-aided detection (CAD). FINDINGS: There are scattered areas of fibroglandular density (ACR BI-RADS breast composition Category b). Right: There are no significant masses, abnormal calcifications, or other abnormalities. Left: Asymmetry retroareolar region on CC view anterior depth. No suspicious calcifications or other abnormal findings. MM/MM tomosynthesis screening BI IMPRESSION: Additional imaging is recommended ASSESSMENT: BI-RADS BI-RADS 0 - Incomplete: Needs additional Imaging. RECOMMENDATION: 1. Additional views of the left breast 2. Targeted ultrasound if warranted after review of the additional views. 3. Radiology department staff will contact the patient for additional imaging. Additional Imaging required This examination should not preclude the clinical evaluation of a suspicious palpable abnormality. This patient's information was entered into a reminder system with a target due date for their next mammogram. Electronically signed by: Dotty Aquino DO 01/04/2024 05:51 PM EDT
== END 2023-12-23 13:03 | disposition home or self-care (01) ==
LOC: HO.MAMMO 13:02
PROVIDERS: PCP Internal Medicine; Visit Provider Internal Medicine
DX: Z12.31 Encounter for screening mammogram for malignant neoplasm of breast (principal); Z13.820 Encounter for screening for osteoporosis; Z78.0 Asymptomatic menopausal state
CPT/HCPCS: 77063; 77067; 77080

== ENCOUNTER → 2023-12-23 13:15 | Outpatient (BNV) | payer MEDICARE, MEDICAID, SELFPAY | PROVIDERS: PCP Internal Medicine; Visit Provider Internal Medicine | DX: Z12.31 Encounter for screening mammogram for malignant neoplasm of breast (principal) | CPT/HCPCS: 77063; 77067 ==

== ENCOUNTER 2024-01-12 09:20 | Outpatient (REF) | payer MEDICARE, MEDICAID, SELFPAY ==
--- NOTE | ~2024-01-12 | MM_ITS ---
EXAMINATION: MM DIAGNOSTIC DIGITAL BREAST TOMOSYNTHESIS, LEFT US BREAST LIMITED, LEFT MAMMOGRAPHY: CLINICAL INFORMATION: Evaluate one view asymmetry seen on screening exam 12/23/2023, CC view anterior depth slightly lateral location, localizing to approximately 2:00 on tomography. No clear correlate on the MLO view from screening exam. COMPARISON: Mammography: 12/23/2023 ( BI-RADS 0), 01/18/2023, 12/09/2022, 12/02/2021, 11/27/2020, and exams dating back to 2018. TECHNIQUE: Digital breast tomosynthesis is performed in the following views: Full field 3-D digital left ML view, as well as a 3-D spot compression left CC view. Computer-aided diagnosis was used for this study. FINDINGS: There are scattered areas of fibroglandular density (ACR BI-RADS breast composition Category b). There is a stable and unchanged one view asymmetric density on the CC view, anterior depth slightly lateral location, localizing to approximately 2:00 on the MLO view and tomography. There appears to be a correlate on the MLO view in the slightly superior anterior left breast just above the nipple line. We will evaluate this region with ultrasound. Otherwise, there are benign calcifications scattered throughout the left breast. The parenchymal pattern is unchanged from numerous prior exams. No suspicious calcifications, suspicious masses, or areas of architectural distortion identified. ULTRASOUND: CLINICAL INFORMATION: As above. COMPARISON: Left breast ultrasound 01/18/2023. TECHNIQUE: Targeted sonographic evaluation left breast was performed using a high frequency linear transducer. Attention given to the upper outer quadrant to include the region of mammographic concern. Selected archived documentation. FINDINGS: LEFT BREAST: There is dense fibrocystic tissue localized to this region. No suspicious mass is seen. There is no pathologic acoustic shadowing. There is no gross architectural abnormality. Appearance is unchanged from 01/18/2023. No additional abnormal findings. MM/MM tomosynthesis added views L IMPRESSION: There are no findings in the left breast suspicious for malignancy. There are fibrocystic changes in the 2:00 axis of the left breast, correlating with the mammographic focus of concern. This was previously evaluated 01/18/2023. There has been no change. OVERALL ASSESSMENT: Mammography: BI-RADS 2 - Benign Findings Ultrasound: BI-RADS 2 - Benign Findings RECOMMENDATION: 1 year F/U This patient's information was entered into a reminder system with a target due date for their next mammogram. Electronically signed by: Malvin Duron MD 01/12/2024 12:58 PM EDT
== END 2024-01-12 09:21 | disposition home or self-care (01) ==
LOC: HO.MAMMO 09:20
PROVIDERS: PCP Internal Medicine; Visit Provider Internal Medicine
DX: N64.89 Other specified disorders of breast (principal)
CPT/HCPCS: 76642; 77061; 77065

== ENCOUNTER → 2024-01-12 09:30 | Outpatient (BNV) | payer MEDICARE, MEDICAID, SELFPAY | PROVIDERS: PCP Internal Medicine; Visit Provider Radiology Diagnostic Radiology | DX: R92.1 Mammographic calcification found on diagnostic imaging of breast (principal); N60.22 Fibroadenosis of left breast | CPT/HCPCS: 76642; 77065; G0279 ==

== ENCOUNTER 2024-01-19 09:44 | Outpatient (REF) | payer MEDICARE, MEDICAID, SELFPAY ==
--- NOTE | 2024-01-19 10:29 | PM.PROC ---
Brief Operative Note Date of procedure: 01/19/24 Pre-op diagnosis: right 1.9 cm lower lobe thyroid nodule FNA biopsy Post-op diagnosis: same Procedure: THYROID FINE NEEDLE ASPIRATION PROCEDURE NOTE ? PROCEDURE PERFORMED: Ultrasound-guided FNA of thyroid nodule ? OPERATORS: ? INDICATION: right 1.9 cm lower lobe thyroid nodule; FNA performed to assess for malignancy ? DESCRIPTION OF PROCEDURE: The indications for FNA (to assess for malignancy) were reviewed with the patient in detail. Potential complications (e.g., bleeding, infection, damage to local structures, absence of clear diagnosis after FNA) were reviewed. Alternatives to FNA including conservative observation or surgery were described. The patient understood and agreed to proceed. This was documented by the signing of the written informed consent form. A time-out was performed to confirm the patient's identity and the site of planned FNA. The nodule of interest was identified using ultrasound (14 MHz linear array probe). The site of FNA was then draped in the usual fashion and carefully cleaned and prepared using alcohol swabs. The skin at the previously-identified site of needle insertion was iced and sprayed with numbing spray. Under ultrasound guidance, __ passes were performed using a 1.5-inch, 25-gauge needle, and sample was obtained via capillary action. The needle tip was clearly visualized to be within the nodule at the time of sampling for 4__ of 4__ passes The patient tolerated the procedure well. There were no immediate complications. A small adhesive bandage was applied, and the patient was advised to take acetaminophen (rather than NSAIDs) for any discomfort and to report any signs of inflammation/infection or marked swelling. IMPRESSION: Technically successful ultrasound-guided fine needle aspiration of right 1.9 cm lower lobe thyroid nodule. PLAN: The patient was advised that I will provide follow-up regarding the cytology result and any subsequent plans. Ivy Morel MD Endocrinology Attending Condition: stable Disposition: same day
== END 2024-01-19 09:45 | disposition home or self-care (01) ==
LOC: HO.US 09:44
PROVIDERS: PCP Internal Medicine; Visit Provider Student in an Organized Health Care Education/Training Program
DX: E04.2 Nontoxic multinodular goiter (principal)
CPT/HCPCS: 10005; 88173; 88305

== ENCOUNTER → 2024-01-19 09:44 | Outpatient (BNV) | payer MEDICARE, MEDICAID, SELFPAY | PROVIDERS: PCP Internal Medicine; Visit Provider Student in an Organized Health Care Education/Training Program | DX: E04.2 Nontoxic multinodular goiter (principal) | CPT/HCPCS: 10005 ==

== ENCOUNTER 2024-01-26 12:44 | Outpatient (AMB) | payer MEDICARE, MEDICAID, SELFPAY ==
[2024-01-26 12:47] VITALS: BP 150/82; PULSE 72; BMI 25.4
--- NOTE | 2024-01-26 12:47 | A.OFFVIS_ITS ---
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 HPI from prior visit Diagnosed 2017 She underwent a fine-needle aspiration of left lower pole nodule on 04/14/2018 with benign cytology . She also has a right dominant thyroid nodule status post FNA August 2021 at [facility] with benign cytology. Most recent ultrasound from July 2023 again showed bilateral thyroid nodules with increase in the size of the right lower lobe nodule by a significant amount now measuring 1.9 cm as well as increase in the size of the left lower lobe nodule now measuring 2.4 cm by a significant event. She underwent FNA of the right lower 1.9 cm nodule on 01/19/2024 and is here to discuss results today. Cytology came back nondiagnostic [place] category 1, these have a 5-10% chance of malignancy. Patient currently denies heat or cold intolerance, diarrhea or constipation, hair loss, palpitation, anxiety, , mood changes, low energy, changes in appearance of eyes or vision changes, tremors, increased diaphoresis or dry skin. ?Weight hstable.. Patient denies any difficulty swallowing, pain on swallowing or voice changes or difficulty breathing. Does need two pillows to sleep because feels suffocation when she lays down flat. Patient denies any history of childhood neck radiation. Denies having ever used lithium, amiodarone or biotin supplements. Patient denies any family history of thyroid cancer or thyroid disease. Family history Father: colon cancer Mother: breast cancer Brother: brain cancer dies at age 15 Review of systems Constitutional: no fevers, chills or weight loss HEENT: no changes in vision Cardiac: No chest pain, discomfort or palpitations. Pulmonary: No SOB GI:No abdominal pain, no nausea or vomiting, no anorexia, no blood in stool : no burning micturition, dysuria or increase in urinary frequency Physical exam General: sitting comfortably in no acute distress HEENT: normocephalic/atraumatic, moist oral mucosa Neck: supple, palpable bilateral 1-2 cm nodules Cardiac: normal heart sounds Pulm: normal breath sounds B/L, no added breath sounds Abd: not distended, no tenderness Extremities: no edema, no signs of myxedema Neuro: AAO x3, Speech: normal, no facial droop, moving all 4 extremities Laboratory Tests 11/22/23 11:05 TSH 0.63 Free T4 0.84 Imaging US THYROID 07/2023 I reviewed the images myself which showed the multiple bilateral nodules with increase in size of the right dominant 1.9 cm lower lobe nodule which has some calcifications in it. Also noted the left lower lobe dominant 2.4 cm nodule which is solid, isoechoic. CLINICAL INFORMATION: Nontoxic multinodular goiter. COMPARISON: Thyroid ultrasound 07/29/2022 and 10/14/2020. Ultrasound-guided thyroid biopsy 04/14/2018. TECHNIQUE: Linear transducer grayscale and color Doppler examination with attention to the region of the thyroid. FINDINGS: SIZE: Measurements of the thyroid lobes and nodules are given in sagittal, anteroposterior and transverse dimensions respectively. Right Thyroid Lobe: 6.4 x 2.7 x 2.7 cm, volume 23.8 mL. Previously 6.5 x 2.6 x 2.4 cm, volume 21.8 mL. Parenchyma: The gland echotexture is homogeneous. Thyroid vascularity is increased. Left Thyroid Lobe: 5.8 x 2.6 x 2.4 cm, volume 18.8 mL. Previously 6.7 x 2.6 x 2.6 cm, volume 23.8 mL. Parenchyma: The gland echotexture is homogeneous. Thyroid vascularity is increased. Isthmus: 0.6 cm in maximum AP dimension. Previously 0.5 cm. Estimated total number of nodules greater than or equal to 1 cm: 4. 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 Location: Left mid pole. Size: 1.6 x 0.9 x 1.3 cm, volume 0.9 mL. Previously: 1.5 x 1.0 x 1.1 cm, volume 0.9 mL. Nodule characteristics: Composition: Mixed cystic and solid (1). Echogenicity: Isoechoic (1). Shape: Not taller than wide (0). Margins: Smooth (0). Echogenic Foci: None (0). ACR TI-RADS total points: 2 ACR TI-RADS category: 2 Significant change in size (>/= 20% in 2 dimensions and minimal increase of 2 mm or 50% or greater increase in volume): No Change in features: Not with accounting for differences in interobserver variability, as imaging findings appear similar to prior. 2. Location: Left lower pole. Size: 2.4 x 2.4 x 2.3 cm, volume 6.7 mL. Previously: 1.9 x 1.7 x 1.7 cm, volume 2.9 mL. Nodule characteristics: Composition: Solid/almost completely solid (2). Echogenicity: Isoechoic (1). Shape: Not taller than wide (0). Margins: Ill-defined (0). Echogenic Foci: None (0). ACR TI-RADS total points: 3 ACR TI-RADS category: 3 Significant change in size (>/= 20% in 2 dimensions and minimal increase of 2 mm or 50% or greater increase in volume): Yes Change in features: Not with accounting for differences in interobserver variability, as imaging findings appear similar to prior. 3. Location: Right mid pole. Size: 0.6 x 0.5 x 0.6 cm, volume 0.09 mL. Previously: Not measured. Nodule characteristics: Composition: Solid/almost completely solid (2). Echogenicity: Isoechoic (1). Shape: Not taller than wide (0). Margins: Ill-defined (0). Echogenic Foci: None (0). ACR TI-RADS total points: 3 ACR TI-RADS category: 3 4. Location: Right lower pole. Size: 1.9 x 1.5 x 1.6 cm, volume 2.4 mL. Previously: 1.6 x 1.5 x 1.3 cm, volume 1.6 mL. Nodule characteristics: Composition: Solid/almost completely solid (2). Echogenicity: Isoechoic (1). Shape: Not taller than wide (0). Margins: Ill-defined (0). Echogenic Foci: Macrocalcifications (1). ACR TI-RADS total points: 4 ACR TI-RADS category: 4 Significant change in size (>/= 20% in 2 dimensions and minimal increase of 2 mm or 50% or greater increase in volume): Yes Change in features: No 5. Location: Right mid pole. Size: 1.0 x 0.7 x 1.0 cm, volume 0.4 mL. Previously: 1.0 x 0.6 x 0.6 cm, volume 0.2 mL. Nodule characteristics: Composition: Spongiform (0). ACR TI-RADS total points: 0 ACR TI-RADS category: 1 Significant change in size (>/= 20% in 2 dimensions and minimal increase of 2 mm or 50% or greater increase in volume): Yes Change in features: No NODES: No lymphadenopathy is seen in the tissue surrounding the thyroid gland. US/US thyroid IMPRESSION: A 1.9 cm TR 4 right thyroid nodule is increased in size. This meets criteria for tissue sampling if not already obtained. A 2.4 cm TR 3 left thyroid nodule is increased in size from prior recommend one-year follow-up thyroid ultrasound. Additional thyroid nodules as detailed above which do not meet criteria for follow-up. Hypervascular thyroid, seen in the setting of thyroiditis. Cytology [facility] Medical History Hypovitaminosis D Dyslipidemia COVID-19 vaccine series completed Mild recurrent major depression Tachycardia Low TSH level Multinodular goiter Muscle ache Anxiety Surgical History Hx of cataract surgery History of surgery History of hernia repair (07/02/22) History of esophagogastroduodenoscopy (EGD) H/O colonoscopy History of reversal of ileostomy History of ileostomy History of ankle surgery History of tonsillectomy History of appendectomy Family History Father Colon cancer Mother Breast cancer Brother Brain cancer Paternal Uncle Lung cancer Sister Breast cancer Substance use disorder Daughter Mental health disorder Social History Household Members: Friend(s) Housing: House Are you a primary care coordination manager to a significant other at home: No Do you presently have visiting nurse or other home services: No Alcohol intake: former Patient Tobacco Use Status: Former Tobacco user Tobacco use type: Cigarette e-Cigarette/Vaping Use: Never Used Second Hand Smoke Exposure: No Substance Use Type: Marijuana service: No Current occupational status: employed Current occupational exposures/hazards: No Cognitive needs: No Hearing needs: No Vision needs: No Physical Exam Vital Signs: Last Vital Signs Pulse 72 01/26/24 12:47 BP 150/82 H 01/26/24 12:47 BMI result Body Mass Index 25.4 Assessment & Plan Assessment & Plan (1) Multinodular goiter: Code(s): E04.2 - Nontoxic multinodular goiter Category: Medical Plan: Patient with no family history of thyroid cancer, with no personal history of head or neck radiation who is coming today for follow up of multinodular goiter diagnosed in 2018 to discuss results of recent FNA. She underwent biopsy in March 2018 of the left lower lobe dominant nodule which was benign, and subsequently had another biopsy at [facility] of the right lower lobe dominant nodule which was also benign. She does not have any compressive symptoms. TFTs from October 2023 are unremarkable. On her most recent ultrasound from July 2023 she had significant increase in size of both the right lower lobe dominant nodule which now measures 1.9 cm, solid, isoechoic, but has microcalcifications with TR 4 category, as well as increase in size of the left lower lobe 2 point 4 cm nodule which is solid, isoechoic, TR 3 category. Given significant change in size, both of these nodules meet criteria for biopsy, however patient mentioned she has quite a low pain threshold and she elected to have 1 nodule biopsy at a time. She underwent FNA biopsy of the right lower 1.9 cm nodule on 01/19/2024, cytology came back nondiagnostic ([place] category 1). I counseled with the patient that there is a 5-10% chance of malignancy in nondiagnostic samples. I also reassured her that repeating the biopsy yields a diagnostic results 60-80% of the time. We will plan to repeat biopsy of this nodule in 3 months. I also discussed with her need for FNA for the left lower lobe 2.4 cm nodule. At this time she has a lot going on at work with change of jobs possibly and is very stressed and recently also had cataract surgery. She would like to come back in 3 months with biopsies of both nodules at the same time. We will arrange for FNA of the right lower 1.9 cm in the left lower 2.4 cm nodules in end of March 2024 and patient will follow up with me in clinic thereafter for results and further decision making. Plan: -scheduled for FNA of the right lower lobe 1.9 cm nodule in the left lower 2.4 cm nodules in March 2024 and follow up in 1-2 weeks after procedure to discuss results Orders: Orders 2 US biopsy thyroid 04/19/24 E04.2 - Nontoxic multinodular goiter Coding Level of Care Code Est Pt Level 3 (79151) Diagnoses Multinodular goiter E04.2
== END 2024-01-26 13:29 | disposition home or self-care (01) ==
LOC: HO.ENCR 12:45
PROVIDERS: PCP Internal Medicine; Visit Provider Student in an Organized Health Care Education/Training Program
DX: E04.2 Nontoxic multinodular goiter (principal)
CPT/HCPCS: 99213

== ENCOUNTER → 2024-01-26 12:44 | Outpatient (BNVA) | payer MEDICARE, MEDICAID, SELFPAY | PROVIDERS: PCP Internal Medicine; Visit Provider Student in an Organized Health Care Education/Training Program | DX: E04.2 Nontoxic multinodular goiter (principal) | CPT/HCPCS: 99212 ==

== ENCOUNTER 2024-04-19 09:53 | Outpatient (REF) | payer MEDICARE, MEDICAID, SELFPAY ==
--- NOTE | 2024-04-19 10:37 | PM.PROC ---
Brief Operative Note Date of procedure: 04/19/24 Pre-op diagnosis: right lower 1.9 cm and left lower 2.4 cm thyroid nodule FNA biopsy Post-op diagnosis: same Procedure: THYROID FINE NEEDLE ASPIRATION PROCEDURE NOTE ? PROCEDURE PERFORMED: Ultrasound-guided FNA of thyroid nodule ? OPERATORS: Dr. Ivy Morel ? INDICATION: right lower 1.9 cm and left lower 2.4 cm thyroid nodule FNA biopsy ; FNA performed to assess for malignancy ? DESCRIPTION OF PROCEDURE: The indications for FNA (to assess for malignancy) were reviewed with the patient in detail. Potential complications (e.g., bleeding, infection, damage to local structures, absence of clear diagnosis after FNA) were reviewed. Alternatives to FNA including conservative observation or surgery were described. The patient understood and agreed to proceed. This was documented by the signing of the written informed consent form. A time-out was performed to confirm the patient's identity and the site of planned FNA. The nodules of interest was identified using ultrasound (14 MHz linear array probe). The sites of FNA was then draped in the usual fashion and carefully cleaned and prepared using alcohol swabs. The skin at the previously-identified sites of needle insertion was iced and sprayed with numbing spray. For the right lower thyroid nodule Under ultrasound guidance, 5__ passes were performed using a 1.5-inch, 25-gauge needle, and sample was obtained via capillary action. The needle tip was clearly visualized to be within the nodule at the time of sampling for _3_ of _5_ passes For the left lower thyroid nodule Under ultrasound guidance, 4__ passes were performed using a 1.5-inch, 25-gauge needle, and sample was obtained via capillary action. The needle tip was clearly visualized to be within the nodule at the time of sampling for _4_ of _4_ passes The patient tolerated the procedure well. There were no immediate complications. A small adhesive bandage was applied, and the patient was advised to take acetaminophen (rather than NSAIDs) for any discomfort and to report any signs of inflammation/infection or marked swelling. IMPRESSION: Technically successful ultrasound-guided fine needle aspiration of right lower 1.9 cm and left lower 2.4 cm thyroid nodule. PLAN: The patient was advised that I will provide follow-up regarding the cytology result and any subsequent plans. Ivy Morel MD Endocrinology Attending Condition: stable Disposition: same day
== END 2024-04-19 09:54 | disposition home or self-care (01) ==
LOC: HO.US 09:53
PROVIDERS: PCP Internal Medicine; Visit Provider Student in an Organized Health Care Education/Training Program
DX: E04.2 Nontoxic multinodular goiter (principal)
CPT/HCPCS: 10005; 10006; 88173; 88305

== ENCOUNTER → 2024-04-19 09:53 | Outpatient (BNV) | payer MEDICARE, MEDICAID, SELFPAY | PROVIDERS: PCP Internal Medicine; Visit Provider Student in an Organized Health Care Education/Training Program | DX: E04.2 Nontoxic multinodular goiter (principal) | CPT/HCPCS: 10005; 10006 ==

== ENCOUNTER → 2024-05-03 12:42 | Outpatient (BNVA) | payer MEDICARE, MEDICAID, SELFPAY | PROVIDERS: PCP Internal Medicine; Visit Provider Student in an Organized Health Care Education/Training Program | DX: E04.2 Nontoxic multinodular goiter (principal) | CPT/HCPCS: 99212 ==

== ENCOUNTER 2024-07-11 10:43 | Outpatient (REF) | payer MEDICARE, MEDICAID, SELFPAY ==
[2024-07-11 12:01] LABS: Alanine Aminotransferase 35 U/L (0-31); Albumin Level 4.2 g/dL (3.5-5.0); Alkaline Phosphatase 93 U/L (39-117); Anion Gap 9 (12-20); Aspartate Amino Transferase 22 U/L (5-31); Bilirubin Total 0.6 mg/dL (0.0-1.0); Blood Urea Nitrogen 16 mg/dL (9-16); Calcium 9.5 mg/dL (8.4-10.2); Carbon Dioxide 26 mmol/L (22-29); Chloride 110 mmol/L (96-108); Cholesterol 211 mg/dL (<200); Estimated Glomerular Filt Rate > 60; Glucose Fasting 94 mg/dL (60-99); HDL Cholesterol 62 mg/dL (>40); LDL Cholesterol Calculated 136 mg/dL (<100); Potassium 4.2 mmol/L (3.3-5.1); Sodium 141 mmol/L (135-145); Total Protein 6.8 g/dL (6.5-8.0); Triglycerides 66 mg/dL (<150)
[2024-07-11 12:10] LABS: Vitamin D 25-OH Total 64.8 ng/mL (>30)
== END 2024-07-11 10:44 | disposition home or self-care (01) ==
LOC: HO.LAB 10:43
PROVIDERS: PCP Internal Medicine; Visit Provider Internal Medicine
DX: J30.9 Allergic rhinitis, unspecified (principal); E78.5 Hyperlipidemia, unspecified; E55.9 Vitamin D deficiency, unspecified
CPT/HCPCS: 36415; 80053; 80061; 82306

== ENCOUNTER 2024-07-12 15:04 | Outpatient (AMB) | payer MEDICARE, MEDICAID, SELFPAY ==
--- NOTE | 2024-07-12 15:10 | A.OFFVIS_ITS ---
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 Accompanied by: Self / Same As Patient Allergies hydrocodone [From VICODIN] Adverse Reaction (Intermediate, Verified 07/12/24 15:28) VOMMITING,DIZZY, NAUSEA tramadol [TRAMADOL] Adverse Reaction (Intermediate, Verified 07/12/24 15:28) NAUSEA & VOMITING oxycodone [From Percocet] Adverse Reaction (Mild, Verified 07/12/24 15:28) Formication Medication List - Last Reconciled 07/12/24 by Brittany Elizabeth MD acetaminophen 1,000 mg (2 x 500 mg) PO Q6H PRN cholecalciferol (vitamin D3) (Vitamin D3) 50 mcg PO DAILY 90 days fluticasone propionate 50 mcg/actuation 1 spray intranasal DAILY ibuprofen 600 mg PO Q6H PRN olopatadine 0.2% (Pataday Once Daily Relief) 1 drp ophthalmic (eye) DAILY PRN 30 days omeprazole 20 mg PO DAILY PRN 90 days polyethylene glycol 3350 (Miralax) 17 grams PO DAILY PRN HPI HPI Comments History of Present Illness Details The patient is a 69-year-old female presenting with an annual wellness exam. Vaccinations are current, including pneumonia and tetanus, and a mammogram has been conducted without noted issues. A bone density scan in November 2023 reported osteopenia, managed with vitamin D and needing addition of calcium, which she uses with caution due to constipation controlled by MiraLAX. Recent blood work indicated a stable kidney function, normalized blood glucose, and a mild elevation in a liver enzyme at 35, though further specifics were not elaborated. Her 10-year [place] risk score for cardiovascular disease has been calculated at 3.7%, below the threshold for initiating statin therapy. 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 A notable family medical history involves colon cancer, breast cancer, lung cancer, and a brain tumor. Although she has a history of smoking and alcohol use, she has since discontinued these habits. The patient reports discomfort from allergies, primarily managed with [id number] medications. She denies depression as evaluated by PHQ-9. She maintains independent function in daily living activities. PPP handed to patient. [place] of care updated. - Pneumonia vaccine: Up to date - Tetanus vaccine: Received within the l ast 10 years - Mammogram: Completed, no abnormalities reported - Bone Density Test: Performed in 2023, shows osteopenia, next due in 2025 - Mod[place] Heart Score: 3.7% risk of h eart attack in the next 10 years PFSH Medical History Hypovitaminosis D Dyslipidemia COVID-19 vaccine series completed Mild recurrent major depression Tachycardia Low TSH level Multinodular goiter Muscle ache Anxiety Surgical History Hx of cataract surgery History of surgery History of hernia repair (07/02/22) History of esophagogastroduodenoscopy (EGD) H/O colonoscopy History of reversal of ileostomy History of ileostomy History of ankle surgery History of tonsillectomy History of appendectomy Family History Father Colon cancer Mother Breast cancer Brother Brain cancer Paternal Uncle Lung cancer Sister Breast cancer Substance use disorder Daughter Mental health disorder Social History Household Members: Friend(s) Housing: House Are you a primary clinical care manager to a significant other at home: No Do you presently have visiting nurse or other home services: No Alcohol intake: former Patient Tobacco Use Status: Former Tobacco user Tobacco use type: Cigarette e-Cigarette/Vaping Use: Never Used Second Hand Smoke Exposure: No Substance Use Type: Marijuana service: No Current occupational status: employed Current occupational exposures/hazards: No Cognitive needs: No Hearing needs: No Vision needs: No Questionnaire Medicare Wellness Checkup What [age] What gender do you identify with?: female During the past 4 weeks, how much have you been bothered by emotional problems such as feeling anxious, depressed, irritable, sad or downhearted, and blue?: moderately During the past 4 weeks, has your physical & emotional health limited your social activities with family, friends, neighbors, or groups?: not at all During the past 4 weeks, how much bodily pain have you generally had?: moderate pain During the past 4 weeks, was someone available to help you if you needed & wanted help?: yes, as much as I wanted During the past 4 weeks, what was the hardest physical activity you could do for at least 2 minutes?: light Can you get to places out of walking distance without help? (For eg., can you travel alone on buses, taxis or drive your car?): Yes Can you go shopping for groceries or clothes without someone's help?: Yes Can you prepare your own meals?: Yes Can you do your housework without help?: Yes Because of any health problems, do you need the help of another person with your personal care needs such as eating, bathing, dressing or getting around the house?: No Can you handle your own money without help?: Yes During the past 4 weeks, how would you rate your health in general?: good During the past 4 weeks how have things been going for you?: good & bad parts about equal Are you having difficulties driving your car?: no Do you always fasten your seat belt when you are in a car?: yes, usually During past 4 weeks, have you been bothered by the following: never: Falling or dizzy when standing up, Sexual problems?, Trouble eating well?, Teeth or denture problems? and Problems using the telephone? and often: Tiredness or fatigue? Have you fallen 2 or more times in the past year?: No Are you afraid of falling?: No Are you a smoker?: no During the past 4 weeks, how many drinks of wine, beer, or other alcoholic beverages did you have?: 1 drink or less per week Do you exercise for about 20 minutes 3 or more times a week?: yes, some of the time Have you been given information to help with the following?: no: Hazards in your house that might hurt you? and no: Keeping track of your medications? How often do you have trouble taking medicines the way you have been told to take them?: I seldom take medications as prescribed How confident are you that you can control & manage most of your health problems?: very confident What is your race?: White Mini Mental State Exam (MMSE) Orientation What is the (year) (season) (date) (day) (month)?: year, season, date, day and month Where are we (state) (county) (town or city) (hospital) (floor)?: state, county, town or city, hospital/clinic and floor Registration Name of 3 unrelated objects clearly and slowly, then ask patient to repeat all 3 of them. (1st repeat determines score. Make sure they can repeat all three): object 1, object 2 and object 3 Attention & Calculation (CHOOSE ONE) Spell WORLD backwards (DLROW): 5 letters Recall Ask patient to repeat the 3 items from question #3.: object 1, object 2 and object 3 Language Show patient a wristwatch & ask what it is. Repeat for pencil.: watch and pencil Ask the patient to repeat the phrase 'No ifs, ands, or buts' after you.: correct Ask the patient to 'take a piece of paper with their right hand' 'fold paper in half' 'place paper on floor': take paper in right hand, fold paper in half and place paper on floor Print the sentence 'CLOSE YOUR EYES' on a piece. If patient actually closes eyes then score.: followed written direction Give patient a blank piece of paper & ask to write a sentence. Score if it contains a noun & verb.: sentence contains subject and verb Ask patient to copy figure of intersecting pentagons exactly. Score if all 10 angles & 2 intersects are included.: all 10 angles present & 2 are intersected Score Score: 30 Activity of Daily Living Bathing - sponge bath, tub bath or shower: receives no assistance (gets in/out by self, if usual bathing means Dressing - getting clothes from closets & drawers, including inner/outer garments & fasteners.: gets clothes & gets completely dressed without help Toileting - going to the 'toilet room' for urine/bowel elimination & cleaning self/arranging clothes: goes to toilet room, cleans self, arranges clothes without help Transfer: moves in & out of bed and chair without help (may use support object) Continence: controls urination/bowel movements completely by self Feeding: feeds self without help Total Score: 0 Information obtained from: patient Using telephone: independent Traveling: independent Shopping: independent Preparing meals: independent Housework: independent Taking medicine: independent Managing money: independent PHQ-9 Over the last 2 weeks, how often have you been bothered by any of the following problems? 1. Little interest or pleasure in doing things: not at all 2. Feeling down, depressed, or hopeless: not at all 3. Trouble falling or staying asleep, or sleeping too much: several days 4. Feeling tired or having little energy: several days 5. Poor appetite or overeating: not at all 6. Feeling bad about yourself - or that you are a failure or have let yourself or your family down: not at all 7. Trouble concentrating on things, such as reading the newspaper or watching television: not at all 8. Moving or speaking so slowly that other people could have noticed. Or the opposite - being so fidgety or restless that you have been moving around a lot more than usual: not at all 9. Thoughts that you would be better off or of hurting yourself in some way : not at all Total score: 2 Depression Screening Interpretation: Negative Depression Screening Done: Yes 55755 - PHQ-9 Billing: Yes Source: Developed by Drs. Manuel Hodges, Kimberly [employer], Chuy Vivar and colleagues, with an educational aram from [employer]. Fall Risk Assessment Fall Risk Assessment Fall risk assessment: No Falls in past year AUDIT C Alcohol Use Questionnaire (AUDIT-C) 1. How often do you have a drink containing alcohol?: Never Total Score: 0 Score Reviewed/Action Taken: No BOSTON-7 AMB Questionnaire BOSTON-7 Date BOSTON - 7 assessed: 07/12/24 Feeling nervous, anxious, or on edge: 0 = Not at all Not being able to stop or control worryin = Not at all Worrying too much about different things: 0 = Not at all Trouble relaxin = Not at all Being so restless that it is hard to sit still: 0 = Not at all Becoming easily annoyed or irritable: 0 = Not at all Feeling afraid as if something awful might happen: 0 = Not at all Total BOSTON-7 score (0-4 normal; 5-9 mild; 10-14 moderate; 15-21 severe): 0 Source: Developed by Drs. Manuel Hodges, Chuy Alberto and colleagues, with an educational aram from [facility]. BOSTON-7 Assessment Billing BOSTON-7 Assessment Tool: BOSTON-7 Assessment 90868 Thrive Questionnaire Date Thrive assessed: 11/22/23 Review of Systems Const All systems reviewed & are unremarkable except as noted in HPI and below Card Denies chest pain at rest, Denies chest pain with activity, Denies edema, Denies irregular heart rhythm, Denies claudication, Denies dyspnea, Denies dyspnea on exertion, Denies orthopnea, Denies paroxysmal nocturnal dyspnea and Denies slow heart rate Resp Denies cough, Denies dyspnea and Denies dyspnea on exertion GI Denies abdominal pain, Denies change in bowel habits, Denies excessive flatus, Denies nausea and Denies vomiting Physical Exam Vital Signs: Last Vital Signs BP 138/82 07/12/24 15:11 BMI result Body Mass Index 26.2 Resp Effort & Inspection: normal respiratory effort Auscultation: clear to auscultation bilaterally Cardio Jugular venous distension: no JVD Rate: regular rate Rhythm: regular rhythm Heart sounds: S1 normal heart sound present and S2 normal heart sound present Neuro General: no focal motor deficits Extrem General: Yes full ROM Psych Appearance: grossly normal Assessment & Plan Assessment & Plan (1) Encounter for Medicare annual wellness exam: Code(s): Z00.00 - Encounter for general adult medical examination without abnormal fin dings Plan: 3. 7% 10-year Mod[place] risk score, thus not requiring lipid-lowering medication. We will plan for a follow-up in six months unless otherwise needed.: Patient was informed and verbally consented to the use of an ambient scribe for clinic note documentation during this visit. I discussed osteopenia management with the patient, emphasizing the importance of calcium and vitamin D supplementation while addressing her concerns about constipation. The patient was informed that her 3.7% [place] risk score for cardiovascular events does not require statin therapy, but healthy lifestyle modifications should continue. We reviewed the patient's allergy management with Claritin and Biflonase and advised against pseudonephrine-containing medications. The mild elevation in a liver enzyme will be monitored, utilizing regular liver panels if indicated. We scheduled a follow-up in six months unless new concerning symptoms arise. Orders: Orders Thyroid Stimulating Hormone Today E04.2 - Nontoxic multinodular goiter Referrals Open Access Screening Colonoscopy Referral Z12.12 - Encounter for screening for malignant neoplasm of rectum Patient Instructions: - Continue vitamin D and start calcium supplements while managing constipation with MiraLAX. - Use Claritin and Biflonase for allergy symptoms, avoid pseudonephrine- containing products. - Follow a heart-healthy lifestyle to maintain a low cardiovascular risk. - Monitor for any new symptoms and return if any arise. - Plan for a follow-up appointment in six months. Quality Reporting (2019) Fall Risk Screening ([facility] 139) Fall risk assessment: No Falls in past year Depression/Bipolar (159/160/161/177) PHQ-9: Total score: 2 Coding Level of Care Code Medicare Subsequent (G0439) Diagnoses Encounter for Medicare annual wellness exam Z00.00 Additional Codes PHQ-9 - 37282 - PHQ-9 Billing: Yes ([id number]) BOSTON-7 Assessment Billing - BOSTON-7 Assessment Tool: BOSTON-7 Assessment 03326 ([id number]) Time Spent (min) 35 Advance Care Planning Advance Care Planning discussion: Declined forms
[2024-07-12 15:11] VITALS: BP 138/82; BMI 26.2
== END 2024-07-12 15:52 | disposition home or self-care (01) ==
LOC: HO.HMCH 15:05
PROVIDERS: PCP Internal Medicine; Visit Provider Internal Medicine
DX: Z00.00 Encounter for general adult medical examination without abnormal findings (principal)

== ENCOUNTER → 2024-07-12 15:04 | Outpatient (BNVA) | payer MEDICARE, MEDICAID, SELFPAY | PROVIDERS: PCP Internal Medicine; Visit Provider Internal Medicine | DX: Z00.00 Encounter for general adult medical examination without abnormal findings (principal) | CPT/HCPCS: 96127 ==

== ENCOUNTER 2024-12-25 09:59 | Outpatient (REF) | payer MEDICARE, MEDICAID, SELFPAY ==
--- NOTE | ~2024-12-25 | MM_ITS ---
EXAMINATION: MM SCREENING DIGITAL BREAST TOMOSYNTHESIS, BILATERAL CLINICAL INFORMATION: Screening. Asymptomatic. COMPARISON: Mammography: Comparison is made with available priors TECHNIQUE: Digital breast mammography with tomosynthesis is performed in both the craniocaudal and mediolateral oblique views along with computer-aided detection (CAD). FINDINGS: There are scattered areas of fibroglandular density. There are no significant masses, abnormal calcifications, or other abnormalities. MM/MM tomosynthesis screening BI IMPRESSION: No mammographic evidence of malignancy. ASSESSMENT: BI-RADS Category 1: Negative RECOMMENDATION: Routine annual mammography screening. Patient has a strong family history of breast cancer including mother and sister. Breast MRI yearly screening surveillance should be considered for further evaluation. Breast MRI would need to be ordered by the patient's providing clinician. 1 year F/U This examination should not preclude the clinical evaluation of a suspicious palpable abnormality. This patient's information was entered into a reminder system with a target due date for their next mammogram. Electronically signed by: Dotty Aquino DO 12/26/2024 12:49 PM EDT
--- OUTSIDE RECORDS SUMMARY | 2024-12-25 10:57 | XMS_ITS | Patient Health Record ---
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 Role Phone Brittany Lagos Primary Care Provider Eliseo Muller Jr Unavailable [phone] Allergies Allergen (clinical drug ingredient) Drug/Non Drug Allergy documented on EMR Reaction Allergy Type Onset Date Status Vicodin Unknown Drug Allergy Active tramadol Ultram Unknown Drug Allergy Active acetaminophen / oxycodone Percocet Unknown Drug Allergy Active Reason For Referral No Information Medications Medication SIG (Take, Route, Frequency, Duration) Notes Start Date End Date Status Tylenol Arthritis Pain 650 MG 1 tablets as needed Orally prn Active Flonase 50 MCG/DOSE 1 spray in each nost ril Nasally Once a day Active Tums 500 MG 1 tablet Orally Once a day Active Motrin 400 MG 1 tablet with food o r milk as needed Orally prn Active Allergy Med 25 MG 1 capsule as needed Orally QD Active MiraLax - 1 packet mixed with 8 ounces of fluid Orally Once a day/as needed Active Dicyclomine HCl 20 MG 1 tablet Orally 2- 4 times a day 04/07/2018 Active Immunizations Vaccine Route Administration Date Status Comme nts Flu vaccine no Preserv 3 and > Unknown 12/31/2015 Admin istered Influenza Unknown 12/27/2017 Administered Social History Tobacco Use: Social History Observation Description Date Details (start date - stop date) Former Smoker NA - NA Tobacco Use/Smoking Question Answer Notes Patient is a former smoker When did you stop smoking? 2006 How long has it been since you last smoked? > 10 years Alcohol Screen Question Answer Notes Did you have a drink contain ing alcohol in the past year? Yes How often did you have a dri nk containing alcohol in the past year? Monthly or less (1 point) How many drinks did you have on a typical day when you were drinking in the past year? 1 or 2 drinks (0 point) How often did you have 6 or more drinks on one occasion in the past year? Never (0 point) Points 1 Interpretation Negative Problems Problem Type SNOMED Code ICD Code Onset Dates Problem Status W/U Status Risk Notes Problem 578285582 Gastroesophageal reflux disease without esophagitis (K21.9) Active confirmed Problem 296520151 Family history o f colon cancer (Z80.0) Active confirmed Problem 56609661 Constipation, unspecified constipation type (K59.00) Active confirmed Problem 739848739 Irritable bowel syndrome with constipation (K58.1) Active confirmed Problem 4970612 Diverticulitis o f large intestine with perforation without bleeding (K57.20) Active confirmed Plan Of Treatment No Information Insurance Providers Payer Name Payer Address Payer Phone Subscriber Number Group Number Insured Name Patient Relationship to Insured Coverage Start Date Coverage End Date [facility] [address] [address] [place], [place] [id number] SKIP WATSON Self - patient is the insured MEDICAID OF [facility] [address] [place] [address] [id number] SKIP WATSON Self - patient is the insured Medical (General) History Medical History History ICD Code gastroesophageal reflux disease environmental allergies Surgical History Surgery Date(Month/Year) tonsillectomy and adenoidectomy 1968 appendectomy 1973 ankle surgery 2006 perforated bowel surgery 2016
== END 2024-12-25 10:00 | disposition home or self-care (01) ==
LOC: HO.MAMMO 09:59
PROVIDERS: PCP Internal Medicine; Visit Provider Internal Medicine
DX: Z12.31 Encounter for screening mammogram for malignant neoplasm of breast (principal)
CPT/HCPCS: 77063; 77067

== ENCOUNTER → 2024-12-25 10:15 | Outpatient (BNV) | payer MEDICARE, MEDICAID, SELFPAY | PROVIDERS: PCP Internal Medicine; Visit Provider Internal Medicine | DX: Z12.31 Encounter for screening mammogram for malignant neoplasm of breast (principal) | CPT/HCPCS: 77063; 77067 ==

== ENCOUNTER 2025-01-09 11:32 | Outpatient (REF) | payer MEDICARE, MEDICAID, SELFPAY ==
--- OUTSIDE RECORDS SUMMARY | 2025-01-09 14:07 | XMS_ITS | Patient Health Record ---
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 Name Role Phone Brittany Lagos Primary Care Provider Eliseo Muller Jr Unavailable [phone] Allergies Allergen (clinical drug ingredient) Drug/Non Drug [...] Problem Status W/U Status Risk Notes Problem Gastroesophageal reflux disease without esophagitis (696835353) Gastroesophageal reflux disease without esophagitis (K21.9) Active confirmed Problem Family History of Cancer of Colon (Situation) (112972497) Family history of colon cancer (Z80.0) Active confirmed Problem Constipation (82848047) Constipation, unspecified constipation type (K59.00) Active confirmed Problem Irritable bowel syndrome characterized by constipation (063090111) Irritable bowel syndrome with constipation (K58.1) Active confirmed Problem Perforated diverticulum of large intestine (462100289) Diverticulitis of large intestine with perforation without bleeding (K57.20) Active confirmed Plan Of Treatment No Information Insurance Providers Payer Name Payer Address Payer Phone Subscriber Number Group Number Insured Name Patient Relationship to Insured Coverage Start Date Coverage End Date [facility] [address] [address] [place], [place] [id number] SKIP WATSON Self - patient is the insured MEDICAID OF [facility] [address] [place] [address] [id number] SKIP WATSON Self - patient is the insured Medical (General) History Medical History History ICD Code gastroesophageal reflux disease environmental allergies Surgical History Surgery Date(Month/Year) tonsillectomy and adenoidectomy 1968 appendectomy 1973 ankle surgery 2006 perforated bowel surgery 2016
[2025-01-09 14:10] LABS: Thyroid Stimulating Hormone 0.91 uIU/mL (0.32-4.0)
== END 2025-01-09 11:33 | disposition home or self-care (01) ==
LOC: HO.10HDL 11:32
PROVIDERS: Visit Provider Internal Medicine
DX: E04.2 Nontoxic multinodular goiter (principal)
CPT/HCPCS: 36415; 84443

== ENCOUNTER 2025-01-11 10:57 | Outpatient (AMB) | payer MEDICARE, MEDICAID, SELFPAY ==
[2025-01-11 10:58] VITALS: BP 128/86; PULSE 61; RESP 18; TEMP 36.2; O2SAT 98; BMI 26.7
--- NOTE | 2025-01-11 10:58 | MHC.PC.OV ---
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 Accompanied by: Self / Same As Patient Allergies hydrocodone (From VICODIN) Adverse Reaction (Intermediate, Verified 01/11/25 11:10) VOMMITING,DIZZY, NAUSEA tramadol (TRAMADOL) Adverse Reaction (Intermediate, Verified 01/11/25 11:10) NAUSEA & VOMITING oxycodone (From Percocet) Adverse Reaction (Mild, Verified 01/11/25 11:10) Formication Medication List - Last Reconciled 01/11/25 by Brittany Elizabeth MD acetaminophen 1,000 mg (2 x 500 mg) PO Q6H PRN cholecalciferol (vitamin D3) (Vitamin D3) 50 mcg PO DAILY 90 days fluticasone propionate 50 mcg/actuation 1 spray intranasal DAILY ibuprofen 600 mg PO Q6H PRN olopatadine 0.2% (Pataday Once Daily Relief) 1 drp ophthalmic (eye) DAILY PRN 30 days omeprazole 20 mg PO DAILY PRN 90 days polyethylene glycol 3350 (Miralax) 17 grams PO DAILY PRN Tobacco use date assessed: 01/11/25 Fall risk assessment: No Falls in past year Last assessed Fall Risk: 01/11/25 Dental Screening Dental Screen Date: 01/11/25 Did you have a dental visit in the last 12 months?: Yes Did you have a dental problem in the last 6 months where you did not have access to dental care?: No Was dental information given to patient?: Patient has dentist HPI HPI Comments History of Present Illness Details The patient is a 69-year-old female presenting with a follow-up on thyroid function and evaluation of a rash suspected to be shingles. The thyroid function was previously tested and found to be normal, which was reassuring for the patient. The patient reported a rash that appeared almost a week ago, initially worsening on a while at work. The rash was described as bright and localized, with no significant pain reported. The patient suspected it might be shingles, noting a previous occurrence in the groin area. The patient has not received the shingles vaccination, which was acknowledged as a preventative measure for future occurrences. The patient manages constipation with MiraLAX as needed and heartburn with omeprazole, which she takes almost daily. She reported that the omeprazole effectively alleviates symptoms of heartburn. [facility] Medical History (Updated 01/11/25 @ 11:29 by Brittany Elizabeth MD) Hypovitaminosis D Dyslipidemia COVID-19 vaccine series completed Mild recurrent major depression Tachycardia Low TSH level Multinodular goiter Muscle ache Anxiety Surgical History Hx of cataract surgery History of surgery History of hernia repair (07/02/22) History of esophagogastroduodenoscopy (EGD) H/O colonoscopy History of reversal of ileostomy History of ileostomy History of ankle surgery History of tonsillectomy History of appendectomy Family History Father Colon cancer Mother Breast cancer Brother Brain cancer Paternal Uncle Lung cancer Sister Breast cancer Substance use disorder Daughter Mental health disorder Social History Household Members: Friend(s) Housing: House Are you a primary long term care social worker to a significant other at home: No Do you presently have visiting nurse or other home services: No Alcohol intake: former Patient Tobacco Use Status: Former Tobacco user Tobacco use type: Cigarette e-Cigarette/Vaping Use: Never Used Second Hand Smoke Exposure: No Substance Use Type: Marijuana service: No Current occupational status: employed Current occupational exposures/hazards: No Cognitive needs: No Hearing needs: No Vision needs: No Questionnaire Thrive Questionnaire Date Thrive assessed: 11/22/23 BOSTON-7 AMB Questionnaire BOSTON-7 Date BOSTON - 7 assessed: 07/12/24 Source: Developed by Drs. Manuel Hodges, [employer], Chuy Vivar and colleagues, with an educational aram from [employer]. Review of Systems Const All systems reviewed & are unremarkable except as noted in HPI and below Card Denies chest pain at rest, Denies chest pain with activity, Denies edema, Denies irregular heart rhythm, Denies claudication, Denies dyspnea, Denies dyspnea on exertion, Denies orthopnea, Denies paroxysmal nocturnal dyspnea and Denies slow heart rate Resp Denies cough, Denies dyspnea and Denies dyspnea on exertion Physical exam (Primary Care) Vital Signs: Last Vital Signs Temp 97.1 F 01/11/25 10:58 Pulse 61 01/11/25 10:58 Resp 18 01/11/25 10:58 BP 128/86 01/11/25 10:58 Pulse Ox 98 01/11/25 10:58 Oxygen Delivery Method Room Air 01/11/25 10:58 BMI result Body Mass Index 26.7 Tobacco/Smoking Status: Tobacco use Status Tobacco use date assessed 01/11/25 01/11/25 11:05 Patient Tobacco Use Status Former Tobacco user 01/11/25 11:05 Tobacco use type Cigarette 01/11/25 11:05 e-Cigarette/Vaping Use Never Used 01/11/25 11:05 Thrive Assessment: Date of Thrive Assessment Date Thrive assessed 11/22/23 01/11/25 11:05 Resp Effort & Inspection: normal respiratory effort Auscultation: clear to auscultation bilaterally Cardio Jugular venous distension: no JVD Rate: regular rate Rhythm: regular rhythm Heart sounds: S1 normal heart sound present and S2 normal heart sound present Skin Rashes: rashes noted vesicles right chest Extrem General: Yes full ROM Coding Level of Care Code Est Pt Level 4 (58672) Diagnoses Herpes zoster B02.9 Low TSH level R79.89 Gastroesophageal reflux disease with esophagitis without hemorrhage K21.00 Esophagitis presence: with esophagitis Esophagitis bleeding: without hemorrhage Constipation by delayed colonic transit K59.01 Time Spent (min) 23 Assessment & Plan Assessment & Plan (1) Herpes zoster: Code(s): B02.9 - Zoster without complications Category: Medical (2) Low TSH level: Code(s): R79.89 - Other specified abnormal findings of blood chemistry Category: Medical (3) GERD (gastroesophageal reflux disease): Code(s): K21.9 - Gastro-esophageal reflux disease without esophagitis Category: Medical Qualifiers: Esophagitis presence: with esophagitis Esophagitis bleeding: without hemorrhage Qualified Code(s): K21.00 - Gastro-esophageal reflux disease with esophagitis, without bleeding (4) Constipation by delayed colonic transit: Code(s): K59.01 - Slow transit constipation Category: Medical Plan Plan 1. Zoster without complications B02.9 The patient presented with a rash suspected to be shingles, which appeared almost a week ago and initially worsened at work. Due to the duration of symptoms exceeding 72 hours, antiviral treatment with Valtrex was not initiated. The patient was advised to receive the shingles vaccination to reduce the risk of future occurrences. 2. Constipation, unspecified K59.00 The patient manages constipation with MiraLAX as needed, reporting no current issues. 3. Gastro-esophageal reflux disease without esophagitis K21.9 The patient manages heartburn with omeprazole, which she takes almost daily, effectively alleviating symptoms. Orders: Orders Lipid Panel 6 Months E78.5 - Hyperlipidemia, unspecified Comprehensive [place]. Panel Fast 6 Months E78.5 - Hyperlipidemia, unspecified Complete Blood Count Auto Diff 6 Months R79.89 - Other specified abnormal findings of blood chemistry Vitamin D 25-OH Total 6 Months E55.9 - Vitamin D deficiency, unspecified Thyroid Stimulating Hormone 6 Months E04.2 - Nontoxic multinodular goiter
--- OUTSIDE RECORDS SUMMARY | 2025-01-11 13:52 | XMS_ITS | Patient Health Record ---
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 Role Phone Brittany Lagos Primary Care Provider Eliseo Muller Jr Unavailable Allergies Allergen (clinical drug ingredient) Drug/Non Drug [...] Notes Problem Gastroesophageal reflux disease without esophagitis (902017544) Gastroesophageal reflux disease without esophagitis (K21.9) Active confirmed Problem Family History of Cancer of Colon (Situation) (501791509) Family history of colon cancer (Z80.0) Active confirmed Problem Constipation (60970173) Constipation, unspecified constipation type (K59.00) Active confirmed Problem Irritable bowel syndrome characterized by constipation (760072506) Irritable bowel syndrome with constipation (K58.1) Active confirmed Problem Perforated diverticulum of large intestine (212946637) Diverticulitis of large intestine with perforation without bleeding (K57.20) Active confirmed Plan Of Treatment No Information Insurance Providers Payer Name Payer Address Payer Phone Subscriber Number Group Number Insured Name Patient Relationship to Insured Coverage Start Date Coverage End Date [facility] [address] [address] [place], [place] [id number] [employer]IP [place] Self - patient is the insured MEDICAID OF [facility] [address] [place] [address] [id number] [employer]IP [id number] Self - patient is the insured Medical (General) History Medical History History ICD Code gastroesophageal reflux disease environmental allergies Surgical History Surgery Date(Month/Year) tonsillectomy and adenoidectomy 1968 appendectomy 1973 ankle surgery 2006 perforated bowel surgery 2016
== END 2025-01-11 11:26 | disposition home or self-care (01) ==
LOC: HO.HMCH 10:58
PROVIDERS: PCP Internal Medicine; Visit Provider Internal Medicine
DX: B02.9 Zoster without complications (principal); R79.89 Other specified abnormal findings of blood chemistry; K21.00 Gastro-esophageal reflux disease with esophagitis, without bleeding; K59.01 Slow transit constipation

== ENCOUNTER → 2025-01-11 10:57 | Outpatient (BNVA) | payer MEDICARE, MEDICAID, SELFPAY | PROVIDERS: PCP Internal Medicine; Visit Provider Internal Medicine | DX: K59.01 Slow transit constipation (principal); B02.9 Zoster without complications; R79.89 Other specified abnormal findings of blood chemistry; K21.00 Gastro-esophageal reflux disease with esophagitis, without bleeding; E04.2 Nontoxic multinodular goiter; E55.9 Vitamin D deficiency, unspecified | CPT/HCPCS: 99212 ==